=== PATIENT | male | born 1955 | race Caucasian/White ===

== ENCOUNTER 2017-11-02 00:32 | Inpatient (IN) | payer MEDICARE ==
[2017-11-02 01:15] LABS: #Basophils 0.1 thou/uL (0.0-0.2); #Lymphocytes 2.5 thou/uL (1.20-3.40); #Monocytes 1.6 thou/uL (0.11-0.59); #Neutrophils 10.1 thou/uL (1.40-6.50); %Basophils 0.5 % (0.0-1.0); %Eosinophils 0.3 % (0.0-10.0); %Lymphocytes 17.3 % (21.0-51.0); %Neutrophils 70.8 % (42.0-75.0); Hemoglobin 11.9 g/dL (14.0-18.0); Mean Corpuscular HGB CONC 29.5 g/dL (32.0-36.0); Mean Corpuscular Hemoglobin 33.2 pg (27.0-31.0); Mean Platelet Volume 9.2 fL (7.4-10.4); Platelet Count 166 thou/uL (130-400); RBC Distribution Width 15.9 % (11.5-14.5); Red Blood Cell (RBC) Count 3.57 mill/uL (4.70-6.10); White Blood Cell (WBC) Count 14.3 thou/uL (4.8-10.8)
[2017-11-02 01:26] LABS: Base Excess-Venous -18.2 mmol/L (0 (+/- 2.5)); Bicarbonate (HCO3v) 8.1 mmol/L (1.0-85.0); CO2 Tension (PvCO2) 21.2 mmHg (41.0-51.0); Calcium, Ionized 0.96 mmol/L (1.12-1.32); Hemoglobin - Calc 14.3 g/dL (12.0-18.0); O2 Tension (PvO2) 82.1 mmHg (35.0-45.0); T. Carbon Dioxide 8.7 mmol/L (1.0-85.0); pH (Venous) 7.188 (7.35-7.45); vO2 Saturation-calc 93.4 % (94-98)
[2017-11-02] MEDS ORDERED: Insulin Regular 100 units/100 ml in NS IVPB SCH (01:30)
[2017-11-02 01:45] LABS: BUN (Urea Nitrogen) 89 mg/dL (8.4-25.7); Calc. Creatinine Clearance 0 mL/min (70-130); Carbon Dioxide Less than 8 mmol/L (23-31); Chloride 87 mmol/L (98-107); Estimated GFR-MDRD 8; Potassium 5.4 mmol/L (3.5-5.1); Sodium 124 mmol/L (136-145)
[2017-11-02 01:46] LABS: ALT (SGPT) 33 U/L (8-55); AST (SGOT) 36 U/L (5-34); Albumin 2.9 g/dL (3.4-4.8); Alkaline Phosphatase 208 U/L (40-150); Bilirubin, Total 0.5 mg/dL (0.2-1.2); Calcium 8.5 mg/dL (7.8-10.44); Globulin 2.6 g/dL (2.4-3.5); Glucose 1321 mg/dL (80-115); Lipase 7 U/L (8-78); Magnesium 2.5 mg/dL (1.6-2.6); Phosphorus 9.4 mg/dL (2.3-4.7); Protein, Total 5.5 g/dL (5.8-8.1)
[2017-11-02] MEDS ORDERED: D5 1/2 NS w/20 mEq KCL 1,000 ML IV PRN (02:12)
[2017-11-02] MEDS ORDERED: CCU Electrolyte Replacement 1 EACH IVPB ONE (02:12)
[2017-11-02] MEDS ORDERED: Sodium Chloride 0.9% 1,000 ML IV PRN ×4 (02:12)
[2017-11-02] MEDS ORDERED: Dextrose 5 %-0.45 % NaCl 1,000 ML IV PRN (02:12)
[2017-11-02] MEDS ORDERED: NS 0.9% w/ 20 MEQ KCL 1,000 ML IV PRN ×2 (02:12)
[2017-11-02] MEDS ORDERED: Sodium Bicarb 50 MEQ/50 ML Abboject 8.4% SYRINGE IVP SCH (02:15)
[2017-11-02] MEDS ORDERED: Milk Of Magnesia 30 ML UDCUP PO PRN (02:16)
[2017-11-02] MEDS ORDERED: Ondansetron HCl/PF 4 MG/2 ML Vial IVP PRN (02:16)
[2017-11-02] MEDS ORDERED: Magnesium 2 GM/NS 0.9% 100 ML 2 GM in Premix Bag 1 BAG IVPB PRN (02:20)
[2017-11-02] MEDS ORDERED: Potassium Chloride 20 MEQ TAB PO PRN (02:20)
[2017-11-02] MEDS ORDERED: Potassium Phosphate 15 MMOL in Sodium Chloride 0.9% 250 ML 250 ML IV PRN (02:20)
[2017-11-02] MEDS ORDERED: Potassium Phosphate 9 MMOL in Sodium Chloride 0.9% 100 ML IVPB PRN (02:20)
[2017-11-02] MEDS ORDERED: Potassium Chloride 40 MEQ in Sodium Chloride 0.9% 250 ML 250 ML IVPB PRN (02:20)
[2017-11-02] MEDS ORDERED: Potassium Phosphate 12 MMOL in Sodium Chloride 0.9% 250 ML 250 ML IV PRN (02:20)
[2017-11-02] MEDS ORDERED: Potassium Chloride 40 MEQ in Premix Bag 1 BAG IVPB PRN (02:20)
[2017-11-02] MEDS ORDERED: CCU ELECTROLYTE REPLACEMENT PROTOCOL FS PRN (02:20)
[2017-11-02] MEDS ORDERED: Magnesium Oxide 400 MG TAB PO PRN ×2 (02:20)
[2017-11-02] MEDS ORDERED: CCU Electrolyte Replacement 1 EACH FS SCH (02:45)
[2017-11-02] MEDS ORDERED: Sodium Bicarbonate 150 MEQ in Sodium Chloride 0.45% 1,000 ML IV SCH (02:45)
[2017-11-02] MEDS: Sodium Chloride 0.9% 1,000 ML IV SCH ×2 (03:18→03:30)
--- NOTE | 2017-11-02 03:21 | HP ---
PRIMARY CARE PHYSICIAN: Unknown. PRESENTING COMPLAINT: Altered mentation. HISTORY OF PRESENT ILLNESS: Mr. Evin Hooks is a 62-year-old male with a history of type 1 diabetes who presented to the emergency room at [facility] with altered mental status and Kussmaul respiration. His labs reveal blood glucose of over 1700 with elevated beta hydroxybutyrate and anion gap, as well as markedly low serum bicarbonate. The diagnosis of DKA was made. He was given IV insulin and sent to [facility]. At [facility], he was lethargic, oriented x1 with dry mucous membranes and 1+ lower extremity edema bilaterally. It is unclear what dose of insulin he takes at home or when indeed was his last dose. There is no history of reported fevers, chills, chest pain, cough or sputum production. Unclear if he has any dysuria, urgency, frequency or hematuria. He had a blood gas which showed pH of 7.188, pCO2 of 21, and pO2 of 82. Hematology showed mild leukocytosis of 14.3 with hemoglobin of 11.9 and platelet count of 166. Serum chemistry showed sodium of 124, potassium of 5.0, chloride of 87, carbon dioxide less than 8, BUN/creatinine of 89/7.44. His glucose was 1321, phosphorus 9.4 and beta hydroxybutyrate was 8.57 and was immediately started on the DKA protocol and admitted to the Critical Care. History limited 2/2 patient's altered mental status. PAST MEDICAL HISTORY: Type 1 diabetes mellitus, end-stage renal disease, hypertension, and diabetic nephropathy. PAST SURGICAL HISTORY: Status post AV fistula placement and tonsillectomy. FAMILY HISTORY: Unknown. SOCIAL HISTORY: Unknown. ALLERGIES: None. REVIEW OF SYSTEMS: Unable to obtain as patient is with altered mentation. PHYSICAL EXAMINATION: VITAL SIGNS: Blood pressure 156/94, oxygen saturation 99% on room air, respiratory rate 18, and pulse rate 76. GENERAL: Not in acute distress, lying in bed and seems comfortable. HEENT: Normocephalic, atraumatic. Dry mucous membranes. PERRLA. Not pale, anicteric. NECK: Supple, no JVD. RESPIRATORY: Vesicular breath sounds bilaterally. No wheezes or rales or rhonchi. CARDIOVASCULAR: S1, S2 only, regular rate and rhythm, no murmurs, rubs or gallops. ABDOMEN: Soft, not tender, not distended. Bowel sounds normoactive. No hepatosplenomegaly. MUSCULOSKELETAL: A 1+ bilateral lower extremity edema. NEUROLOGIC: Lethargic, oriented to person only, unable to cooperate with exam. SKIN: Warm, dry, well perfused. No edema. PSYCHIATRIC: Unable to cooperate. LABORATORY DATA: As stated in the HPI. IMAGING: None. ASSESSMENT AND PLAN: 1. Diabetic ketoacidosis. The patient with a history of diabetes mellitus on insulin, who presents in florid diabetic ketoacidosis. He has been started on an insulin drip, we will activate the diabetic ketoacidosis protocol. Check labs every 4 hours, venous blood gas every 4 hours. We will also ensure proper hydration. We will monitor his potassium, anion gap, get blood cultures, urinalysis and consider starting on antibiotics. Although, it does not seem an infection as a trigger of this ketoacidosis. We will also place on the bicarbonate drip as pH is 7.1 and bicarbonate in his serum is less than 8. We will admit to the critical care unit. 2. Hypertension. Blood pressure is fairly well controlled. We will monitor blood pressure and resume home medications once confirmed. 3. End-stage renal disease: This is according to chart and note from 12/2016, which states he is on dialysis. We will consult Nephrology. Critical care time: 35 minutes. CODE STATUS: FULL CODE. MTDD
[2017-11-02 04:31] LABS: Anion Gap 35 mmol/L (10-20); BUN (Urea Nitrogen) 90 mg/dL (8.4-25.7); Calc. Creatinine Clearance 12 mL/min (70-130); Calcium 8.4 mg/dL (7.8-10.44); Carbon Dioxide 9 mmol/L (23-31); Chloride 88 mmol/L (98-107); Estimated GFR-MDRD 8; Glucose 1118 mg/dL (80-115); Potassium 5.4 mmol/L (3.5-5.1); Sodium 127 mmol/L (136-145)
[2017-11-02 04:36] LABS: Lymphocytes 19 % (21-51); MDiff Complete? YES; Mean Corpuscular HGB CONC 30.8 g/dL (32.0-36.0); Mean Platelet Volume 8.8 fL (7.4-10.4); Monocytes 15 % (0-10); Neutrophil 66 % (42-75); Nucleated RBC 1 % (0); PLT Morphology Comment Appears Adequate; Platelet Count 139 thou/uL (130-400); RBC Distribution Width 15.8 % (11.5-14.5); Red Blood Cell (RBC) Count 3.64 mill/uL (4.70-6.10); White Blood Cell (WBC) Count 12.9 thou/uL (4.8-10.8)
[2017-11-02] MEDS: Sodium Bicarbonate 150 MEQ in Sodium Chloride 0.45% 1,000 ML IV SCH ×2 (04:49→17:20)
[2017-11-02 06:23] LABS: Glucose 1035 mg/dL (80-115)
[2017-11-02] MEDS ORDERED: Labetalol HCl 100 MG/20 ML VIAL SLOW IVP PRN (06:25)
[2017-11-02 07:12] LABS: Glucose 959 mg/dL (80-115)
[2017-11-02 07:49] LABS: Anion Gap 31 mmol/L (10-20); BUN (Urea Nitrogen) 87 mg/dL (8.4-25.7); Calc. Creatinine Clearance 12 mL/min (70-130); Calcium 8.5 mg/dL (7.8-10.44); Carbon Dioxide 14 mmol/L (23-31); Chloride 91 mmol/L (98-107); Estimated GFR-MDRD 8; Potassium 4.8 mmol/L (3.5-5.1); Sodium 131 mmol/L (136-145)
[2017-11-02 08:24] LABS: Glucose 896 mg/dL (80-115)
[2017-11-02 08:56] LABS: Actual Bicarbonate (HCO3v) 17 mEq/L (22-26); Base Excess -6.3 mEq/L (0 (+/- 2.5)); Calcium, Ionized 0.97 mmol/L (1.16-1.32); Chloride (ABG LAB) 94 mmol/L (98-106); Hematocrit-VBG 39.5 % (39-50); Hemoglobin (Hb) 11.1 g/dL (13.1-17.2); Sodium 128.6 mmol/L (133-146); pH (venous) 7.42 (7.35-7.45)
[2017-11-02 08:58] LABS: Actual Bicarbonate (HCO3v) 15 mEq/L (22-26); Base Excess -9.8 mEq/L (0 (+/- 2.5)); Hematocrit-VBG 42.5 % (39-50); Hemoglobin (Hb) 11.4 g/dL (13.1-17.2); Potassium - ABG Lab 4.5 mmol/L (3.70-5.30); Sodium 129.5 mmol/L (133-146); pH (venous) 7.32 (7.35-7.45)
[2017-11-02 08:59] LABS: Calcium, Ionized 0.92 mmol/L (1.16-1.32); Chloride (ABG LAB) 93 mmol/L (98-106)
[2017-11-02] MEDS ORDERED: Prevnar 13-Val Conj/PF 0.5 ML SYRINGE IM ONE (09:00)
[2017-11-02 09:23] LABS: HBSAg Index 0.15 S/CO (0-0.99); Hep B Surf Ag Non-Reactive S/CO (NonReactive)
[2017-11-02 09:31] LABS: Glucose 736 mg/dL (80-115)
[2017-11-02 09:46] LABS: Glucose 655 mg/dL (80-115)
[2017-11-02 10:15] LABS: Glucose 516 mg/dL (80-115)
[2017-11-02 10:44] LABS: pH (venous) 7.38 (7.35-7.45)
[2017-11-02 10:45] LABS: Actual Bicarbonate (HCO3v) 23 mEq/L (22-26)
[2017-11-02 10:48] LABS: Hematocrit-VBG 39.8 % (39-50); Hemoglobin (Hb) 11.3 g/dL (13.1-17.2)
[2017-11-02 10:49] LABS: Calcium, Ionized 1.04 mmol/L (1.16-1.32); Chloride (ABG LAB) 95 mmol/L (98-106); Potassium - ABG Lab 3.7 mmol/L (3.70-5.30); Sodium 135.6 mmol/L (133-146)
[2017-11-02 11:14] LABS: Anion Gap 23 mmol/L (10-20); BUN (Urea Nitrogen) 66 mg/dL (8.4-25.7); Calc. Creatinine Clearance 16 mL/min (70-130); Calcium 8.4 mg/dL (7.8-10.44); Carbon Dioxide 22 mmol/L (23-31); Chloride 95 mmol/L (98-107); Estimated GFR-MDRD 10; Glucose 526 mg/dL (80-115); Potassium 3.9 mmol/L (3.5-5.1); Sodium 136 mmol/L (136-145)
[2017-11-02 11:22] LABS: Glucose 373 mg/dL (80-115)
--- NOTE | 2017-11-02 11:52 | PDOC.PN ---
- Subjective Encounter Start Date: 11/02/17 Encounter Start Time: 11:51 CC: Altered mental status Sub: pt is lethargic but more arousable - Objective Vital Signs & Weight: Vital Signs (12 hours) Temp 11/02/17 07:00 99.7 F H 11/02/17 05:00 97.7 F Weight Weight 182 lb 5.156 oz Most Recent Monitor Data Heart Rate from ECG 79 NIBP 143/68 NIBP BP-Mean 99 Respiration from ECG 0 SpO2 100 I&O: 11/01/17 11/02/17 11/03/17 06:59 06:59 06:59 Intake Total 170 Output Total 0 0 Balance 170 0 Result Diagrams: 11/02/17 03:43 11/02/17 11:14 Phys Exam - Physical Examination Constitutional: NAD lethargic HEENT: moist MMs Respiratory: no wheezing, no rales poor inspiratory effort, no accessory muscle usage seen s1 s2 present, mild tachy, no rubs, no gallop Gastrointestinal: soft, non-tender, positive bowel sounds Musculoskeletal: no edema Neurological: non-focal lethargic, but arousable, not following all commands Deviation from normal: mood lethargic Skin: no rash Dx/Plan - Plan Pt IS 62 YRS OLD MALE 1. DKA 2. DM Type 2 3. Anion gap metabolic acidosis 4. ESRD 5. Metabolic encephalopathy 6. HTN Plan: will check CT head with out contrast and ammonia levels now Critical care team on board. Continue insulin drip and will wean to subq insulin per protocol Monitor mental status closely Monitor bp closely Case d/w pt & RN Admitted early this morning.
[2017-11-02 12:55] LABS: Base Excess 2.1 mEq/L (0 (+/- 2.5)); pH (venous) 7.45 (7.35-7.45)
[2017-11-02 12:56] LABS: Calcium, Ionized 1.03 mmol/L (1.16-1.32); Hematocrit-VBG 39.4 % (39-50); Hemoglobin (Hb) 11.4 g/dL (13.1-17.2); Potassium - ABG Lab 3.1 mmol/L (3.70-5.30); Sodium 137.9 mmol/L (133-146)
[2017-11-02 13:05] LABS: Glucose 272 mg/dL (80-115)
[2017-11-02 13:23] LABS: Troponin I 0.637 ng/mL (< 0.028)
[2017-11-02 13:46] LABS: Glucose 211 mg/dL (80-115)
[2017-11-02 13:50] LABS: Potassium 3.3 mmol/L (3.5-5.1)
--- NOTE | 2017-11-02 13:50 | CON ---
DATE OF CONSULTATION: 11/02/2017 RENAL MEDICINE HISTORY OF PRESENT ILLNESS: Mr. Hooks is a 62-year-old white male with a history of ESRD from diabe tic nephropathy and admitted for mental status change. He was noted to be in DKA with carbon dioxide of less than 8. His glucose was more than 1000 mg percent. The patient is the ICU on insulin drip. We are being consulted for his maintenance hemodialysis. He is currently undergoing dialysis witho ut heparin. The filter clotted and we had to resume back/restart dialysis. I am at the bedside supe rvising his dialysis. REVIEW OF SYSTEMS: Positive for mental status change. No chest pain, no shortness of breath, no gregory sea, no vomiting, no diarrhea, no constipation, no syncopal episode, no productive cough, no fever or chills. Decreased appetite, occasional nausea, no gross hematuria, no diarrhea. MEDICATIONS: Currently on lactulose 20 grams every day p.r.n., magnesium sulfate 2 grams over 2 hour s, electrolyte protocol. Currently on bicarbonate drip. Patient also on an insulin drip 6 units per hour. PAST MEDICAL HISTORY: 1. ESRD from diabetic nephropathy. 2. Hypertension. 3. Type 2 diabetes mellitus. PAST SURGICAL HISTORY: 1. Status post AV fistula placement. 2. Status post cuffed dialysis catheter placement. 3. Status post tonsillectomy. SOCIAL HISTORY: Patient is single, . One child lives in [place]. Currently, no smoking, occa sional alcohol intake, no IV drug abuse, no blood transfusion. Retired [employer]. Education one yea r college. FAMILY HISTORY: No family history of ESRD. ALLERGIES: None. TRAUMA: None. IMMUNIZATIONS: Up to date. HOSPITALIZATIONS: Please see past medical history. PHYSICAL EXAMINATION: VITAL SIGNS: Blood pressure is 143/68, heart rate 79, respiratory rate 12, and pulse ox 99%. GENERAL: Patient is arousable, but confused, not in overt distress. SKIN: Adequate turgor. HEENT: He has pinkish conjunctivae, anicteric sclerae. NECK: No neck mass, no carotid bruits, no JVD. CHEST: No deformities. LUNGS: Clear breath sounds, no wheezing, no crackles. HEART: Normal sinus rhythm. No murmurs, no gallops, no rubs. ABDOMEN: Globular, soft, nontender, no masses. EXTREMITIES: No edema. NEUROLOGIC: Patient is confused, moving all extremities. No tremors, no asterixis. LABORATORY DATA: Laboratories of 11/02/2017, white count 12.9, hemoglobin 12, sodium 136, potassium 3.9, chloride 95, carbon dioxide 22, BUN 66, creatinine 5.57, glucose 596, calcium 8.4. ASSESSMENT AND PLAN: 1. Diabetic ketoacidosis - currently on insulin drip. Continue supportive care. The patient has so me compliance issues with his insulin regimen. 2. End-stage renal disease, stable. Tolerating current hemodialysis regimen. Fluid removal as tole rated by the patient. No changes to be made with the current dialysis regimen. My last review of e Kt/V suggests adequately dialyzed with the current dialysis regimen. Agree with current management.
--- NOTE | 2017-11-02 14:14 | CON ---
DATE OF CONSULTATION: 11/02/2017 Mr. Hooks is a 62-year-old male with diabetes. He is also a dialysis patient. He apparently presented with altered mental status and was referred here. He was found to be hyperos molar. PAST MEDICAL HISTORY: Remarkable for hypertension and diabetic nephropathy and vascular access proce dures. PAST SURGICAL HISTORY: Remarkable for a tonsillectomy. FAMILY HISTORY: Not reliably obtainable. SOCIAL HISTORY: It is unknown whether he smokes or drinks. ALLERGIES: There are no allergies recorded. REVIEW OF SYSTEMS: Not accurately obtainable. PHYSICAL EXAMINATION: GENERAL: He will awaken. He will nod. He is confused, answers questions in one word sentences. VITAL SIGNS: Heart rate 79, blood pressure 143/68, respiratory rates 18. He is in no distress. HEENT: Pupils react. Sclerae is anicteric. Extraocular movements appear to be full. He moves all of his extremities. NECK: Without lymphadenopathy. LUNGS: Clear anteriorly. HEART: Regular rhythm. S1 and S2 are normal. ABDOMEN: Soft and nontender. EXTREMITIES: Without clubbing, cyanosis, or edema. LABORATORY DATA: White count 12.9, hemoglobin 12.0, platelets 139. Sodium 137, potassium 3.1, chlor shalom 97. PH was 7.181, CO2 21, PO2 82. There are no cultures reported out. Glucose was 1321, it is down to 211. IMPRESSION: 1. Hyperosmolar coma. 2. Metabolic acidosis which could be a mixture of acidosis from end-stage renal disease and starvati on ketosis. At 62 years of age, it would seem that it would be unlikely that he is a type 1 diabetic (a true type 1). His insulin drip needs to be decreased. His hyperglycemia needs to be corrected slowly, although it has already been corrected down to the 200 range. Letting him drift back up would not be harmful. Hopefully, he will not develop cerebral edema with c orrection of his hyperosmolar state. He should remain in the Critical Care Unit. Critical care time was 30 minutes.
--- NOTE | 2017-11-02 16:25 | CT ---
CT BRAIN WITHOUT CONTRAST: INDICATIONS: Altered mental status. History of DKA. Concern for possible lung mass. FINDINGS: There are prominent calcifications involving the arteries of the scalp. No acute infarct, hemorrhage , or hydrocephalus present. The septum pellucidum and third ventricle are midline. The mastoid air cells are clear. The paranasal sinuses are clear. IMPRESSION: No acute intracranial abnormality. POS: RACHEL
[2017-11-02] MEDS: Pantoprazole 40 MG VIAL IVP SCH (17:16)
[2017-11-02 19:59] LABS: Anion Gap 15 mmol/L (10-20); BUN (Urea Nitrogen) 37 mg/dL (8.4-25.7); Calc. Creatinine Clearance 23 mL/min (70-130); Calcium 8.2 mg/dL (7.8-10.44); Carbon Dioxide 29 mmol/L (23-31); Chloride 99 mmol/L (98-107); Estimated GFR-MDRD 15; Glucose 123 mg/dL (80-115); Potassium 3.9 mmol/L (3.5-5.1); Sodium 139 mmol/L (136-145)
[2017-11-02 20:16] LABS: Critical Call Chem Troponin I RESULT DECREASING; Troponin I 0.581 ng/mL (< 0.028)
[2017-11-02] MEDS ORDERED: Dextrose 5% in Water 1,000 ML IV PRN (20:40)
[2017-11-02] MEDS ORDERED: Insulin Detemir 100 UNITS/ML 35 UNITS in Pre-Filled Syringe 1 EACH SC SCH (20:45)
[2017-11-03 00:17] LABS: Critical Call Chem Troponin I RESULT DECREASING; Troponin I 0.577 ng/mL (< 0.028)
[2017-11-03] MEDS: Dextrose 50% Abboject 50 ML SYRINGE IVP PRN ×2 (03:34→03:53)
[2017-11-03] MEDS: Sodium Bicarbonate 150 MEQ in Sodium Chloride 0.45% 1,000 ML IV SCH (03:37)
[2017-11-03] MEDS ORDERED: Dextrose 50% Abboject 50 ML SYRINGE SLOW IVP SCH (04:00)
[2017-11-03] MEDS: Dextrose 10% in Water 1,000 ML IV SCH ×2 (04:06→18:08)
[2017-11-03 04:30] LABS: #Lymphocytes 1.8 thou/uL (1.20-3.40); #Monocytes 0.8 thou/uL (0.11-0.59); #Neutrophils 8.3 thou/uL (1.40-6.50); %Basophils 0.2 % (0.0-1.0); %Eosinophils 0.4 % (0.0-10.0); %Lymphocytes 16.3 % (21.0-51.0); %Monocytes 7.4 % (0.0-10.0); %Neutrophils 75.7 % (42.0-75.0); Hemoglobin 12.4 g/dL (14.0-18.0); Mean Corpuscular HGB CONC 31.6 g/dL (32.0-36.0); Mean Corpuscular Hemoglobin 31.7 pg (27.0-31.0); Mean Platelet Volume 8.4 fL (7.4-10.4); Platelet Count 121 thou/uL (130-400); RBC Distribution Width 16.1 % (11.5-14.5); Red Blood Cell (RBC) Count 3.92 mill/uL (4.70-6.10); White Blood Cell (WBC) Count 10.9 thou/uL (4.8-10.8)
[2017-11-03 04:42] LABS: Anion Gap 12 mmol/L (10-20); BUN (Urea Nitrogen) 39 mg/dL (8.4-25.7); Calc. Creatinine Clearance 20 mL/min (70-130); Calcium 8.2 mg/dL (7.8-10.44); Carbon Dioxide 32 mmol/L (23-31); Chloride 101 mmol/L (98-107); Estimated GFR-MDRD 14; Glucose 29 mg/dL (80-115); Phosphorus 4.7 mg/dL (2.3-4.7); Potassium 3.3 mmol/L (3.5-5.1); Sodium 142 mmol/L (136-145)
[2017-11-03] MEDS: Pantoprazole 40 MG VIAL IVP SCH (08:29)
--- NOTE | 2017-11-03 09:12 | PRG ---
DATE OF SERVICE: 11/03/2017 RENAL MEDICINE SUBJECTIVE: Mr. Hooks is a 62-year-old white male with ESRD and was admitted for DKA. His blood woodward gars much improved. He is now mentating better. Yesterday, he was quite confused. He underwent hem odialysis yesterday. He voices no new complaints today. He denies any chest pain or shortness of br eath. PHYSICAL EXAMINATION: VITAL SIGNS: Blood pressure 156/54, heart rate 54, respiratory rate 12, pulse ox 100%. GENERAL: Awake, alert, comfortable, not in distress. SKIN: Adequate turgor. HEENT: He has pinkish conjunctivae, anicteric sclerae. NECK: No neck mass, no carotid bruits, no JVD. CHEST: No deformities. LUNGS: Clear breath sounds. HEART: Normal sinus rhythm. No murmurs, no gallops, no rubs. ABDOMEN: Globular, soft, nontender, no masses. EXTREMITIES: No edema, no deformities. MEDICATIONS: Medications of 11/03/2017 reviewed. LABORATORY DATA: Laboratories of 11/03/2017; white count 10, hemoglobin 12.4. Platelet count 121,000. Sodium 142, potassium 3.3, chloride 101, carbon dioxide 32, BUN 39, creatinine 4.45, glucose is now 1 26. ASSESSMENT AND PLAN: 1. Diabetic ketoacidosis - clinically, much improved. The patient was placed on an insulin drip. C urrently doing better. Sugar was a little low this morning and he was given D50. He is now tolerati ng p.o. 2. End-stage renal disease, stable. We will continue current Thursday, Thursday, Thursday dialysis. A gain, fluid removal only as tolerated by the patient. Adjust heparin dose. Adjust potassium in the dialysis bath. 3. Hyperphosphatemia - this is chronic in nature. Start Renvela 800 mg 1 tab t.i.d. with meals.
[2017-11-03] MEDS: Sevelamer Carbonate 800 MG TAB PO SCH ×2 (12:02→18:00)
[2017-11-03 12:32] LABS: Anion Gap 11 mmol/L (10-20); BUN (Urea Nitrogen) 40 mg/dL (8.4-25.7); Calc. Creatinine Clearance 19 mL/min (70-130); Calcium 7.9 mg/dL (7.8-10.44); Carbon Dioxide 33 mmol/L (23-31); Chloride 99 mmol/L (98-107); Estimated GFR-MDRD 13; Glucose 97 mg/dL (80-115); Potassium 3.9 mmol/L (3.5-5.1); Sodium 139 mmol/L (136-145)
--- NOTE | 2017-11-03 13:53 | PDOC.PN ---
- Subjective Encounter Start Date: 11/03/17 Encounter Start Time: 10:30 Subjective: pt up in bed sleeping, easily arousable. no complains - Objective Vital Signs & Weight: Vital Signs (12 hours) Temp Pulse Resp Pulse Ox 11/03/17 12:00 98.6 F 11/03/17 08:00 98.0 F 65 18 96 11/03/17 04:00 99.2 F Weight Admit Weight 182 lb Weight 173 lb 8.061 oz Most Recent Monitor Data Heart Rate from ECG 74 NIBP 164/98 NIBP BP-Mean 128 Respiration from ECG 0 SpO2 100 I&O: 11/02/17 11/03/17 11/04/17 06:59 06:59 06:59 Intake Total 170 2658.4 480 Output Total 0 0 0 Balance 170 2658.4 480 Result Diagrams: 11/03/17 04:20 11/03/17 12:03 Additional Labs: Accuchecks 11/03/17 11/03/17 11/03/17 11:27 09:15 06:34 POC Glucose 93 109 126 H 11/03/17 11/03/17 11/03/17 05:31 05:02 04:20 POC Glucose 92 53 L* Less than 35 L* 11/03/17 11/03/17 11/03/17 04:06 03:51 03:35 POC Glucose Less than 35 L* Less than 35 L* Less than 35 L* 11/02/17 11/02/17 11/02/17 23:46 20:30 19:40 POC Glucose 83 143 H 112 H 11/02/17 11/02/17 17:48 15:38 POC Glucose 208 H 350 H Phys Exam - Physical Examination HEENT: PERRLA Neck: no nodes Respiratory: no wheezing, no rales Cardiovascular: RRR, no significant murmur Gastrointestinal: soft, non-tender Musculoskeletal: no edema Neurological: non-focal Dx/Plan - Plan * . Pt IS 62 YRS OLD MALE 1. DKA 2. DM Type 2 3. Anion gap metabolic acidosis 4. ESRD 5. Metabolic encephalopathy 6. HTN Plan: pt off insulin drip, was given lantus last night and became hypoglycemic. will decrease his lantus dose to 10units for now in additional to his sliding scale. ct head is negative. dialysis per nephrology will start pt on his [facility] to verify his meds Review of Systems - Review of Systems Eyes: negative: Pain, Vision Change, Conjunctivae Inflammation, Eyelid Inflammation, Redness, Other Respiratory: negative: Cough, Dry, Shortness of Breath, Hemoptysis, SOB with Excertion, Pleuritic Pain, Sputum, Wheezing Cardiovascular: negative: chest pain, palpitations, orthopnea, paroxysmal nocturnal dyspnea, edema, light headedness, other Gastrointestinal: negative: Nausea, Vomiting, Abdominal Pain, Diarrhea, Constipation, Melena, Hematochezia, Other Genitourinary: negative: Dysuria, Frequency, Incontinence, Hematuria, Retention , Other Musculoskeletal: negative: Neck Pain, Shoulder Pain, Arm Pain, Back Pain, Hand Pain, Leg Pain, Foot Pain, Other - Medications/Allergies Allergies/Adverse Reactions: Allergies Allergy/AdvReac Type Severity Reaction Status Date / Time No Known Allergies Allergy Verified 11/02/17 03:41 Medications: Current Medications Dextrose/Water (Dextrose 50%) 25 gm IVP PRN PRN PRN Reason: HYPOGLYCEMIA PROTOCOL Last Admin: 11/03/17 03:53 Dose: 25 gm Glucagon (Glucagon) 1 mg IM PRN PRN PRN Reason: HYPOGLYCEMIA PROTOCOL Dextrose/Water (D5w) 1,000 mls @ 0 mls/hr IV INF PRN; As Directed PRN Reason: HYPOGLYCEMIA PROTOCOL Dextrose/Water (Dextrose 10% In Water) 1,000 mls @ 70 mls/hr IV .[id number] [facility] Last Admin: 11/03/17 04:06 Dose: 1,000 mls Insulin Detemir 10 units/ (Miscellaneous Medication) 0.1 mls @ 0 mls/hr SC [facility] Insulin Human Regular (Humulin R) 0 units SC .MODERATE SLIDING SC PRN; Protocol PRN Reason: MODERATE SLIDING SCALE Labetalol HCl (Normodyne) 10 mg SLOW IVP Q4H PRN PRN Reason: SBP Greater Than 180 Lactulose (Lactulose) 20 gm PO DAILYPRN PRN PRN Reason: Constipation Ondansetron HCl (Zofran) 4 mg IVP Q6H PRN PRN Reason: Nausea/Vomiting Pantoprazole Sodium (Protonix) 40 mg IVP DAILY [facility] Last Admin: 11/03/17 08:29 Dose: 40 mg Sevelamer Carbonate (Renvela) 800 mg PO TID-[facility] Last Admin: 11/03/17 12:02 Dose: 800 mg Sodium Chloride (Flush - Normal Saline) 10 ml IVF Q12HR [facility] Last Admin: 11/03/17 08:29 Dose: 10 ml Sodium Chloride (Flush - Normal Saline) 10 ml IVF PRN PRN PRN Reason: Saline Flush
[2017-11-03] MEDS: NIFEdipine 10 MG CAP PO SCH ×2 (15:54→21:07)
--- NOTE | 2017-11-03 16:15 | PRG ---
DATE OF SERVICE: 11/03/2017 SUBJECTIVE: Mr. Hooks says he is feeling better. He is little slow to respond to questions, but an swers appropriately. OBJECTIVE: VITAL SIGNS: His heart rate is in the 70s, blood pressure 164/98, respiratory rates in the teens. LUNGS: Clear. HEART: Regular rhythm. ABDOMEN: Soft. LABORATORY DATA: White count 10.9, hemoglobin 12.4, and platelets 121. Sodium 139, potassium 3.9, chloride 99, bicarbonate 32, BUN 40, and creatinine 4.6. Intake and output is positive 2658 IMPRESSION: 1. End-stage renal disease on dialysis. 2. Brittle diabetes, status post hyperosmolar coma, clinically stable. He denies headache. He is stable to move out of the Critical Care Unit in my opinion. Blood sugar will need to be watche d closely.
[2017-11-03] MEDS ORDERED: Insulin Detemir 100 UNITS/ML 35 UNITS in Pre-Filled Syringe 1 EACH SC SCH (21:00)
[2017-11-03] MEDS ORDERED: Insulin Detemir 100 UNITS/ML 10 UNITS in Pre-Filled Syringe 1 EACH SC SCH (21:00)
[2017-11-04] MEDS ORDERED: Lorazepam 0.5 MG TAB PO SCH (00:45)
[2017-11-04 05:12] LABS: #Lymphocytes 1.9 thou/uL (1.20-3.40); #Monocytes 0.4 thou/uL (0.11-0.59); #Neutrophils 2.9 thou/uL (1.40-6.50); %Basophils 0.9 % (0.0-1.0); %Eosinophils 0.5 % (0.0-10.0); %Lymphocytes 35.9 % (21.0-51.0); %Monocytes 7.7 % (0.0-10.0); %Neutrophils 55.1 % (42.0-75.0); Hemoglobin 11.1 g/dL (14.0-18.0); Mean Corpuscular Hemoglobin 32.2 pg (27.0-31.0); Mean Platelet Volume 9.1 fL (7.4-10.4); Platelet Count 69 thou/uL (130-400); RBC Distribution Width 16.2 % (11.5-14.5); Red Blood Cell (RBC) Count 3.44 mill/uL (4.70-6.10); White Blood Cell (WBC) Count 5.3 thou/uL (4.8-10.8)
[2017-11-04 05:37] LABS: Anion Gap 14 mmol/L (10-20); BUN (Urea Nitrogen) 47 mg/dL (8.4-25.7); Calc. Creatinine Clearance 16 mL/min (70-130); Calcium 7.3 mg/dL (7.8-10.44); Carbon Dioxide 28 mmol/L (23-31); Chloride 96 mmol/L (98-107); Estimated GFR-MDRD 11; Glucose 101 mg/dL (80-115); Phosphorus 5.1 mg/dL (2.3-4.7); Sodium 134 mmol/L (136-145)
[2017-11-04] MEDS: Sevelamer Carbonate 800 MG TAB PO SCH ×3 (07:46→18:13)
[2017-11-04] MEDS: NIFEdipine 10 MG CAP PO SCH ×2 (09:00→14:28)
[2017-11-04] MEDS: Pantoprazole 40 MG VIAL IVP SCH (09:00)
--- NOTE | 2017-11-04 10:26 | PRG ---
DATE OF SERVICE: 11/04/2017 Mr. Hooks is a 62-year-old white male with ESRD on maintenance hemodialysis and admitted for DKA. S talia the initial episode of DKA he is much improved, blood sugars improved. He is now currently unde rgoing hemodialysis. I am at the bedside supervising his dialysis. He voices no new complaints. He denies any chest pain, shortness of breath. PHYSICAL EXAMINATION: VITAL SIGNS: Blood pressure 156/84, heart rate 78, respiratory rate 16, temperature 98.4, pulse ox 9 6%. GENERAL: Noted to be awake, alert, comfortable, not in distress. SKIN: Adequate turgor. HEENT: He has pinkish conjunctivae, anicteric sclerae. NECK: No neck mass, no carotid bruits, no JVD. CHEST: No deformities. LUNGS: Clear breath sounds. HEART: Normal sinus rhythm. No murmur, no gallops, no rubs. ABDOMEN: Globular, soft, nontender. No masses. EXTREMITIES: No edema. MEDICATIONS: 11/04/2017 - Reviewed. LABORATORIES 11/04/2017 - White count 5.3, hemoglobin 11.1. Sodium 134, potassium 4, chloride 96, ca rbon dioxide 28, BUN 57, creatinine 5.38, calcium 7.3, phosphorus 5.1. ASSESSMENT AND PLAN: 1. Hyperphosphatemia. The patient started on Renvela 800 mg 1 tab t.i.d. with meals. 2. End-stage renal disease, stable. We will continue current maintenance hemodialysis on Thursday, , and Thursday. Again, fluid removal as tolerated. 3. Diabetic ketoacidosis, resolved. Continue current insulin regimen. Overall I agree with current management. Recheck base met and CBC in a.m.
[2017-11-04] MEDS: Dextrose 10% in Water 1,000 ML IV SCH (14:28)
[2017-11-04] MEDS ORDERED: Acetaminophen 325 MG TAB PO PRN (14:34)
--- NOTE | 2017-11-04 14:38 | PDOC.PN ---
- Subjective Encounter Start Date: 11/04/17 Encounter Start Time: 11:00 Subjective: pt up in dialysis no compalins - Objective Vital Signs & Weight: Vital Signs (12 hours) Temp Pulse Resp BP BP BP Pulse Ox 11/04/17 14:24 180/109 H 11/04/17 08:00 98.4 F 78 16 96 11/04/17 07:34 98.4 F 78 16 156/84 H 96 11/04/17 04:00 98.2 F 73 18 146/75 H 97 Weight Admit Weight 182 lb Weight 173 lb 8.061 oz Most Recent Monitor Data Heart Rate from ECG 74 NIBP 138/71 NIBP BP-Mean 103 Respiration from ECG 15 SpO2 99 I&O: 11/03/17 11/04/17 11/05/17 06:59 06:59 06:59 Intake Total 2658.4 2510 Output Total 0 0 Balance 2658.4 2510 Result Diagrams: 11/04/17 04:23 11/04/17 04:23 Additional Labs: Accuchecks 11/04/17 11/04/17 11/04/17 07:35 04:42 00:19 POC Glucose 82 100 129 H 11/03/17 11/03/17 19:59 17:11 POC Glucose 108 78 Phys Exam - Physical Examination HEENT: PERRLA Neck: no nodes Respiratory: no wheezing, no rales Cardiovascular: RRR, no significant murmur Gastrointestinal: soft, non-tender Musculoskeletal: no edema Dx/Plan - Plan * . Pt IS 62 YRS OLD MALE 1. DKA 2. DM Type 1? 3. Anion gap metabolic acidosis 4. ESRD 5. Metabolic encephalopathy 6. HTN Plan: pt off insulin drip, was given lantus last night and became hypoglycemic. will decrease his lantus dose to 10units for now in additional to his sliding scale. 11/04 will decrease levemir to 5units and lower d10 at 50cc/hr ct head is negative. dialysis per nephrology will start pt on his procardia/lisinopril and hydralizine Review of Systems - Review of Systems Eyes: negative: Pain, Vision Change, Conjunctivae Inflammation, Eyelid Inflammation, Redness, Other ENT: negative: Ear Pain, Ear Discharge, Nose Pain, Nose Discharge, Nose Congestion, Mouth Pain, Mouth Swelling, Throat Pain, Throat Swelling, Other Respiratory: negative: Cough, Dry, Shortness of Breath, Hemoptysis, SOB with Excertion, Pleuritic Pain, Sputum, Wheezing Cardiovascular: negative: chest pain, palpitations, orthopnea, paroxysmal nocturnal dyspnea, edema, light headedness, other Gastrointestinal: negative: Nausea, Vomiting, Abdominal Pain, Diarrhea, Constipation, Melena, Hematochezia, Other Genitourinary: negative: Dysuria, Frequency, Incontinence, Hematuria, Retention , Other Musculoskeletal: negative: Neck Pain, Shoulder Pain, Arm Pain, Back Pain, Hand Pain, Leg Pain, Foot Pain, Other - Medications/Allergies Allergies/Adverse Reactions: Allergies Allergy/AdvReac Type Severity Reaction Status Date / Time No Known Allergies Allergy Verified 11/02/17 03:41 Medications: Current Medications Acetaminophen (Tylenol) 650 mg PO Q6H PRN PRN Reason: Pain Dextrose/Water (Dextrose 50%) 25 gm IVP PRN PRN PRN Reason: HYPOGLYCEMIA PROTOCOL Last Admin: 11/03/17 03:53 Dose: 25 gm Glucagon (Glucagon) 1 mg IM PRN PRN PRN Reason: HYPOGLYCEMIA PROTOCOL Hydralazine HCl (Apresoline) 25 mg PO TID [facility] Dextrose/Water (D5w) 1,000 mls @ 0 mls/hr IV INF PRN; As Directed PRN Reason: HYPOGLYCEMIA PROTOCOL Insulin Detemir 5 units/ (Miscellaneous Medication) 0.05 mls @ 0 mls/hr SC HS [facility] Dextrose/Water (Dextrose 10% In Water) 1,000 mls @ 50 mls/hr IV .Q20H [facility] Insulin Human Regular (Humulin R) 0 units SC .MODERATE SLIDING SC PRN; Protocol PRN Reason: MODERATE SLIDING SCALE Lactulose (Lactulose) 20 gm PO DAILYPRN PRN PRN Reason: Constipation Lisinopril (Zestril) 20 mg PO DAILY [facility] Nifedipine (Procardia Xl) 60 mg PO BID [facility] Ondansetron HCl (Zofran) 4 mg IVP Q6H PRN PRN Reason: Nausea/Vomiting Pantoprazole Sodium (Protonix) 40 mg PO DAILY [facility] Sevelamer Carbonate (Renvela) 800 mg PO TID-[facility] Last Admin: 11/04/17 14:28 Dose: 800 mg Sodium Chloride (Flush - Normal Saline) 10 ml IVF Q12HR [facility] Last Admin: 11/04/17 07:47 Dose: 10 ml Sodium Chloride (Flush - Normal Saline) 10 ml IVF PRN PRN PRN Reason: Saline Flush
[2017-11-04] MEDS ORDERED: Dextrose 10% in Water 1,000 ML IV SCH (14:45)
[2017-11-04] MEDS ORDERED: Lisinopril 20 MG TAB PO SCH (15:00)
[2017-11-04 15:07] VITALS: BMI 25.6
[2017-11-04] MEDS: hydrALAZINE 25 MG TAB PO SCH ×2 (15:32→21:14)
[2017-11-04] MEDS ORDERED: Insulin Detemir 100 UNITS/ML 5 UNITS in Pre-Filled Syringe 1 EACH SC SCH (21:00)
[2017-11-04] MEDS: NIFEdipine XL 60 MG TAB PO SCH (21:14)
[2017-11-04] MEDS: Lorazepam 0.5 MG TAB PO PRN (21:16)
[2017-11-04] MEDS: Insulin Regular 300 UNITS/3 ML VIAL SC PRN (21:29)
[2017-11-05 08:14] LABS: #Lymphocytes 1.8 thou/uL (1.20-3.40); #Monocytes 0.5 thou/uL (0.11-0.59); #Neutrophils 3.2 thou/uL (1.40-6.50); %Basophils 0.8 % (0.0-1.0); %Eosinophils 0.7 % (0.0-10.0); %Lymphocytes 32.8 % (21.0-51.0); %Monocytes 8.5 % (0.0-10.0); %Neutrophils 57.2 % (42.0-75.0); Hemoglobin 11.6 g/dL (14.0-18.0); Mean Corpuscular HGB CONC 31.6 g/dL (32.0-36.0); Mean Corpuscular Hemoglobin 32.1 pg (27.0-31.0); Mean Platelet Volume 10.8 fL (7.4-10.4); Platelet Count 47 thou/uL (130-400); RBC Distribution Width 15.9 % (11.5-14.5); White Blood Cell (WBC) Count 5.6 thou/uL (4.8-10.8)
[2017-11-05 08:42] LABS: Anion Gap 17 mmol/L (10-20); BUN (Urea Nitrogen) 37 mg/dL (8.4-25.7); Calc. Creatinine Clearance 19 mL/min (70-130); Calcium 7.7 mg/dL (7.8-10.44); Carbon Dioxide 25 mmol/L (23-31); Chloride 96 mmol/L (98-107); Estimated GFR-MDRD 13; Glucose 165 mg/dL (80-115); Phosphorus 4.7 mg/dL (2.3-4.7); Potassium 4.3 mmol/L (3.5-5.1); Sodium 134 mmol/L (136-145)
[2017-11-05] MEDS: Sevelamer Carbonate 800 MG TAB PO SCH ×3 (09:20→17:14)
[2017-11-05] MEDS: hydrALAZINE 25 MG TAB PO SCH ×2 (09:20→14:02)
[2017-11-05] MEDS: NIFEdipine XL 60 MG TAB PO SCH (09:21)
[2017-11-05] MEDS: Insulin Detemir 100 UNITS/ML 10 UNITS in Pre-Filled Syringe 1 EACH SC SCH (09:27)
--- NOTE | 2017-11-05 10:32 | PRG ---
DATE OF SERVICE: 11/05/2017 SERVICE: Renal Medicine. SUBJECTIVE: Mr. Hooks is a 62-year-old white male with ESRD - on maintenance hemodialysis and admit [place]ingo for DKA. He has been improving over the last few days. He is tolerating his hemodialysis. Toda y, he has no new complaints. He denies any chest pain or shortness of breath. His p.o. intake is mu ch improved. PHYSICAL EXAMINATION: VITAL SIGNS: Blood pressure is 136/82, heart rate 76, respiratory rate 16, temperature 98, pulse ox is 96%. GENERAL: Awake, alert, supine, comfortable, not in distress. SKIN: Adequate turgor. HEENT: Pinkish conjunctivae, anicteric sclerae. NECK: No neck mass, no carotid bruits, no JVD. CHEST: No deformities. LUNGS: Clear breath sounds, no wheezing, no crackles. HEART: Normal sinus rhythm. No murmur, no gallops, no rubs. ABDOMEN: Globular, soft, nontender, no masses. EXTREMITIES: No edema, no deformities. MEDICATIONS: Of 11/05/2017 was reviewed. LABORATORY DATA: Of 11/05/2017, white count 5.6, hemoglobin 11.6. Sodium 134, potassium 4.3, chlori de 96, carbon dioxide 25, BUN 37, creatinine 4.57, glucose 165, calcium 7.7, phosphorus 4.7. ASSESSMENT AND PLAN: 1. Hyperphosphatemia, improving. Continue current phosphate binders. 2. End-stage renal disease, stable. Continuing Thursday, Thursday, Thursday hemodialysis. Fluid remov al only as tolerated with this patient. 3. Diabetic ketoacidosis, resolved. Agree with current management. Recheck base met and CBC in a.m. if the patient is still here tomorro w.
[2017-11-05] MEDS: Lisinopril 20 MG TAB PO SCH (12:28)
[2017-11-05] MEDS ORDERED: Lisinopril 20 MG TAB PO SCH (14:50)
--- NOTE | 2017-11-05 18:07 | PDOC.PN ---
- Subjective Encounter Start Date: 11/05/17 Encounter Start Time: 11:00 Subjective: pt up in bed feels better today - Objective Vital Signs & Weight: Vital Signs (12 hours) Temp Pulse Resp BP BP BP Pulse Ox 11/05/17 14:05 144/81 H 11/05/17 14:02 144/81 H 11/05/17 12:28 119/67 11/05/17 11:43 97.6 F 75 18 119/67 96 11/05/17 09:21 76 136/82 11/05/17 09:20 76 136/82 11/05/17 07:46 98.0 F 76 16 11/05/17 07:26 98.2 F 75 16 136/82 96 Weight Admit Weight 182 lb Weight 173 lb 8.061 oz Most Recent Monitor Data Heart Rate from ECG 74 NIBP 138/71 NIBP BP-Mean 103 Respiration from ECG 15 SpO2 99 I&O: 11/04/17 11/05/17 11/06/17 06:59 06:59 06:59 Intake Total 2510 500 360 Output Total 0 Balance 2510 500 360 Result Diagrams: 11/05/17 03:30 11/05/17 06:30 Additional Labs: Accuchecks 11/05/17 11/05/17 11/05/17 17:34 15:38 11:27 POC Glucose 85 132 H 149 H 11/05/17 11/05/17 11/05/17 08:24 04:54 00:10 POC Glucose 112 H 144 H 297 H 11/04/17 11/04/17 21:22 20:23 POC Glucose 401 H 387 H Phys Exam - Physical Examination HEENT: PERRLA Neck: no nodes Respiratory: no wheezing, no rales Cardiovascular: RRR, no significant murmur Gastrointestinal: soft, non-tender Musculoskeletal: no edema Neurological: non-focal Dx/Plan - Plan Pt IS 62 YRS OLD MALE 1. DKA 2. DM Type 1? 3. Anion gap metabolic acidosis 4. ESRD 5. Metabolic encephalopathy 6. HTN 7) generalized weakness Plan: pt off insulin drip, was given lantus last night and became hypoglycemic. will decrease his lantus dose to 10units for now in additional to his sliding scale. 11/04 will decrease levemir to 5units and add 10units in am. D10 discontinued. ct head is negative. dialysis per nephrology will start pt on his procardia/lisinopril and labetalol will order echo since pt is complaining of weakness PT consulted * . Review of Systems - Review of Systems Eyes: negative: Pain, Vision Change, Conjunctivae Inflammation, Eyelid Inflammation, Redness, Other ENT: negative: Ear Pain, Ear Discharge, Nose Pain, Nose Discharge, Nose Congestion, Mouth Pain, Mouth Swelling, Throat Pain, Throat Swelling, Other Musculoskeletal: negative: Neck Pain, Shoulder Pain, Arm Pain, Back Pain, Hand Pain, Leg Pain, Foot Pain, Other Skin: negative: Rash, Lesions, Thony, Bruising, Other Neurological: Weakness - Medications/Allergies Allergies/Adverse Reactions: Allergies Allergy/AdvReac Type Severity Reaction Status Date / Time No Known Allergies Allergy Verified 11/02/17 03:41 Medications: Current Medications Acetaminophen (Tylenol) 650 mg PO Q6H PRN PRN Reason: Pain Last Admin: 11/04/17 21:15 Dose: 650 mg Carvedilol (Coreg) 12.5 mg PO BID [facility] Dextrose/Water (Dextrose 50%) 25 gm IVP PRN PRN PRN Reason: HYPOGLYCEMIA PROTOCOL Last Admin: 11/03/17 03:53 Dose: 25 gm Glucagon (Glucagon) 1 mg IM PRN PRN PRN Reason: HYPOGLYCEMIA PROTOCOL Dextrose/Water (D5w) 1,000 mls @ 0 mls/hr IV INF PRN; As Directed PRN Reason: HYPOGLYCEMIA PROTOCOL Insulin Detemir 10 units/ (Miscellaneous Medication) 0.1 mls @ 0 mls/hr [place] [facility] [place] Admin: 11/05/17 09:27 Dose: 0.1 mls Insulin Detemir 5 units/ (Miscellaneous Medication) 0.05 mls @ 0 mls/hr SC HS [facility] Insulin Human Regular (Humulin R) 0 units SC .MODERATE SLIDING SC PRN; Protocol PRN Reason: MODERATE SLIDING SCALE Last Admin: 11/04/17 21:29 Dose: 10 unit Labetalol HCl (Normodyne) 100 mg PO BID [facility] Lactulose (Lactulose) 20 gm PO DAILYPRN PRN PRN Reason: Constipation Lisinopril (Zestril) 20 mg PO DAILY [facility] Last Admin: 11/05/17 12:28 Dose: Not Given Lorazepam (Ativan) 0.5 mg PO HSPRN PRN PRN Reason: Insomnia Last Admin: 11/04/17 21:16 Dose: 0.5 mg Nifedipine (Procardia Xl) 60 mg PO DAILY [facility] Ondansetron HCl (Zofran) 4 mg IVP Q6H PRN PRN Reason: Nausea/Vomiting Pantoprazole Sodium (Protonix) 40 mg PO DAILY [facility] Last Admin: 11/05/17 09:22 Dose: 40 mg Sevelamer Carbonate (Renvela) 800 mg PO TID-WM [facility] Last Admin: 11/05/17 17:14 Dose: 800 mg Sodium Chloride (Flush - Normal Saline) 10 ml IVF Q12HR [facility] Last Admin: 11/05/17 09:22 Dose: 10 ml Sodium Chloride (Flush - Normal Saline) 10 ml IVF PRN PRN PRN Reason: Saline Flush
[2017-11-05] MEDS ORDERED: Insulin Detemir 100 UNITS/ML 10 UNITS in Pre-Filled Syringe 1 EACH SC SCH (21:00)
[2017-11-05] MEDS ORDERED: Labetalol 100 MG TAB PO SCH (21:00)
[2017-11-05] MEDS: Carvedilol 6.25 MG TAB PO SCH (21:13)
[2017-11-05] MEDS: Lorazepam 0.5 MG TAB PO PRN (21:14)
[2017-11-05] MEDS: Insulin Detemir 100 UNITS/ML 5 UNITS in Pre-Filled Syringe SC SCH (21:15)
[2017-11-05] MEDS: Labetalol 100 MG TAB PO SCH (21:16)
[2017-11-06 05:14] LABS: #Eosinphils 0.1 thou/uL (0.0-0.7); #Lymphocytes 1.7 thou/uL (1.20-3.40); #Monocytes 0.5 thou/uL (0.11-0.59); #Neutrophils 4.7 thou/uL (1.40-6.50); %Basophils 0.5 % (0.0-1.0); %Eosinophils 1.5 % (0.0-10.0); %Lymphocytes 23.7 % (21.0-51.0); %Monocytes 7.1 % (0.0-10.0); %Neutrophils 67.2 % (42.0-75.0); Hemoglobin 10.6 g/dL (14.0-18.0); Mean Corpuscular HGB CONC 31.6 g/dL (32.0-36.0); Mean Corpuscular Hemoglobin 32.3 pg (27.0-31.0); Mean Platelet Volume 9.5 fL (7.4-10.4); Platelet Count 75 thou/uL (130-400); RBC Distribution Width 15.8 % (11.5-14.5); Red Blood Cell (RBC) Count 3.28 mill/uL (4.70-6.10)
[2017-11-06 05:39] LABS: Anion Gap 12 mmol/L (10-20); BUN (Urea Nitrogen) 54 mg/dL (8.4-25.7); Calc. Creatinine Clearance 16 mL/min (70-130); Calcium 7.5 mg/dL (7.8-10.44); Carbon Dioxide 28 mmol/L (23-31); Chloride 97 mmol/L (98-107); Estimated GFR-MDRD 11; Phosphorus 4.9 mg/dL (2.3-4.7); Potassium 4.2 mmol/L (3.5-5.1); Sodium 133 mmol/L (136-145)
[2017-11-06 05:44] LABS: Glucose 37 mg/dL (80-115)
[2017-11-06] MEDS ORDERED: Lisinopril 10 MG TAB PO SCH (09:00)
[2017-11-06] MEDS: Sevelamer Carbonate 800 MG TAB PO SCH ×3 (11:42→16:47)
[2017-11-06] MEDS: Insulin Detemir 100 UNITS/ML 10 UNITS in Pre-Filled Syringe 1 EACH SC SCH (11:43)
[2017-11-06] MEDS: Labetalol 100 MG TAB PO SCH ×2 (13:44→22:20)
[2017-11-06] MEDS: Lisinopril 20 MG TAB PO SCH (13:45)
[2017-11-06] MEDS: Carvedilol 6.25 MG TAB PO SCH ×2 (13:45→22:20)
[2017-11-06] MEDS: NIFEdipine XL 60 MG TAB PO SCH (13:45)
[2017-11-06] MEDS: Insulin Regular 300 UNITS/3 ML VIAL SC PRN (16:48)
[2017-11-06] MEDS ORDERED: Zolpidem Tartrate 5 MG TAB PO PRN (18:18)
[2017-11-06] MEDS: Insulin Detemir 100 UNITS/ML 5 UNITS in Pre-Filled Syringe SC SCH (22:21)
[2017-11-07 05:16] LABS: Anion Gap 10 mmol/L (10-20); BUN (Urea Nitrogen) 34 mg/dL (8.4-25.7); Calc. Creatinine Clearance 19 mL/min (70-130); Calcium 7.6 mg/dL (7.8-10.44); Carbon Dioxide 31 mmol/L (23-31); Chloride 98 mmol/L (98-107); Estimated GFR-MDRD 14; Glucose 86 mg/dL (80-115); Phosphorus 4.4 mg/dL (2.3-4.7); Potassium 4.3 mmol/L (3.5-5.1); Sodium 135 mmol/L (136-145)
[2017-11-07 05:22] LABS: #Basophils 0.1 thou/uL (0.0-0.2); #Eosinphils 0.1 thou/uL (0.0-0.7); #Lymphocytes 1.9 thou/uL (1.20-3.40); #Monocytes 0.5 thou/uL (0.11-0.59); %Eosinophils 1.9 % (0.0-10.0); %Lymphocytes 29.5 % (21.0-51.0); %Monocytes 6.8 % (0.0-10.0); %Neutrophils 60.9 % (42.0-75.0); Hemoglobin 10.3 g/dL (14.0-18.0); Mean Corpuscular Hemoglobin 32.1 pg (27.0-31.0); Mean Platelet Volume 9.8 fL (7.4-10.4); Platelet Count 74 thou/uL (130-400); RBC Distribution Width 15.5 % (11.5-14.5); White Blood Cell (WBC) Count 6.6 thou/uL (4.8-10.8)
[2017-11-07] MEDS: Labetalol 100 MG TAB PO SCH (07:47)
[2017-11-07] MEDS: Sevelamer Carbonate 800 MG TAB PO SCH ×2 (07:48→11:36)
[2017-11-07] MEDS: Lisinopril 20 MG TAB PO SCH (07:48)
[2017-11-07] MEDS: Carvedilol 6.25 MG TAB PO SCH (07:48)
[2017-11-07] MEDS: NIFEdipine XL 60 MG TAB PO SCH (07:48)
[2017-11-07 08:56] VITALS: TEMP 97.6
[2017-11-07] MEDS ORDERED: Insulin Detemir 100 UNITS/ML 5 UNITS in Pre-Filled Syringe 1 EACH SC SCH (09:00)
[2017-11-07 14:37] VITALS: BP 157/78
== END 2017-11-07 15:30 | disposition home or self-care (01) | DRG 637 ==
LOC: ERS 00:32 → CCU 02:58 → T4-A 11-03 19:56
PROVIDERS: ADMIT Internal Medicine; ATTEND Internal Medicine
PROC: 5A1D70Z Performance of Urinary Filtration, Intermittent, Less than 6 Hours Per Day (ICD-10-PCS; principal; 2017-11-02)
PROC: 5A1D70Z Performance of Urinary Filtration, Intermittent, Less than 6 Hours Per Day (ICD-10-PCS; 2017-11-04)
PROC: 5A1D70Z Performance of Urinary Filtration, Intermittent, Less than 6 Hours Per Day (ICD-10-PCS; 2017-11-06)
DX: E10.10 Type 1 diabetes mellitus with ketoacidosis without coma (principal); N18.6 End stage renal disease; G93.41 Metabolic encephalopathy; I12.0 Hypertensive chronic kidney disease with stage 5 chronic kidney disease or end stage renal disease; E10.21 Type 1 diabetes mellitus with diabetic nephropathy; E83.39 Other disorders of phosphorus metabolism; E10.22 Type 1 diabetes mellitus with diabetic chronic kidney disease; Z99.2 Dependence on renal dialysis; Z79.4 Long term (current) use of insulin; Z79.899 Other long term (current) drug therapy
CPT/HCPCS: 36415; 36416; 70450; 80048; 80053; 82010; 82140; 82330; 82803; 82805; 83690; 83735; 84100; 84484; 85025; 87040; 87340; 90935; 93005; 93306; 96360; 96365; A4216; C9113; G0257; G8978-GP-CJ; G8979-GP-CJ; G8980-GP-CJ; J1815; J7050

== ENCOUNTER 2017-11-09 21:51 | Inpatient (IN) | payer MEDICARE ==
[~2017-11-09 21:51] MED LIST: Calcium Chloride 1 GM/10 ML Abboject SYRINGE ONE; EPINEPHrine 1 MG/10 ML Abboject SYRINGE ONE; Sodium Bicarb 50 MEQ/50 ML Abboject 8.4% SYRINGE ONE
[2017-11-09] MEDS ORDERED: Atropine Sulfate 1 mg/10 ml Syringe ONE (22:33)
[2017-11-09] MEDS ORDERED: Rocuronium Bromide 50 MG/5 ML VIAL ONE (22:36)
[2017-11-09] MEDS ORDERED: Insulin Regular 300 UNITS/3 ML VIAL ONE (22:47)
[2017-11-09] MEDS ORDERED: Norepinephrine 8 MG/0.9% NS 250 ML ONE (22:48)
[2017-11-09 22:56] LABS: INR-International Normal Ratio 1.3; PTT 27.8 SEC (22.9-36.1)
[2017-11-09 22:59] LABS: Hemoglobin 10.2 g/dL (14.0-18.0); Mean Corpuscular HGB CONC 29.1 g/dL (32.0-36.0); Mean Platelet Volume 8.6 fL (7.4-10.4); Platelet Count 232 thou/uL (130-400); RBC Distribution Width 15.2 % (11.5-14.5); White Blood Cell (WBC) Count 10.1 thou/uL (4.8-10.8)
[2017-11-09 23:08] LABS: Band 5 % (5-11); Lymphocytes 9 % (21-51); MDiff Complete? YES; Macrocytosis SLIGHT = 6-15 cells (100X) (0-5/hpf); Metamyelocyte 1 % (0-0); Monocytes 3 % (0-10); Myelocyte 2 % (0-0); Neutrophil 80 % (42-75); PLT Morphology Comment Appears Adequate
--- NOTE | 2017-11-09 23:13 | RAD ---
AP VIEW CHEST: INDICATIONS: Hyperglycemic and hypotensive. FINDINGS: Pacer pads overlie the left chest wall. There is a gastric catheter projecting beyond the left hemid iaphragm, in the region of the gastric cardia. Linear opacity is seen within the left lower lobe and right mid lung. No confluent air space opacities, pleural effusion, or pneumothorax is evident. IMPRESSION: 1. Linear opacities involving the right mid lung and left lower lobe, stable from 1999, likely refle cting scarring. 2. No acute cardiopulmonary abnormality demonstrated. POS: MELO
[2017-11-09 23:14] LABS: Troponin I 0.048 ng/mL (< 0.028)
[2017-11-09 23:20] LABS: CKMB 6.7 ng/mL (0-6.6)
[2017-11-09 23:34] LABS: Albumin 2.7 g/dL (3.4-4.8)
[2017-11-09 23:35] LABS: Calcium 7.8 mg/dL (7.8-10.44); Chloride 85 mmol/L (98-107); Sodium 122 mmol/L (136-145)
[2017-11-09 23:36] LABS: Globulin 2.3 g/dL (2.4-3.5)
[2017-11-09 23:38] LABS: Bilirubin, Total 0.4 mg/dL (0.2-1.2)
[2017-11-09 23:39] LABS: Alkaline Phosphatase 405 U/L (40-150); Calc. Creatinine Clearance 0 mL/min (70-130); Estimated GFR-MDRD 7
[2017-11-09 23:40] LABS: BUN (Urea Nitrogen) 102 mg/dL (8.4-25.7)
[2017-11-09] MEDS ORDERED: Fentanyl 100 MCG/2 ML VIAL ONE (23:40)
[2017-11-09 23:41] LABS: AST (SGOT) 61 U/L (5-34)
[2017-11-09 23:42] LABS: ALT (SGPT) 74 U/L (8-55); CK (CPK) 102 U/L (30-200)
[2017-11-09] MEDS ORDERED: fentaNYL Citrate/PF 2,000 MCG in Sodium Chloride 0.9% 60 ML IV SCH (23:42)
--- NOTE | 2017-11-09 23:48 | RAD ---
AP VIEW CHEST: INDICATIONS: Emergency exam. COMPARISON: Prior exam performed earlier, at 10:43 p.m. FINDINGS: The patient has been intervally intubated. The tip of the ET tube is seen at the level of the thorac ic inlet. The gastric catheter has been withdrawn and now projects in the region of the left lower l obe of the lung. Pacer pads overly the left chest wall. Mild cardiomegaly is stable. No confluent air space opacity or pleural effusion is evident. There is stable scarring within both lung bases. No acute osseous abnormality is evident. IMPRESSION: 1. Interval intubation. 2. Gastric catheter has been repositioned and now projects in the region of the left lower lobe. Re commend retraction and replacement. Findings were called to Dr. Duong at 11:36 p.m. on 11/09/2017. CODE CR POS: SJ
[2017-11-09 23:55] LABS: Carbon Dioxide Less than 8 mmol/L (23-31); Potassium 9.1 mmol/L (3.5-5.1)
[2017-11-10] MEDS ORDERED: Fentanyl 100 MCG/2 ML VIAL ONE (00:10)
[2017-11-10 00:24] LABS: Glucose 1280 mg/dL (80-115)
[2017-11-10] MEDS ORDERED: Insulin Regular 100 units/100 ml in NS IVPB SCH (00:30)
[2017-11-10] MEDS ORDERED: Dextrose 5 %-0.45 % NaCl 1,000 ML IV PRN ×2 (01:22→09:00)
[2017-11-10] MEDS ORDERED: Sodium Chloride 0.9% 1,000 ML IV PRN ×4 (01:22)
[2017-11-10] MEDS ORDERED: NS 0.9% w/ 20 MEQ KCL 1,000 ML IV PRN (01:22)
[2017-11-10] MEDS ORDERED: Ondansetron HCl/PF 4 MG/2 ML Vial IVP PRN (01:22)
[2017-11-10] MEDS ORDERED: D5 1/2 NS w/20 mEq KCL 1,000 ML IV PRN (01:22)
[2017-11-10] MEDS ORDERED: Ventilator Sedation Protocol 1 EACH FS ONE (01:22)
[2017-11-10] MEDS ORDERED: CCU Electrolyte Replacement 1 EACH IVPB ONE (01:22)
[2017-11-10] MEDS ORDERED: Ventilator Sedation Protocol 1 EACH FS SCH (01:22)
[2017-11-10] MEDS ORDERED: Morphine 4 MG/ML VIAL SLOW IVP PRN (01:29)
[2017-11-10] MEDS ORDERED: Propofol 1,000 MG/100 ML VIAL IV PRN (01:29)
[2017-11-10] MEDS ORDERED: Potassium Chloride 40 MEQ in Sodium Chloride 0.9% 250 ML 250 ML IVPB PRN (01:29)
[2017-11-10] MEDS ORDERED: DISCONTINUE PREVIOUS NARCOTIC PAIN MEDICATIONS AND BENZODIAZEPINES FS SCH ×2 (01:29)
[2017-11-10] MEDS ORDERED: Potassium Chloride 40 MEQ in Premix Bag 1 BAG IVPB PRN (01:29)
[2017-11-10] MEDS ORDERED: Magnesium 2 GM/NS 0.9% 100 ML 2 GM in Premix Bag 1 BAG IVPB PRN (01:29)
[2017-11-10] MEDS ORDERED: fentaNYL Citrate/PF 2,000 MCG in Sodium Chloride 0.9% 60 ML IV SCH (01:29)
[2017-11-10] MEDS ORDERED: Magnesium Oxide 400 MG TAB PO PRN ×2 (01:29)
[2017-11-10] MEDS ORDERED: Potassium Chloride 20 MEQ TAB PO PRN ×2 (01:29)
[2017-11-10] MEDS ORDERED: CCU ELECTROLYTE REPLACEMENT PROTOCOL FS PRN (01:29)
[2017-11-10] MEDS ORDERED: Fentanyl BOLUS 250 ML IVPB PRN ×2 (01:29)
[2017-11-10] MEDS ORDERED: Propofol BOLUS 1,000 MG/100 ML VIAL IV PRN ×2 (01:29)
[2017-11-10] MEDS ORDERED: Lorazepam 2 MG/ML VIAL SLOW IVP PRN (01:29)
[2017-11-10] MEDS ORDERED: Potassium Phosphate 9 MMOL in Sodium Chloride 0.9% 100 ML IVPB PRN (01:29)
[2017-11-10] MEDS ORDERED: Potassium Phosphate 15 MMOL in Sodium Chloride 0.9% 250 ML 250 ML IV PRN (01:29)
[2017-11-10] MEDS ORDERED: Potassium Phosphate 12 MMOL in Sodium Chloride 0.9% 250 ML 250 ML IV PRN (01:29)
[2017-11-10 01:37] LABS: pH, Arterial 7.15 (7.35-7.45)
[2017-11-10 01:38] LABS: Base Excess (BEa) 16.5 mEq/L (0 (+/-) 2.5); CO2 Tension 31.8 mmHg (35.0-45.0); Hematocrit-ABG 39.1 % (42.0-52.0); Hemoglobin (Hb) 9.7 g/dL (14.0-18.0); O2 Tension (PaO2) 173.2 mmHg (80.0-100.0)
[2017-11-10 01:39] LABS: Analyzer IN Cardio ER; Calcium, Ionized 1.1 mmol/L (1.12-1.30); Puncture Site LRA
[2017-11-10 02:59] LABS: Anion Gap 31 mmol/L (10-20); BUN (Urea Nitrogen) 93 mg/dL (8.4-25.7); Calc. Creatinine Clearance 0 mL/min (70-130); Calcium 7.7 mg/dL (7.8-10.44); Carbon Dioxide 9 mmol/L (23-31); Chloride 91 mmol/L (98-107); Estimated GFR-MDRD 8; Glucose 1047 mg/dL (80-115); Potassium 6.7 mmol/L (3.5-5.1); Sodium 124 mmol/L (136-145)
[2017-11-10 04:45] LABS: Glucose 738 mg/dL (80-115)
[2017-11-10 06:10] LABS: Anion Gap 21 mmol/L (10-20); BUN (Urea Nitrogen) 48 mg/dL (8.4-25.7); Calc. Creatinine Clearance 19 mL/min (70-130); Calcium 7.6 mg/dL (7.8-10.44); Carbon Dioxide 21 mmol/L (23-31); Chloride 96 mmol/L (98-107); Estimated GFR-MDRD 15; Glucose 527 mg/dL (80-115); Potassium 4.4 mmol/L (3.5-5.1); Sodium 134 mmol/L (136-145)
--- NOTE | 2017-11-10 06:35 | HP ---
PRIMARY CARE PHYSICIAN: Unknown. PRIMARY DIE BAKER: Dr. Juarez DATE OF ADMISSION: 11/09/2017 TIME OF SERVICE 2340. CHIEF COMPLAINT: Altered mental status. HISTORY OF PRESENT ILLNESS: Mr. Hooks is a 62-year-old gentleman admitted here recently from 2017 to 11/07/2017 for what sounds like DKA, possible doo-DH-kcnkerq elevation myocardial infarction. He was discharged on 11/07/2017. The patient was found today at home not acting like himself and having some breathing issues so EMS w as activated and he was brought to the emergency department for evaluation. Here he was initially awake, but quickly became obtunded and developed an agonal breathing type situa tion and was subsequently intubated. Blood sugar on lab draw was found to be 1200. He started IV fl uids and insulin drip and we were subsequently called for admission. Labs showed a troponin I of 0.0 48, which is improved from his recent stay. The patient was transferred to the ICU on the second time. He is still sedated on the ventilator. PAST MEDICAL HISTORY: 1. Diabetes mellitus type 1. 2. End-stage renal disease on hemodialysis, unknown schedule. 3. Hypertension. PAST SURGICAL HISTORY: 1. AV fistula creation to the arm. 2. Tonsillectomy. HOME MEDICATIONS: 1. Tarceva 10 units subcutaneously q.a.m. 2. Regular sliding scale insulin. 3. Melatonin 3 mg p.o. at bedtime. 4. Renvela 800 mg p.o. t.i.d. a.c. 5. Coreg 12.5 mg p.o. b.i.d. 6. Labetalol 200 mg p.o. b.i.d. 7. Lisinopril 40 mg p.o. daily. 8. Nifedipine 60 mg p.o. b.i.d. ALLERGIES: NKDA. FAMILY HISTORY: Not obtainable. SOCIAL HISTORY: Not obtainable. REVIEW OF SYSTEMS: Not obtainable due to intubated status. PHYSICAL EXAMINATION: VITAL SIGNS: Upon arrival to the floor, temperature was initially 94.1. The patient was placed in a Fernando Hugger, it is up to 97.6. Current pulse 71, blood pressure is in the 108/55, respiratory rate 14, satting 100% on ventilator. GENERAL: He is sedated and orally intubated, does not appear to be in acute distress. HEENT: Normocephalic, atraumatic. Pupils are 2-3 mm and somewhat reactive bilaterally, mucous membr anes are moist. No visible lesion or thrush. NECK: Supple. There is no lymphadenopathy, JVD or thyromegaly. He had normal carotid upstrokes. I did not appreciate a bruit. LUNGS: Clear. The patient has good air movement bilaterally, no wheezes, no rales or rhonchi. CARDIOVASCULAR: Slight tachycardic, irregular. Normal S1, S2. No S3, S4. No audible murmurs. ABDOMEN: Soft, nontender, nondistended with good bowel sounds. EXTREMITIES: Show no cyanosis or clubbing. He had 1+ edema of the bilateral lower extremities. Per ipheral pulses are 1+ in all 4 extremities. SKIN: Otherwise warm, moist and well perfused. He has no rash or lesions. MUSCULOSKELETAL: The patient has a normal inspection. Large joints appear normal, without any infla mmation or palpable effusions. NEUROLOGIC: Not testable. He does withdraw from pain appropriately. He has gag reflex and pupillar y reflex intact. LABORATORY DATA: Sodium 122, potassium initially 9.1, chloride 85, bicarbonate less than 8, anion ga p was unable to be calculated. BUN 102, creatinine 7.73, glucose 1280, calcium 7.8. Liver functions ; AST elevated at 61, ALT 74, alkaline phosphatase of 405 and CK of 102. CK-MB of 6.0 with no prior, troponin I of 0.048, which improved and ammonia was 33 without a prior Albumin is 2.7. TSH 7.0047. Beta hydroxybutyrate 6.93. ABG showed a pH of 7.15, pCO2 of 31.8, pO2 of 173.2, oxygen saturation of 99%. Coags show an INR of 1.3. His CBC showed a white count 10.1, hemoglobin 10.2, hematocrit 35.1 , platelet count is 232,000, 80% granulocytes, 5% bands, 9% lymphocytes. RADIOGRAPHIC STUDIES: He had a brain CT that showed no acute intracranial abnormalities, and a chest x-ray pre-intubation showed chronic changes consistent with scarring and post-intubation showed left lower lobe NG tube placement and recommended removing. ASSESSMENT AND PLAN: 1. Diabetic ketoacidosis. Unable to get a history. He presented with this last time. We will put him on DKA protocol. He is on hemodialysis. Potassium is 9.1. He needs dialysis now. Dr. Juarez was contacted by the emergency room team and dialysis nurse is already got the machine in his room in the ICU. 2. Acute hypoxic respiratory failure: The patient required intubation. Doing well on the ventilato r. 3. Diabetes mellitus type 1, as above. 4. Hypertension, essential. Blood pressure stable, slightly low on propofol. May need to switch to Precedex. 5. Elevated BNP: The patient is a volume overload, has not had dialysis likely since discharge. We will recheck at a later date. Greater than 45 minutes critical care were spent.
[2017-11-10] MEDS: NS 0.9% w/ 20 MEQ KCL 1,000 ML IV PRN ×2 (06:43→06:50)
[2017-11-10 07:25] LABS: Actual Bicarbonate (HCO3a) 27.4 mEq/L (22-26); Base Excess (BEa) 2.9 mEq/L (0 (+/-) 2.5); CO2 Tension 41.7 mmHg (35.0-45.0); Hematocrit-ABG 33.4 % (42.0-52.0); Hemoglobin (Hb) 9.4 g/dL (14.0-18.0); O2 Tension (PaO2) 72.8 mmHg (80.0-100.0); pH, Arterial 7.44 (7.35-7.45)
[2017-11-10 07:26] LABS: ALV-art Gradient 160.275 (0-20); Puncture Site LBA
--- NOTE | 2017-11-10 08:46 | CT ---
PRELIMINARY REPORT/[facility]/EMERGENTY AFTER-HOURS PROCEDURE CT Head Without Intravenous Contrast CLINICAL HISTORY: 62 years old, male; Signs and symptoms; Altered mental status/memory loss; Confusion or disorientatio n; Patient HX: AMS TECHNIQUE: Axial computed tomography images of the head/brain without intravenous contrast. COMPARISON: No relevant prior studies available. FINDINGS: The study is limited due to head angulation within the CT gantry and streak artifact. Brain: Mild volume loss No hemorrhage. No significant white matter disease. No edema. Ventricles: Unremarkable. No ventriculomegaly. Bones/joints: Unremarkable. No acute fracture. Soft tissues: Unremarkable. Sinuses: Unremarkable as visualized. No acute sinusitis. Mastoid air cells: Unremarkable as visualized. No mastoid effusion. IMPRESSION: No definite acute intracranial hemorrhage noted Thank you for allowing us to participate in the care of your patient. Dictated and Authenticated by: Daljit Green MD 11/10/2017 12:38 AM Central Time ([place] & [place]) FINAL REPORT CT HEAD NONCONTRAST PERFORMED ON AN EMERGENCY BASIS: Date: 11/10/17 Time: 0023 hours HISTORY: Altered mental status. COMPARISON: 11/02/17. FINDINGS: Findings agree with the preliminary report by Mary. No acute intracranial abnormalities are demonstra domingo on noncontrast CT head. POS: OFF
[2017-11-10] MEDS ORDERED: Famotidine/PF 20 mg/2ml Vial SLOW IVP SCH (09:00)
--- NOTE | 2017-11-10 10:06 | CON ---
DATE OF CONSULTATION: 11/10/2017 SERVICE: Pulmonary Medicine. REASON FOR CONSULTATION: Respiratory failure. HISTORY OF PRESENT ILLNESS: The patient is a 62-year-old white male with past medical history signif icant for type 1 diabetes mellitus and end-stage renal disease. He was recently in the hospital for DKA exacerbation. He is discharged on . It is not clear whether or not he took his medications, but apparently he may have missed dialysis. Either way, he was found down in his house. He was bro ught to the Emergency Department and rapidly developed increasing respiratory failure. He became ago nal. As such, he was intubated. Laboratories looked fairly terrible. The patient cannot provide me any additional elements of the history. PAST MEDICAL HISTORY: 1. Type 1 diabetes mellitus. 2. End-stage renal disease. 3. Hypertension. PAST SURGICAL HISTORY: 1. Right arm AV fistula. 2. Tonsillectomy. MEDICATIONS: List of his inpatient medications was reviewed. A couple of small updates were made. ALLERGIES: No known drug allergies. FAMILY HISTORY: Cannot obtain. SOCIAL HISTORY: Cannot obtain. REVIEW OF SYSTEMS: Cannot obtain secondary to metabolic encephalopathy. PHYSICAL EXAMINATION: VITAL SIGNS: Afebrile, pulse 63, blood pressure 111/58, respirations 14, saturation 100% on 21% FiO2 and a PEEP of 5. GENERAL: The patient is intubated. He is currently sedated, but was previously encephalopathic. HEENT: Normocephalic, atraumatic. Sclerae are white, conjunctivae pink. Oral and nasal mucosa is m oist and without lesions. Pupils are equal, round, and reactive, although sluggish. HEART: Normal rate and regular. LUNGS: Decent air entry. I do not appreciate wheezing, rhonchi or crackles. HEART: Normal rate, regular. ABDOMEN: Soft to touch and firm. Bowel sounds are hypoactive. I wonder if there is possibly some s hifting dullness. GENITOURINARY: Sepulveda catheter in place. NEUROLOGIC: Grossly nonfocal. His pupils are equal, round, and reactive. He is starting to over br eathe the ventilator a touch. I saw him spontaneously moving his upper extremities. He does not mov e his lower extremities at this time to noxious stimuli. LABORATORY DATA: WBC 10.1, hemoglobin 10.2, platelets 232,000. Neutrophils are 80% with 5% bands. INR 1.3. PH 7.44, pCO2 41, pO2 72 on FiO2 of 40%. Creatinine has improved to 4.15, BUN 48 (from 93) , bicarbonate 21, chloride 96, sodium 134. All of these things are moving to the normal range. Pota ssium has drastically improved to 4.4. TSH 7.0047. Ammonia 33. AST and ALT are minimally elevated. BNP 2573. Glucose was originally 1280, it is down trending to 500. Beta hydroxybutyric acid is 2. 18 and was previously elevated. ASSESSMENT: 1. Acute hypoxic respiratory failure. 2. Metabolic encephalopathy. 3. Type 1 diabetes mellitus. 4. Elevated transaminases. 5. End-stage renal disease. 6. Medical noncompliance. PLAN: I will continue the insulin drip. IV fluids will be interrupted as the patient has excessive swelling in the bilateral upper and lower extremities and is currently anuric. We will discontinue a ll sedation. We wake him up and if he meets criteria, extubation will be considered now that his aci dosis has resolved. Pulmonary or Critical Care will continue to follow and he will certainly need to remain in the ICU until we have better control of his volume. CRITICAL CARE TIME: 45 minutes.
[2017-11-10] MEDS: Ampicillin/Sulbactam 3 GM in Sodium Chloride 0.9% 100 ML IVPB SCH (10:28)
[2017-11-10] MEDS: Famotidine 40 MG/4 ML VIAL SLOW IVP SCH (10:44)
--- NOTE | 2017-11-10 11:50 | PRG ---
DATE OF SERVICE: 11/10/2017 RENAL MEDICINE SUBJECTIVE: Mr. Hooks is a 62-year-old white male who was readmitted due to mental status change. He was also noted to have severely elevated blood sugar as well as severe hyperkalemia. Due to potas sium between 8 and 9, he underwent emergent hemodialysis. He was also started on an IV insulin drip. The patient was also noted to be hypotensive and for that reason received several liters of fluid. In addition, he is currently on pressor support. We are s eeing this patient for his maintenance hemodialysis. This morning, I evaluated the patient. There i s no indication for any emergent hemodialysis. I will resume back his Thursday, Thursday, Thursday dial ysis regimen. PHYSICAL EXAMINATION: VITAL SIGNS: Blood pressure 127/63, heart rate 82, respiratory rate 13, pulse ox 100%. GENERAL: Sedated and intubated on ventilator support. SKIN: Adequate turgor. HEENT: Pinkish conjunctivae, anicteric sclerae. NECK: No neck mass, no carotid bruits, no JVD. CHEST: No deformities. LUNGS: Clear breath sounds, no wheezing, no crackles. HEART: Normal sinus rhythm. No murmurs, no gallops, no rubs. ABDOMEN: Globular, soft, nontender. No masses. EXTREMITIES: No edema, no deformities. MEDICATIONS: Medications of 11/10/2017 reviewed. LABORATORY DATA: Laboratories of 11/09/2017; white count 10.1, hemoglobin 10.2. On 11/10/2017, sodi um 134, potassium 4.4, chloride 96, carbon dioxide 21, BUN 21, creatinine 4.15, glucose 527, calcium is 7.6. On 11/09/2017, potassium was 9.1. IMAGING DATA: 1. Chest x-ray of 11/11/2017, no CHF. 2. CT scan of the brain, no acute intracranial abnormality. ASSESSMENT AND PLAN: 1. Mental status change - most likely secondary to metabolic encephalopathy. 2. Third AV block - as per discussion with the ER physician, the third AV block may be related to se lyudmila hyperkalemia. He did receive calcium gluconate at that time. 3. Hyperkalemia, resolved with dialysis. 4. End-stage renal disease, stable. We will continue current Thursday, Thursday, Thursday hemodialysis regimen. Fluid removal only as tolerated. 5. Hypotension, status post volume repletion. Currently on IV pressors. Overall, prognosis remains guarded.
[2017-11-10 14:01] LABS: Anion Gap 19 mmol/L (10-20); BUN (Urea Nitrogen) 41 mg/dL (8.4-25.7); Calc. Creatinine Clearance 20 mL/min (70-130); Calcium 7.5 mg/dL (7.8-10.44); Carbon Dioxide 26 mmol/L (23-31); Chloride 97 mmol/L (98-107); Estimated GFR-MDRD 16; Glucose 246 mg/dL (80-115); Magnesium 2.2 mg/dL (1.6-2.6); Phosphorus 5.2 mg/dL (2.3-4.7); Potassium 4.9 mmol/L (3.5-5.1); Sodium 137 mmol/L (136-145)
[2017-11-10] MEDS ORDERED: Dextrose 50% Abboject 50 ML SYRINGE SLOW IVP PRN (17:05)
[2017-11-10] MEDS ORDERED: Dextrose 5% in Water 1,000 ML IV PRN (17:05)
[2017-11-10] MEDS ORDERED: HumaLOG 300 UNITS/3 ML VIAL SC PRN (17:05)
--- NOTE | 2017-11-10 17:11 | PDOC.PN ---
- Subjective Encounter Start Date: 11/10/17 Encounter Start Time: 16:15 Subjective: f/u for severe DKA, resp failure [facility] and hypotensive -: requiring Levophed. Sedation turned off and pt awake briefly per nursing. - Objective Resuscitation Status: Resuscitation Status FULL:Full Resuscitation MAR Reviewed: Yes Vital Signs & Weight: Vital Signs (12 hours) Temp Pulse Resp BP Pulse Ox 11/10/17 14:50 64 129/64 11/10/17 12:14 65 127/61 11/10/17 12:00 98.3 F 11 L 11/10/17 10:00 12 11/10/17 07:33 98.2 F 63 16 100 11/10/17 07:00 98.2 F 11/10/17 06:55 63 128/63 Weight Admit Weight 159 lb Weight 159 lb 2.78 oz Most Recent Monitor Data Heart Rate from ECG 62 NIBP 115/59 NIBP BP-Mean 65 Respiration from ECG 14 SpO2 100 I&O: 11/09/17 11/10/17 11/11/17 06:59 06:59 06:59 Intake Total 2217.3 850.3 Output Total 0 0 Balance 2217.3 850.3 Result Diagrams: 11/09/17 22:32 11/10/17 13:31 Additional Labs: Accuchecks 11/10/17 11/10/17 11/10/17 16:22 15:00 13:25 POC Glucose 144 H 204 H 227 H 11/10/17 11/10/17 11/10/17 11:53 10:52 09:55 POC Glucose 251 H 272 H 303 H 11/10/17 11/10/17 08:51 07:57 POC Glucose 318 H 341 H Laboratory Tests 11/07/17 11/09/17 11/10/17 03:50 22:32 02:33 Hgb 10.3 L Carbon Dioxide Less than 8 L* 9 L* Creatinine 7.73 H 7.29 H Phosphorus Magnesium B-Hydroxybutyrate 11/10/17 11/10/17 11/10/17 02:33 05:13 05:13 Hgb Carbon Dioxide 21 L Creatinine 4.15 H Phosphorus Magnesium B-Hydroxybutyrate 6.93 H 2.18 H 11/10/17 13:31 Hgb Carbon Dioxide Creatinine Phosphorus 5.2 H Magnesium 2.2 B-Hydroxybutyrate Radiology Reviewed by me: Yes (CT brain - no acute process) EKG Reviewed by me: Yes (Tele - SR in 80's) Phys Exam - Physical Examination sedate on mech ventilation, ETT in place HEENT: moist MMs, sclera anicteric, oral pharynx no lesions Neck: no nodes, no JVD, supple Respiratory: no wheezing, no rales, no rhonchi, clear to auscultation bilateral Cardiovascular: RRR, no significant murmur, no rub, gallop Gastrointestinal: soft, non-tender, no distention, positive bowel sounds UE/LE edema noted Musculoskeletal: pulses present, edema present lethargic off sedation, opens eyes briefly to name Skin: no rash, normal turgor, cap refill <2 seconds Dx/Plan (1) Acute respiratory failure with hypoxia Code(s): J96.01 - ACUTE RESPIRATORY FAILURE WITH HYPOXIA Status: Acute Comment: Continue SIMV mech ventilation, wean as clinically tolerated and meeting criteria (2) DKA (diabetic ketoacidosis) Code(s): E13.10 - OTH DIABETES MELLITUS WITH KETOACIDOSIS WITHOUT COMA Status : Acute Qualifiers: Diabetes mellitus type: type 1 Comment: Continue current insulin gtt and wean as clinically tolerated, ISS to initiate when off insulin gtt, accucheck q2h (3) Toxic metabolic encephalopathy Code(s): G92 - TOXIC ENCEPHALOPATHY Status: Acute Comment: Multifactorial given profound acidosis, DKA and multiple metabolic abnormalities, CT brain showed no acute process, monitor mental status (4) ESRD (end stage renal disease) on dialysis Code(s): N18.6 - END STAGE RENAL DISEASE; Z99.2 - DEPENDENCE ON RENAL DIALYSIS Status: Chronic Comment: HD per Renal service, completed session today with net 1.4L removed - Plan continue antibiotics, PT/OT, manager social work, respiratory therapy, DVT proph w/ SCDs Continue aggressive pulmonary support -: Wean SIMV as clinically indicated -: D/C sedation -: Continue Insulin gtt and transition to ISS -: Continue Unasyn prophylactically * Wean Levophed gtt as BP tolerates * AM lab: CMP, CBC * PCXR in am
[2017-11-11] MEDS: HumaLOG 300 UNITS/3 ML VIAL SC PRN ×3 (01:30→16:16)
[2017-11-11 04:56] LABS: Magnesium 1.7 mg/dL (1.6-2.6); Phosphorus 5.3 mg/dL (2.3-4.7)
[2017-11-11 04:58] LABS: Anion Gap 16 mmol/L (10-20); BUN (Urea Nitrogen) 42 mg/dL (8.4-25.7); Calc. Creatinine Clearance 17 mL/min (70-130); Calcium 7.4 mg/dL (7.8-10.44); Carbon Dioxide 25 mmol/L (23-31); Chloride 99 mmol/L (98-107); Estimated GFR-MDRD 13; Glucose 154 mg/dL (80-115); Potassium 4.8 mmol/L (3.5-5.1); Sodium 135 mmol/L (136-145)
[2017-11-11 05:18] LABS: Band 2 % (5-11); Eosinophils 1 % (0-10); Hemoglobin 10.5 g/dL (14.0-18.0); Lymphocytes 20 % (21-51); MDiff Complete? YES; Mean Corpuscular HGB CONC 31.7 g/dL (32.0-36.0); Mean Platelet Volume 7.8 fL (7.4-10.4); Monocytes 17 % (0-10); Neutrophil 60 % (42-75); Platelet Count 188 thou/uL (130-400); RBC Distribution Width 15.7 % (11.5-14.5); Red Blood Cell (RBC) Count 3.28 mill/uL (4.70-6.10); White Blood Cell (WBC) Count 9.6 thou/uL (4.8-10.8)
--- NOTE | 2017-11-11 08:49 | PRG ---
DATE OF SERVICE: 11/10/2017 SUBJECTIVE: Mr. Hooks is a 62-year-old white male who was admitted for an acute respiratory failure , severe hyperkalemia, and hyperglycemia. He was started on an insulin drip. He has undergone emerg ent hemodialysis. He is still intubated today. I am currently dialyzing the patient and I am at the bedside supervising his dialysis. The plan is to extubate him and trying to max out fluid removal, so he could be extubated appropriately. PHYSICAL EXAMINATION: VITAL SIGNS: Blood pressure is 118/66, heart rate 68, respiratory rate 14, temperature 98.9, pulse o x 100%. GENERAL: He is awake, intubated on ventilator support. SKIN: Adequate turgor. HEENT: Pinkish conjunctivae. Anicteric sclerae. NECK: No neck mass, no carotid bruits, no JVD. CHEST: No deformities. LUNGS: Decreased breath sounds, no wheezing, no crackles. HEART: Normal sinus rhythm. No murmurs, no gallops, no rubs. ABDOMEN: Globular, soft, nontender, no masses. EXTREMITIES: No edema, no deformities. MEDICATIONS: Medications of 11/11/2017 reviewed. LABORATORY DATA: Laboratories of 11/11/2017; white count 9.6, hemoglobin 10.5. Sodium 135, potassiu m 4.8, chloride 99, carbon dioxide 25, BUN 42, creatinine 4.66, glucose 154, calcium 7.4, phosphorus is 5.3. ASSESSMENT AND PLAN: 1. Severe hyperkalemia, resolved. Continuing dialytic intervention. 2. End-stage renal disease. We will continue current maintenance hemodialysis of Thursday, Thursday, and Thursday. Fluid removal as tolerated. We are challenging this patient. No heparin use for the m oment. 3. Acute respiratory failure - patient intubated. Plan is for extubation. Pulmonary is following. 4. Diabetic ketoacidosis - much improved sugar. 5. Borderline anemia. Start Epogen 7500 units subcu every week. 6. Recheck basic metabolic panel and CBC in a.m.
[2017-11-11] MEDS ORDERED: Epoetin (ESRD) 20,000 UNITS/ML SC SCH (09:00)
[2017-11-11] MEDS ORDERED: Dextrose 5 %-0.45 % NaCl 1,000 ML IV PRN (09:03)
--- NOTE | 2017-11-11 09:13 | PRG ---
DATE OF SERVICE: 11/11/2017 SERVICE: Pulmonary Medicine. INTERVAL HISTORY: The patient is doing great from a respiratory standpoint. He denies any chest pain, nausea, vomiting, shortness of breath, fevers or chills. He is awake on mechanical ventilation. He is on dialysis currently. They are pulling off 5 liters as a goal. He is actually tolerating this fairly well for the time being. PHYSICAL EXAMINATION: VITAL SIGNS: Afebrile, pulse 68, blood pressure 115/66, respirations 10, saturation 100% on 21% FiO2. GENERAL APPEARANCE: The patient is awake, alert, no apparent distress. He is on mechanical ventilation and can speak. HEENT: Normocephalic, atraumatic. Sclerae are white, conjunctivae pink. Oral and nasal mucosa is moist without lesions. LUNGS: Decent air entry bilaterally. There is no prolonged expiratory phase. The crackles are gone. HEART: Normal rate, regular. ABDOMEN: Soft, nontender, nondistended. Bowel sounds are positive. MUSCULOSKELETAL: No cyanosis or clubbing. There 1-2+ pitting throughout. GENITOURINARY: No Sepulveda. NEUROLOGIC: Grossly nonfocal. LABORATORY DATA: WBC 9.6, hemoglobin 10.5, and platelets 188,000. Band count is 2%. The neutrophil count is improving dramatically. Creatinine 4.66 and down trending. BUN 42 and roughly stable. Basic metabolic profile is unremarkable with an anion gap thatis now down to 16. Bicarbonate falls within the normal limits. Magnesium is a touch low, but phosphorus is little elevated. ASSESSMENT: 1. Acute hypoxic respiratory failure. 2. Metabolic encephalopathy. 3. Type 1 diabetes mellitus. 4. Elevated transaminases. 5. End-stage renal disease. 6. Medical noncompliance. PLAN: I will make certain the patient has long acting subcu insulin ordered as he is a type 1 diabetic. I will give him a spontaneous breathing trial. If he meets criteria, extubation will be performed. I will likely wait for dialysis to be completed before we make this attempt. Pulmonary or Critical Care will continue to follow for the time being, but by this afternoon, if he is stable off mechanical ventilation, he can be considered for transition to the floor. Critical care time: 30 minutes. [facility]
[2017-11-11] MEDS ORDERED: Insulin Detemir 100 UNITS/ML 5 UNITS in Pre-Filled Syringe 1 EACH SC SCH (09:15)
[2017-11-11] MEDS: Ampicillin/Sulbactam 3 GM in Sodium Chloride 0.9% 100 ML IVPB SCH (11:19)
[2017-11-11 11:54] LABS: Base Excess-Venous -22.7 mmol/L (0 (+/- 2.5)); Bicarbonate (HCO3v) 7.5 mmol/L (1.0-85.0); CO2 Tension (PvCO2) 30.8 mmHg (41.0-51.0); Calcium, Ionized 0.92 mmol/L (1.12-1.32); Hemoglobin - Calc 11.7 g/dL (12.0-18.0); Potassium 8.3 mmol/L (3.4-4.7); T. Carbon Dioxide 8.5 mmol/L (1.0-85.0); pH (Venous) 6.996 (7.35-7.45); vO2 Saturation-calc 91.1 % (94-98)
[2017-11-11] MEDS: Famotidine 40 MG/4 ML VIAL SLOW IVP SCH (11:55)
[2017-11-11 12:00] LABS: Glucose Greater than 700.0 mg/dL (70-105)
--- NOTE | 2017-11-11 14:48 | RAD ---
FRONTAL RADIOGRAPH CHEST: 11/11/2017 HISTORY: Re-evaluate chest following intubation. COMPARISON: 11/09/2017 FINDINGS: There is a nonspecific, somewhat linear/oval density within the mid right lung zone, similar when com pared to studies dating back to 08/05/2010. Endotracheal tube and nasogastric tube in proper position. There are linear densities overlying the lateral aspect of the mid left lung zone, extending into the inferolateral aspect of the left base. This is felt to most likely represent artifact on the basis of skin folds. Pneumothorax is a much less likely possibility. If clinically warranted, repeat imag ing is suggested. IMPRESSION: 1. Stable lines and tubes. 2. Linear densities overly the lateral aspect of the mid left lung zone, extending into the left alexander g base/costophrenic angle, as described above. Artifact is favored. In order to exclude pneumothora x, however, repeat imaging will be performed and an addendum will be placed on this report. CODE T POS: [facility]
--- NOTE | 2017-11-11 16:59 | PDOC.PN ---
- Subjective Encounter Start Date: 11/11/17 Encounter Start Time: 14:35 Subjective: f/u for resp failure, DKA extubated today. Off insulin gtt on ISS. Received -: HD today without difficulty. - Objective Resuscitation Status: Resuscitation Status FULL:Full Resuscitation MAR Reviewed: Yes Vital Signs & Weight: Vital Signs (12 hours) Temp Pulse Resp BP Pulse Ox 11/11/17 16:00 97.7 F 100 11/11/17 14:39 75 17 99 11/11/17 14:00 16 11/11/17 12:00 16 11/11/17 10:20 72 102/57 L 11/11/17 10:00 15 11/11/17 08:00 13 11/11/17 07:50 70 118/66 11/11/17 07:35 98.9 F 68 14 100 11/11/17 07:00 98.9 F 11/11/17 06:00 11 L Weight Admit Weight 159 lb Weight 159 lb 2.78 oz Most Recent Monitor Data Heart Rate from ECG 76 NIBP 88/43 NIBP BP-Mean 53 Respiration from ECG 8 SpO2 100 I&O: 11/10/17 11/11/17 11/12/17 06:59 06:59 06:59 Intake Total 2217.3 2114.3 240 Output Total 0 0 0 Balance 2217.3 2114.3 240 Result Diagrams: 11/11/17 04:24 11/11/17 04:24 Additional Labs: Accuchecks 11/11/17 11/11/17 11/11/17 16:15 14:11 10:43 POC Glucose 245 H 213 H 120 H 11/11/17 11/11/17 11/11/17 09:00 06:26 04:15 POC Glucose 113 H 148 H 141 H 11/11/17 11/11/17 11/10/17 01:19 00:09 23:23 POC Glucose 221 H 286 H 281 H 11/10/17 11/10/17 11/10/17 22:15 20:03 18:09 POC Glucose 254 H 177 H 157 H 11/10/17 11/10/17 11/10/17 17:10 03:44 02:14 POC Glucose 155 H Greater than 550 H* Greater than 550 H* Laboratory Tests 11/07/17 11/09/17 11/10/17 03:50 22:32 02:33 Hgb 10.3 L Carbon Dioxide Less than 8 L* 9 L* Creatinine 7.73 H 7.29 H Calcium Phosphorus Magnesium B-Hydroxybutyrate 11/10/17 11/10/17 11/10/17 02:33 05:13 05:13 Hgb Carbon Dioxide 21 L Creatinine 4.15 H Calcium Phosphorus Magnesium B-Hydroxybutyrate 6.93 H 2.18 H 11/10/17 11/11/17 11/11/17 13:31 04:24 04:24 Hgb Carbon Dioxide Creatinine Calcium 7.4 L Phosphorus 5.2 H 5.3 H Magnesium 2.2 1.7 B-Hydroxybutyrate Radiology Reviewed by me: Yes (PCXR - left mid lung zone atelectasis) EKG Reviewed by me: Yes (Tele - SR in 's) Phys Exam - Physical Examination sleepy but opens eyes to stimulus and name HEENT: PERRLA, moist MMs, sclera anicteric, oral pharynx no lesions Neck: no nodes, no JVD, supple Respiratory: no wheezing, no rales, no rhonchi, clear to auscultation bilateral Cardiovascular: RRR, no significant murmur, no rub, gallop Gastrointestinal: soft, non-tender, no distention, positive bowel sounds mild peripheral edema Musculoskeletal: pulses present Neurological: normal sensation, moves all 4 limbs Psychiatric: normal affect Skin: no rash, normal turgor, cap refill <2 seconds Dx/Plan (1) Acute respiratory failure with hypoxia Code(s): J96.01 - ACUTE RESPIRATORY FAILURE WITH HYPOXIA Status: Acute Comment: s/p SIMV mech ventilation extubated 11/11/17, O2 via NC (2) DKA (diabetic ketoacidosis) Code(s): E13.10 - OTH DIABETES MELLITUS WITH KETOACIDOSIS WITHOUT COMA Status : Acute Qualifiers: Diabetes mellitus type: type 1 Comment: Detemir 5u SC BID, ISS, ADA (3) Toxic metabolic encephalopathy Code(s): G92 - TOXIC ENCEPHALOPATHY Status: Acute Comment: Multifactorial given profound acidosis, DKA and multiple metabolic abnormalities, CT brain showed no acute process, improved off mech ventilation and correction of metabolic processes (4) ESRD (end stage renal disease) on dialysis Code(s): N18.6 - END STAGE RENAL DISEASE; Z99.2 - DEPENDENCE ON RENAL DIALYSIS Status: Chronic Comment: HD per Renal service, completed 2nd session today - Plan continue antibiotics, PT/OT, social media executive, respiratory therapy, DVT proph w/ SCDs Stable overall -: Continue supportive mgmt -: Continue Unasyn -: HD per Renal service -: AM lab: CMP, CBC * Transition to medical in next 24h
[2017-11-11 17:42] LABS: Lactic Acid 4.3 mmol/L (0.5-2.2)
[2017-11-11] MEDS: Insulin Detemir 100 UNITS/ML 5 UNITS in Pre-Filled Syringe 1 EACH SC SCH (21:27)
[2017-11-12 06:02] LABS: Anisocytosis SLIGHT = 6-15 cells (100X) (0-5/hpf); Band 8 % (5-11); Hemoglobin 10.7 g/dL (14.0-18.0); Hypochromia SLIGHT = 6-15 cells (100X) (0-5/hpf); Lymphocytes 17 % (21-51); MDiff Complete? YES; Mean Corpuscular HGB CONC 31.1 g/dL (32.0-36.0); Mean Corpuscular Hemoglobin 31.6 pg (27.0-31.0); Mean Platelet Volume 8.2 fL (7.4-10.4); Monocytes 5 % (0-10); Neutrophil 70 % (42-75); PLT Morphology Comment Appears Decreased; Platelet Count 125 thou/uL (130-400); Polychromasia SLIGHT = 2-3 cells (100X) (0-2/hpf); RBC Distribution Width 15.6 % (11.5-14.5); Red Blood Cell (RBC) Count 3.39 mill/uL (4.70-6.10); White Blood Cell (WBC) Count 8.2 thou/uL (4.8-10.8)
[2017-11-12] MEDS: HumaLOG 300 UNITS/3 ML VIAL SC PRN ×2 (06:30→07:29)
[2017-11-12] MEDS: Insulin Detemir 100 UNITS/ML 5 UNITS in Pre-Filled Syringe 1 EACH SC SCH ×2 (07:29→20:17)
--- NOTE | 2017-11-12 09:29 | PRG ---
DATE OF SERVICE: 11/12/2017 SUBJECTIVE: Mr. Hooks is a 62-year-old white male with ESRD and was admitted for DKA and severe hyp erkalemia. He was managed conservatively. He was also intubated. He also underwent emergent dialys is for the severe hyperkalemia. He has received several sessions of dialysis. He is now extubated. This morning, he is feeling better, but still a little tired. No complaints of chest pain or shortn ess of breath. PHYSICAL EXAMINATION: VITAL SIGNS: Blood pressure is 103/44, heart rate 76, respiratory rate 17, pulse ox 94%. GENERAL: Noted to be awake, supine, comfortable, not in distress. SKIN: Adequate turgor. HEENT: Pinkish conjunctivae. Anicteric sclerae. NECK: No neck mass, no carotid bruits, no JVD. CHEST: No deformities. LUNGS: Clear breath sounds. No wheezing, no crackles. HEART: Normal sinus rhythm. No murmur, no gallops or rubs. ABDOMEN: Globular, soft, nontender, no masses. EXTREMITIES: No edema. MEDICATIONS: Of 11/12/2017 was reviewed. LABORATORY DATA: Of 11/12/2017, white count 8.2, hemoglobin 10.7. Glucose 214. ASSESSMENT AND PLAN: 1. End-stage renal disease, stable. We will continue current Thursday, Thursday, Thursday hemodialysis . Fluid removal only as tolerated. 2. Hyperkalemia, resolved with dialysis. 3. Diabetic ketoacidosis, much improved with insulin drip. The patient is currently on his Humalog sliding scale and has been restarted on the insulin detemir. 4. Borderline anemia, continuing weekly Epogen. We will recheck base met and CBC in a.m. Agree with current management.
[2017-11-12 09:46] LABS: ALT (SGPT) 45 U/L (8-55); AST (SGOT) 34 U/L (5-34); Albumin 2.4 g/dL (3.4-4.8); Alkaline Phosphatase 256 U/L (40-150); Anion Gap 18 mmol/L (10-20); BUN (Urea Nitrogen) 32 mg/dL (8.4-25.7); Bilirubin, Total 0.5 mg/dL (0.2-1.2); Calc. Creatinine Clearance 18 mL/min (70-130); Calcium 7.7 mg/dL (7.8-10.44); Carbon Dioxide 25 mmol/L (23-31); Chloride 99 mmol/L (98-107); Estimated GFR-MDRD 14; Globulin 2.5 g/dL (2.4-3.5); Glucose 151 mg/dL (80-115); Potassium 4.5 mmol/L (3.5-5.1); Protein, Total 4.9 g/dL (5.8-8.1); Sodium 137 mmol/L (136-145)
--- NOTE | 2017-11-12 10:34 | PRG ---
DATE OF SERVICE: 11/12/2017 SERVICE: Pulmonary Medicine. INTERVAL HISTORY: The patient is doing great from a respiratory standpoint. He was extubated comfor tably yesterday to room air. He denies any chest pain, nausea, or vomiting. There were no overnight events. He tolerated dialysis quite well yesterday and had a total of 5 liters of fluid pulled. PHYSICAL EXAMINATION: VITAL SIGNS: Afebrile currently with T-max of 99.0, pulse 73, blood pressure 105/60, respirations 13 , saturation 99% on room air. GENERAL: The patient is awake, alert, in no apparent distress. LUNGS: Decent air entry. There is no prolonged expiratory phase. No wheezing, rhonchi, or crackles are appreciated. HEART: Normal rate and regular. ABDOMEN: Soft, nontender, nondistended. Bowel sounds are positive. MUSCULOSKELETAL: No cyanosis or clubbing. There is 2+ pitting in the bilateral lower extremities. NEUROLOGIC: Grossly nonfocal. LABORATORY DATA: WBC 8.2, hemoglobin 10.7, platelets 125,000. Band count 8% and slightly increasing . Lactate 4.3 and blood sugar is ranging from 119-240. IMAGING: Chest x-ray demonstrates there is an artifact present, likely giving this thing an appearan ce of a possible pneumothorax which is unlikely. I clearly see some lung markings extend beyond this . ASSESSMENT: 1. Acute hypoxic respiratory failure, resolved. 2. Metabolic encephalopathy, resolved. 3. Type 1 diabetes mellitus. 4. Elevated transaminases. 5. End-stage renal disease. 6. Medical noncompliance. PLAN: We will continue our subcu insulin and increase a little bit. From my perspective, he is stab le for transition out of the IM. The lactate was elevated, but my suspicion is that this is not as sociated with acidosis. We will repeat the lactate tomorrow morning in addition to some chemistries. Pulmonary or Critical Care will continue to follow along. A 2-view chest x-ray will be performed.
[2017-11-12] MEDS: Sevelamer Carbonate 800 MG TAB PO SCH ×2 (13:17→17:23)
[2017-11-12] MEDS: HumaLOG 300 UNITS/3 ML VIAL SC SCH ×2 (13:17→17:24)
--- NOTE | 2017-11-12 13:42 | RAD ---
2 VIEWS CHEST: Date: 11/12/17 HISTORY: Evaluate artifact. COMPARISON: 11/11/17, 11/09/17. FINDINGS: Interval removal of endotracheal and nasogastric tubes. Stable configuration of cardiac silhouette. C ostophrenic angles are clear. Persistent elevation right hemidiaphragm. Hyperinflation with what are presumed to be chronic changes are noted. There are interstitial opacities in the left lower lobe. Th ere is an oval density in the right upper lobe, incompletely evaluated. No osseous abnormalities or p neumothorax. IMPRESSION: 1. Lung parenchymal opacities as above. Better interrogation with CT is recommended, nonemergently. 2. No evidence of a left-sided pneumothorax. POS: [facility]
[2017-11-12] MEDS: Carvedilol 6.25 MG TAB PO SCH (17:23)
--- NOTE | 2017-11-12 18:18 | PDOC.PN ---
- Subjective Encounter Start Date: 11/12/17 Encounter Start Time: 18:10 Subjective: f/u for DKA and resp failure with mech vent extubated 11/11/17. Overall -: feels good and transitioned to medical floor. Tolerating po intake. - Objective Resuscitation Status: Resuscitation Status FULL:Full Resuscitation MAR Reviewed: Yes Vital Signs & Weight: Vital Signs (12 hours) Temp Pulse Resp BP BP Pulse Ox 11/12/17 17:23 102/57 L 11/12/17 15:47 98.1 F 79 16 94 L 11/12/17 10:18 98.1 F 79 16 134/76 94 L 11/12/17 08:00 99.0 F 75 10 L 93 L Weight Admit Weight 159 lb Weight 159 lb 2.78 oz Most Recent Monitor Data Heart Rate from ECG 73 NIBP 105/60 NIBP BP-Mean 71 Respiration from ECG 13 SpO2 99 I&O: 11/11/17 11/12/17 11/13/17 06:59 06:59 06:59 Intake Total 2114.3 1238 120 Output Total 0 0 Balance 2114.3 1238 120 Result Diagrams: 11/12/17 04:55 11/12/17 04:55 Additional Labs: Accuchecks 11/12/17 11/12/17 11/12/17 16:58 10:48 07:27 POC Glucose 59 L* 119 H 240 H 11/12/17 11/11/17 05:23 21:29 POC Glucose 178 H 119 H Radiology Reviewed by me: Yes (PCXR - no acute infiltrates, no pneumothorax) Phys Exam - Physical Examination Constitutional: NAD alert, responsive HEENT: PERRLA, moist MMs, sclera anicteric, oral pharynx no lesions Neck: no nodes, no JVD, supple Respiratory: no wheezing, no rales, no rhonchi, clear to auscultation bilateral Cardiovascular: RRR, no significant murmur, no rub, gallop Gastrointestinal: soft, non-tender, no distention, positive bowel sounds Musculoskeletal: no edema, pulses present Neurological: non-focal, normal sensation, moves all 4 limbs Psychiatric: normal affect, A&O x 3 Skin: no rash, normal turgor, cap refill <2 seconds Dx/Plan (1) Acute respiratory failure with hypoxia Code(s): J96.01 - ACUTE RESPIRATORY FAILURE WITH HYPOXIA Status: Acute Comment: s/p SIMV mech ventilation extubated 11/11/17, O2 via NC, stable (2) DKA (diabetic ketoacidosis) Code(s): E13.10 - OTH DIABETES MELLITUS WITH KETOACIDOSIS WITHOUT COMA Status : Acute Qualifiers: Diabetes mellitus type: type 1 Comment: Detemir 5u SC BID, ISS, ADA (3) Toxic metabolic encephalopathy Code(s): G92 - TOXIC ENCEPHALOPATHY Status: Acute Comment: Multifactorial given profound acidosis, DKA and multiple metabolic abnormalities, CT brain showed no acute process, improved off mech ventilation and correction of metabolic processes (4) ESRD (end stage renal disease) on dialysis Code(s): N18.6 - END STAGE RENAL DISEASE; Z99.2 - DEPENDENCE ON RENAL DIALYSIS Status: Chronic Comment: HD per Renal service, completed 2 sessions without complication - Plan continue antibiotics, PT/OT, licensed master social worker, out of bed/ambulate Stable overall -: Continue Unasyn another 24h then d/c -: Watch BP on Coreg -: OOB/ambulate -: AM lab: BMP, CBC, Lactate * HD per Renal service * Likely home in 24h
[2017-11-12] MEDS: Famotidine 40 MG/4 ML VIAL SLOW IVP SCH (19:44)
[2017-11-12] MEDS: Amoxicillin/Potassium Clav 500 MG TAB PO SCH (21:09)
[2017-11-13] MEDS: HumaLOG 300 UNITS/3 ML VIAL SC PRN (05:19)
[2017-11-13 05:20] LABS: #Basophils 0.1 thou/uL (0.0-0.2); #Eosinphils 0.1 thou/uL (0.0-0.7); #Lymphocytes 1.6 thou/uL (1.20-3.40); #Monocytes 0.6 thou/uL (0.11-0.59); #Neutrophils 6.3 thou/uL (1.40-6.50); %Basophils 0.7 % (0.0-1.0); %Eosinophils 0.9 % (0.0-10.0); %Lymphocytes 18.5 % (21.0-51.0); %Monocytes 7.4 % (0.0-10.0); %Neutrophils 72.5 % (42.0-75.0); Hemoglobin 9.6 g/dL (14.0-18.0); Mean Corpuscular HGB CONC 31.8 g/dL (32.0-36.0); Mean Corpuscular Hemoglobin 32.1 pg (27.0-31.0); Mean Platelet Volume 8.1 fL (7.4-10.4); Platelet Count 120 thou/uL (130-400); RBC Distribution Width 15.2 % (11.5-14.5); White Blood Cell (WBC) Count 8.6 thou/uL (4.8-10.8)
[2017-11-13 05:33] LABS: Lactic Acid 0.7 mmol/L (0.5-2.2)
[2017-11-13 05:39] LABS: Anion Gap 15 mmol/L (10-20); BUN (Urea Nitrogen) 44 mg/dL (8.4-25.7); Calc. Creatinine Clearance 14 mL/min (70-130); Calcium 7.9 mg/dL (7.8-10.44); Carbon Dioxide 25 mmol/L (23-31); Chloride 99 mmol/L (98-107); Estimated GFR-MDRD 10; Glucose 325 mg/dL (80-115); Sodium 134 mmol/L (136-145)
--- NOTE | 2017-11-13 07:26 | PRG ---
DATE OF SERVICE: 11/13/2017 SUBJECTIVE: Mr. Hooks is a 62-year-old white male with ESRD and was admitted for severe hypoglycemi a with hyperkalemia. He was intubated at that time and underwent emergent hemodialysis. During the last few days he is much improved with dialysis and he was also treated with an IV insulin drip. His hyperglycemia and hyperkalemia is now resolved. He has no new complaints today. His appetite is mu ch improved. He denies any chest pain or shortness of breath. PHYSICAL EXAMINATION: VITAL SIGNS: Blood pressure 145/82, heart rate 75, respiratory rate 18, temperature 98.2, pulse ox 9 2%. GENERAL: Awake, alert, comfortable, not in distress. SKIN: Adequate turgor. HEENT: He has pinkish conjunctivae, anicteric sclerae. NECK: No neck mass, no carotid bruits, no JVD. CHEST: No deformities. LUNGS: Clear breath sounds. HEART: Normal sinus rhythm. No murmur, no gallops, no rubs. ABDOMEN: Globular, soft, nontender, no masses. EXTREMITIES: No edema, no deformities. MEDICATIONS: 11/13/2017 - Reviewed. LABORATORY: 11/13/2017 - White count 8.6, hemoglobin 9.6. Sodium 134, potassium 5, chloride 99, car bon dioxide 25, BUN 44, creatinine 5.58, glucose 325, calcium 7.9. ASSESSMENT AND PLAN: 1. End-stage renal disease, stable. We will continue current Thursday, Thursday, Thursday hemodialysis regimen. Again, fluid removal only as tolerated by the patient. 2. Hyperglycemia, resolved with insulin drip, currently on his regular insulin regimen. 3. Hyperkalemia, resolved. Continue current hemodialysis regimen. I agree with current management.
[2017-11-13] MEDS: Sevelamer Carbonate 800 MG TAB PO SCH ×3 (08:06→17:44)
[2017-11-13] MEDS: HumaLOG 300 UNITS/3 ML VIAL SC SCH ×3 (08:07→17:44)
[2017-11-13] MEDS: Carvedilol 6.25 MG TAB PO SCH ×2 (08:07→17:44)
[2017-11-13] MEDS: Insulin Detemir 100 UNITS/ML 5 UNITS in Pre-Filled Syringe 1 EACH SC SCH (09:02)
[2017-11-13] MEDS: Amoxicillin/Potassium Clav 500 MG TAB PO SCH (09:15)
--- NOTE | 2017-11-13 10:03 | PRG ---
DATE OF SERVICE: 11/13/2017 SERVICE: Pulmonary Medicine INTERVAL HISTORY: The patient had an uneventful night. There were no reported events. He denies an y current chest pain, fevers, chills, nausea, vomiting or shortness of breath. He is down in dialysi s right now and tolerating this just fine. PHYSICAL EXAMINATION: VITAL SIGNS: Afebrile, pulse 69, blood pressure 133/77, respirations 16, saturation 94% on room air. GENERAL: The patient is awake, alert, in no apparent distress. LUNGS: Decent air entry. There is no prolonged expiratory phase. There is no wheezing, rhonchi, or crackles present. HEART: Normal rate, regular. ABDOMEN: Soft, nontender, nondistended. Bowel sounds are positive. MUSCULOSKELETAL: No cyanosis or clubbing. There is no pitting in the bilateral lower extremities. NEUROLOGIC: Grossly nonfocal. LABORATORY DATA: Hemoglobin 9.6, WBC 8.6, platelets 120,000. Basic metabolic profile is essentially unremarkable except for a BUN of 44 and creatinine of 5.58. Blood sugar 306. ASSESSMENT: 1. Acute hypoxic respiratory failure, resolved. 2. Metabolic encephalopathy, resolved. 3. Type 1 diabetes mellitus. 4. Elevated transaminases. 5. End-stage renal disease. 6. Medical noncompliance. DISCUSSION AND PLAN: I will back off on the sliding scale to a mild one. We will continue doing the premeal insulin as well as his long-acting insulin twice daily. At this point, he has no further re quirements for inpatient Pulmonary Critical Care opinion and I will sign off. Please call with addit ional questions or concerns moving forward.
[2017-11-13] MEDS ORDERED: HumaLOG 300 UNITS/3 ML VIAL SC PRN (10:08)
[2017-11-13 13:33] VITALS: BMI 23.5
[2017-11-13 17:42] VITALS: BP 155/78; TEMP 98.5
--- NOTE | 2017-11-13 21:23 | DIS ---
DATE OF ADMISSION: 11/10/2017 DATE OF DISCHARGE: 11/13/2017 DISCHARGE DIAGNOSES: 1. Acute hypoxic respiratory failure with mechanical ventilation, resolved. 2. Diabetic ketoacidosis, resolved. 3. Toxic metabolic encephalopathy secondarily to #2, resolved. 4. End-stage renal disease with hemodialysis. CONSULTATION: Dr. West with Pulmonology Service. PERTINENT LABORATORY AND X-RAY FINDINGS: Creatinine ranged between 3.93-7.73, estimated GFR ranging between 7-16, sodium level ranged between 122-137, potassium ranged between 4.4-9.1. Lactic acid lev el ranged between 0.7-4.3. BNP 2574. TSH 7.0. CBC showed a white blood cell count ranging between 8.2-10.1, hemoglobin ranged between 9.6-10.7, beta hydroxybutyrate level ranged between 2.18-6.93. C T of the brain without contrast dated 11/09/2017 showed no acute intracranial process. Portable ches t x-ray dated 11/09/2017 showed atelectasis of the right mid lung zone and left lower lobe. HOSPITAL COURSE: The patient was initially admitted after presenting with altered mentation with matt betic ketoacidosis. The patient was initially noted with glucose values of approximately 1200, initi ated on aggressive IV fluid hydration as well as insulin infusion. The patient was also noted with s evere hyperkalemia with potassium level 9.1, undergoing emergent hemodialysis. The patient required mechanical ventilation due to respiratory failure and was managed by the critical care stay. The pat ient remained on DKA protocol, transitioning to long-acting subcutaneous insulin and IV fluid hydrati on. The patient continued to receive maintenance hemodialysis during the hospital course, tolerating without difficulty. The patient was able to extubate on 11/11/2017, transitioning to oxygen by nasa l cannula. The patient was advanced to regular oral intake and overall mental status improved with r esolution of encephalopathy with supportive measures. No specific evidence of infectious process was identified. The patient transitioned to the medical floor and remained clinically stable with vital signs for remainder the hospital course. At the time of discharge exam, the patient discussed labor atory findings, radiographic studies and discharge planning with the patient and family who verbalize d understanding and agreement with the plan. The patient is ready for discharge on 11/13/2017. DISCHARGE MEDICATIONS: 1. Coreg 12.5 mg p.o. b.i.d. 2. NovoLog 10 units subcutaneously daily. 3. Tresiba FlexTouch 10 units subcutaneously q.a.m. 4. Humulin sliding scale. 5. Melatonin 3 mg p.o. at bedtime. 6. Renvela 800 mg p.o. t.i.d. FOLLOWUP: The patient will follow up with his primary care provider, Dr. Ahmet Mayen at the [facility] within 7 days of discharge. The patient will follow up with Dr. Juarez with Nephrology Service w [facility] hemodialysis Thursday, Thursday, Thursday in [place], [place]. CONDITION ON DISCHARGE: Stable. ACTIVITY: ad abraham. DIET: ADA. CODE STATUS: DO NOT RESUSCITATE. DISPOSITION: Home. DISPOSITION: Home on 11/13/2017. Total time preparing and coordinating discharge was 34 minutes.
== END 2017-11-13 17:50 | disposition home or self-care (01) | DRG 208 ==
LOC: ERS 21:51 → CCU 11-10 00:08 → T4-B 11-12 10:53
PROVIDERS: ADMIT Internal Medicine Infectious Disease; ATTEND Internal Medicine Infectious Disease
PROC: 5A1D70Z Performance of Urinary Filtration, Intermittent, Less than 6 Hours Per Day (ICD-10-PCS; principal; 2017-11-10)
PROC: 5A1935Z Respiratory Ventilation, Less than 24 Consecutive Hours (ICD-10-PCS; 2017-11-10)
PROC: 0BH17EZ Insertion of Endotracheal Airway into Trachea, Via Natural or Artificial Opening (ICD-10-PCS; 2017-11-10)
PROC: 5A1D70Z Performance of Urinary Filtration, Intermittent, Less than 6 Hours Per Day (ICD-10-PCS; 2017-11-13)
DX: J96.01 Acute respiratory failure with hypoxia (principal); G93.41 Metabolic encephalopathy; E10.10 Type 1 diabetes mellitus with ketoacidosis without coma; I44.2 Atrioventricular block, complete; N18.6 End stage renal disease; I12.0 Hypertensive chronic kidney disease with stage 5 chronic kidney disease or end stage renal disease; E10.22 Type 1 diabetes mellitus with diabetic chronic kidney disease; Z99.2 Dependence on renal dialysis; Z91.19 Patient's noncompliance with other medical treatment and regimen; E87.5 Hyperkalemia; D63.1 Anemia in chronic kidney disease; R74.0 Nonspecific elevation of levels of transaminase and lactic acid dehydrogenase [LDH]; Z79.4 Long term (current) use of insulin
CPT/HCPCS: 31500; 36415; 36416; 36556; 51702; 70450; 71045; 71046; 80048; 80053; 82010; 82140; 82330; 82550; 82553; 82803; 82805; 83605; 83735; 83880; 84100; 84443; 84484; 85007; 85025; 85027; 85610; 85730; 90935; 93005; 94003; 96365; 96366; 96367; 96374; 96375; 96376; 99292; G0257; G8978-GP-CN; G8979-GP-CK; J0171; J0295; J0461; J1815; J2704; J3010; J7050; J7070; Q4081

== ENCOUNTER 2017-11-14 18:40 | Inpatient (IN) | payer MEDICARE ==
[2017-11-14 19:06] LABS: #Basophils 0.1 thou/uL (0.0-0.2); #Lymphocytes 1.5 thou/uL (1.20-3.40); #Monocytes 0.5 thou/uL (0.11-0.59); #Neutrophils 5.8 thou/uL (1.40-6.50); %Eosinophils 0.4 % (0.0-10.0); %Lymphocytes 18.5 % (21.0-51.0); %Monocytes 6.3 % (0.0-10.0); %Neutrophils 73.9 % (42.0-75.0); Hemoglobin 10.4 g/dL (14.0-18.0); Mean Corpuscular HGB CONC 32.5 g/dL (32.0-36.0); Mean Corpuscular Hemoglobin 33.2 pg (27.0-31.0); Mean Platelet Volume 8.1 fL (7.4-10.4); Platelet Count 145 thou/uL (130-400); Red Blood Cell (RBC) Count 3.13 mill/uL (4.70-6.10); White Blood Cell (WBC) Count 7.9 thou/uL (4.8-10.8)
[2017-11-14 19:20] LABS: ALT (SGPT) 34 U/L (8-55); AST (SGOT) 26 U/L (5-34); Albumin 2.7 g/dL (3.4-4.8); Alkaline Phosphatase 264 U/L (40-150); Anion Gap 20 mmol/L (10-20); BUN (Urea Nitrogen) 36 mg/dL (8.4-25.7); Bilirubin, Total 0.5 mg/dL (0.2-1.2); Calc. Creatinine Clearance 0 mL/min (70-130); Calcium 7.9 mg/dL (7.8-10.44); Carbon Dioxide 21 mmol/L (23-31); Chloride 94 mmol/L (98-107); Estimated GFR-MDRD 12; Globulin 2.8 g/dL (2.4-3.5); Glucose 530 mg/dL (80-115); Potassium 4.7 mmol/L (3.5-5.1); Protein, Total 5.5 g/dL (5.8-8.1); Sodium 130 mmol/L (136-145)
[2017-11-14 19:25] LABS: CKMB 2.5 ng/mL (0-6.6); Troponin I 0.114 ng/mL (< 0.028)
[2017-11-14] MEDS ORDERED: Insulin Regular 300 UNITS/3 ML VIAL ONE (19:37)
--- NOTE | 2017-11-14 20:14 | RAD ---
PORTABLE AP CHEST X-RAY: 11/14/17 HISTORY: Hyperglycemia and weakness COMPARISON: 11/11/17. FINDINGS: The cardiac silhouette is magnified by projection. Again noted is lucency overlying the right lateral chest with similar appearance on the study of 11/11/17. The findings have the appearance most suggest luis of skin folds, although pneumothorax could not be excluded given this appearance. However, a PA a nd lateral chest x-ray was obtained on 11/12/17 which did demonstrate resolution of the findings on th e study of 11/11/17 and this again is likely related to skin fold as opposed to pneumothorax. If there is concern for pneumothorax, a PA and lateral chest x-ray is recommended. Nodular parenchyma l densities are again seen within the right mid lung zone in the region of the lingula which are stab le from prior studies. The findings may be related to areas of scarring. There is mild elevation of t he right hemidiaphragm. Lungs are otherwise clear. No other interval change. IMPRESSION: 1. Linear lucency overlying the left lateral chest. While this likely represents a skin fold, gi delilah the appearance, a pneumothorax cannot be entirely excluded. However, a similar finding was noted on the study of 11/11/17, and repeat PA and lateral chest x-ray demonstrated no pneumothorax. However, if there is concern for pneumothorax a PA and lateral chest x-ray or CT is recommended. 2. Nodular parenchymal changes in the right mid lung zone and in the region of the lingula stabl e from prior studies which may be related to areas of scarring. 3. Above findings were discussed with Dr. Yuan in the Emergency Department on 11/14/17 at 1952 hours. POS: [facility]
[2017-11-14] MEDS ORDERED: Ondansetron ODT 4 MG TAB SL PRN (20:57)
[2017-11-14] MEDS ORDERED: Acetaminophen 325 MG TAB PO PRN (20:57)
[2017-11-14] MEDS ORDERED: Ondansetron HCl/PF 4 MG/2 ML Vial IVP PRN (20:57)
[2017-11-14 22:38] LABS: Troponin I 0.125 ng/mL (< 0.028)
--- NOTE | 2017-11-14 22:38 | CT ---
CT THORAX WITHOUT IV CONTRAST 11/14/17 HISTORY: Abnormal chest x-ray. COMPARISON: None available. FINDINGS: There is a lucency along the left lateral chest noted on recent chest x-ray on 11/14/17, but there is no evidence of a pneumothorax on this exam. The findings are most likely attributable to overlying sk in fold. There are tubular areas of decreased attenuation seen within the right upper lobe which could be rela domingo to areas of mucus plugging. Coarse calcification is also present in this region within the right upper lobe. This finding is present on multiple prior exams. There is a 1 cm nodular density seen within the right lower lobe with larger nodular density in the l eft lower lobe measuring 2.2 cm. A parenchymal opacity adjacent to the lower aspect of the major fis sure is seen with lucencies identified which may be related to subtle areas of cavitation. There are additional smaller nodular densities also present in the left lower lobe. There are scattered reticu lonodular densities seen in both the left upper and left lower lobes and to a lesser extent in the ri ght upper lobe. The above findings may be related to infectious process and an atypical infectious pr ocess is a possibility. There are very small bilateral pleural effusions. Vascular calcifications are seen in the coronary arteries. Dense mitral valve calcifications are pres ent. There is prominent increased density of the liver which is a nonspecific finding. Subcentimeter low d ensity area seen at the posterior aspect right hepatic lobe which may represent focal area of scarri ng as there is irregularity in the liver margin in this region. An additional subcentimeter lesion is also seen. Left kidney is incompletely imaged but is atrophic. Vascular calcifications are seen in the upper abd omen. There is mild diffuse subcutaneous edema. IMPRESSION: 1. No evidence of a pneumothorax. 2. Nodular densities within the lungs bilaterally as well as scattered reticulonodular densities bilaterally with a large branching tubular structure in the right upper lobe which could be related to mucus plugging. The multiple nodular densities including reticulonodular densities may be related to atypical infectious process. While neoplastic process cannot be entirely excluded, findings are th ought to more likely favor an infectious process. 3. Small bilateral pleural effusions. 4. Subcutaneous edema. 5. Vascular calcifications. 6. Increased density of the liver which is nonspecific but can be seen in patient's with prior A miodarone therapy, glycogen storage diseases, hemochromatosis versus other etiologies. 7. Subcentimeter too small to characterize hypodense lesion in the posterior segment right hepat ic lobe with additional area also seen within the more peripheral and posterior aspect right hepatic lobe. 8. Very small pericardial effusion. POS: [facility]
[2017-11-14 23:58] LABS: Lactic Acid 5.9 mmol/L (0.5-2.2)
[2017-11-15 01:53] LABS: Troponin I 0.107 ng/mL (< 0.028)
[2017-11-15 02:45] LABS: Lactic Acid 4.1 mmol/L (0.5-2.2)
[2017-11-15] MEDS ORDERED: Dextrose 50% Abboject 50 ML SYRINGE SLOW IVP PRN (11:02)
[2017-11-15] MEDS ORDERED: HYDROcodone/Acetaminophen 5/325 mg Tablet PO PRN (11:02)
[2017-11-15] MEDS ORDERED: Dextrose 5% in Water 1,000 ML IV PRN (11:02)
[2017-11-15] MEDS: Sevelamer Carbonate 800 MG TAB PO SCH ×2 (11:42→17:46)
[2017-11-15] MEDS: HumaLOG 300 UNITS/3 ML VIAL SC PRN ×2 (11:42→17:47)
[2017-11-15 11:43] LABS: #Lymphocytes 0.8 thou/uL (1.20-3.40); #Monocytes 0.4 thou/uL (0.11-0.59); #Neutrophils 7.2 thou/uL (1.40-6.50); %Basophils 0.4 % (0.0-1.0); %Eosinophils 0.4 % (0.0-10.0); %Lymphocytes 9.7 % (21.0-51.0); %Monocytes 4.4 % (0.0-10.0); Hemoglobin 10.4 g/dL (14.0-18.0); Mean Corpuscular HGB CONC 31.9 g/dL (32.0-36.0); Mean Corpuscular Hemoglobin 32.4 pg (27.0-31.0); Mean Platelet Volume 7.7 fL (7.4-10.4); Platelet Count 177 thou/uL (130-400); RBC Distribution Width 14.9 % (11.5-14.5); Red Blood Cell (RBC) Count 3.22 mill/uL (4.70-6.10); White Blood Cell (WBC) Count 8.5 thou/uL (4.8-10.8)
--- NOTE | 2017-11-15 11:47 | HP ---
DATE OF ADMISSION: 11/15/2017 CHIEF COMPLAINT: Hyperglycemia, high sugars. HISTORY OF PRESENT ILLNESS: This is a 62-year-old white male with known history of type 2 diabetes m kourtney, poorly controlled since he was changed from Humulin to NovoLog. He has not been able to con trol his blood sugars. He was recently admitted with diabetic ketoacidosis and was discharged 2 days ago with same dose NovoLog, which he was getting previously as Humulin. He has sliding scale. The patient was feeling very tired and fatigued and they checked his blood sugars, it was in 500s and he decided to come to the ER for further evaluation. He lives in [place], but he came to the [facility] ER directly as he had a recent care over here. He denies having any chest pain, nausea, vomiting or diarrhea, but he had a chest x-ray in the ER which was suspicious for some nodular infiltrates an d CT of the chest was done which did show evidence of nodules in the lung which is suspicious for aty pical infections or possible neoplastic diseases. The patient is otherwise in good health. He is al ert and oriented. PAST MEDICAL HISTORY: 1. Type 2 diabetes mellitus. 2. End-stage renal disease on hemodialysis. 3. Hypertension. PAST SURGICAL HISTORY: AV fistula creation to the left arm, tonsillectomy. HOME MEDICATIONS: Tresiba 10 units subcu in the morning, regular sliding scale insulin, melatonin 3 mg at bedtime, Renvela 800 mg p.o. t.i.d., Coreg 12.5 mg p.o. b.i.d., labetalol 200 mg p.o. b.i.d., l isinopril 40 mg p.o. daily, nifedipine 60 mg p.o. b.i.d. ALLERGIES: No known drug allergies. FAMILY HISTORY: No significant family history of coronary artery disease, but diabetes runs in the f amily. SOCIAL HISTORY: No history of smoking. No history of alcohol, no history of illicit drug use. REVIEW OF SYSTEMS: All 12 systems reviewed with the patient thoroughly and found to be negative at t his time. Systems reviewed are HEENT, CVS, LIVESTOCK BUYER, respiratory, GI, , musculoskeletal, skin, and psyc hiatric. The following complete review of systems was negative, unless otherwise mentioned in the HPI or below : Constitutional: Weight loss or gain, sense of well-being, ability to conduct usual activities, exerc ise tolerance. Skin/Breast: Rash, itching, changes in hair growth or loss, nail changes, breast lumps, tenderness, swelling, nipple discharge. Eyes: Vision, double vision, tearing, blind spots, pain. ENT/Mouth: Headaches (location, time of onset, duration, precipitating factors), vertigo, lightheade dness, injury. Vision, double vision, tearing, blind spots, pain, nose bleeding, colds, obstruction, discharge, dental difficulties, gingival bleeding, dentures, neck stiffness, pain, tenderness, masses in thyroid or other areas Cardiovascular: Precordial pain, substernal distress, palpitations, syncope, dyspnea on exertion, or thopnea, nocturnal paroxysmal dyspnea, edema, cyanosis, hypertension, heart murmurs, varicosities, ph lebitis, claudication. Respiratory: Pain, shortness of breath, wheezing, stridor, cough, hemoptysis, fever or night sweats Gastrointestinal: Poor appetite, dysphagia, indigestion, abdominal pain, heartburn, eructation, naus ea, vomiting, hematemesis, jaundice, constipation, or diarrhea, abnormal stools (marion-colored, tarry, bloody, greasy, foul smelling), flatulence, hemorrhoids, recent changes in bowel habits. Genitourinary: Urgency, frequency, dysuria, nocturia, hematuria, polyuria, oliguria, unusual (or rené nge in) color of urine, stones, hesitancy, change in size of stream, dribbling, acute retention or in continence, libido, potency. Musculoskeletal: Pain, swelling, redness or heat of muscles or joints, limitation, of motion, muscul ar weakness, atrophy, cramps. Neurologic/Psychiatric: Convulsions, paralyses, tremor, incoordination, paraesthesias, difficulties with memory of speech, sensory or motor disturbances, or muscular coordination (ataxia, tremor), emot ional problems, anxiety, depression, previous psychiatric care, unusual perceptions, hallucinations. Allergy/Immunologic: Skin rash, anemia, bleeding tendency, polydipsia, polyuria, intolerance to heat or cold. PHYSICAL EXAMINATION: VITAL SIGNS: Blood pressure 141/67, heart rate of 70, respiratory 18, saturating 95% on room air. GENERAL: The patient is moderately built and moderately nourished, does not appear to be in acute di stress at this time. Alert and oriented x3. HEENT: Atraumatic, normocephalic, PERRLA. Extraocular muscles were intact. Oral mucosa is pink and moist. CARDIOVASCULAR: S1, S2 normal. No murmurs, rubs or gallops. LUNGS: Bilateral air entry was equal. No wheezing, no crackles. ABDOMEN: Soft, nontender, no guarding, no rebound tenderness. Bowel sounds normal. MUSCULOSKELETAL: No calf tenderness. No pedal edema, no joint tenderness, no joint swelling. SKIN: No cyanosis, erythema. Some rash was noted in the upper extremities. He says that they are s ome bug bites. PSYCHIATRIC: No signs of suicidal ideation. No signs of hemal. NECK: No thyromegaly, no JVD was noted. LABORATORY DATA: 1. Sodium is 130, potassium 4.7, bicarbonate 21, anion gap of 20, blood sugar 328. 2. Elevated troponin, trending down. 3. Lactic acid 4.1, trending down. 4. WBC 9.8, hemoglobin 10.5, hematocrit 31.9, and platelets 145. ASSESSMENT: 1. Acute hyperglycemia, poorly controlled. 2. Non-ST elevation myocardial infarction. 3. End-stage renal disease on hemodialysis. 4. Metabolic acidosis with elevated lactic acid, likely from end-stage renal disease. 5. Mild bilateral pleural effusions. PLAN: 1. The plan is to closely monitor this patient. We will start the patient on 30 units of Levemir at this time and put him on high intensity sliding scale. We will closely monitor the patient to see i f he would go into DKA. The patient's anion gap was done yesterday which was 20. We will repeat lab s today. 2. The patient has elevated anion gap and we will transfer the patient to ICU for DKA protocol and i nsulin drip. 3. Patient has hypertension, well controlled. We will continue the patient's home medications. 4. Patient has elevated troponin, most likely this could be renal retention of the troponins. No ev idence of any chest pain was noted. We will continue the patient on the aspirin and beta monica. 5. The patient has elevated lactic acid, most likely from end-stage renal disease. His creatinine w as 5.11 and BUN was 36 and the patient is on end-stage renal disease on hemodialysis. We will consul t his Nephrology for continuing on his dialysis. 6. DVT prophylaxis, Lovenox. I spent 75 minutes on this patient.
[2017-11-15 11:57] LABS: Actual Bicarbonate (HCO3a) 19.8 mEq/L (22-26); Base Excess (BEa) -5.2 mEq/L (0 (+/-) 2.5); CO2 Tension 36.4 mmHg (35.0-45.0); O2 Tension (PaO2) 79.4 mmHg (80.0-100.0); pH, Arterial 7.35 (7.35-7.45)
[2017-11-15 11:58] LABS: Hemoglobin (Hb) 9.5 g/dL (14.0-18.0)
[2017-11-15 11:59] LABS: Calcium, Ionized 1.1 mmol/L (1.12-1.30)
[2017-11-15 12:00] LABS: Puncture Site LBA
[2017-11-15 12:02] LABS: Anion Gap 22 mmol/L (10-20); BUN (Urea Nitrogen) 42 mg/dL (8.4-25.7); Calc. Creatinine Clearance 15 mL/min (70-130); Calcium 7.9 mg/dL (7.8-10.44); Carbon Dioxide 19 mmol/L (23-31); Chloride 94 mmol/L (98-107); Estimated GFR-MDRD 10; Potassium 5.4 mmol/L (3.5-5.1); Sodium 130 mmol/L (136-145)
[2017-11-15 12:07] LABS: Glucose 634 mg/dL (80-115)
[2017-11-15] MEDS: Carvedilol 6.25 MG TAB PO SCH (21:04)
[2017-11-15] MEDS: Melatonin 3 MG TAB PO SCH (21:04)
[2017-11-16 05:21] LABS: #Basophils 0.2 thou/uL (0.0-0.2); #Eosinphils 0.2 thou/uL (0.0-0.7); #Lymphocytes 3.5 thou/uL (1.20-3.40); #Monocytes 0.8 thou/uL (0.11-0.59); %Basophils 1.7 % (0.0-1.0); %Eosinophils 1.8 % (0.0-10.0); %Neutrophils 59.6 % (42.0-75.0); Hemoglobin 10.4 g/dL (14.0-18.0); Mean Corpuscular HGB CONC 33.1 g/dL (32.0-36.0); Mean Corpuscular Hemoglobin 32.5 pg (27.0-31.0); Mean Corpuscular Volume 98.2 fl (80.0-94.0); Mean Platelet Volume 8.1 fL (7.4-10.4); Platelet Count 225 thou/uL (130-400); RBC Distribution Width 14.8 % (11.5-14.5); Red Blood Cell (RBC) Count 3.19 mill/uL (4.70-6.10); White Blood Cell (WBC) Count 11.8 thou/uL (4.8-10.8)
[2017-11-16 05:26] LABS: Anion Gap 15 mmol/L (10-20); BUN (Urea Nitrogen) 49 mg/dL (8.4-25.7); Calc. Creatinine Clearance 14 mL/min (70-130); Calcium 7.9 mg/dL (7.8-10.44); Carbon Dioxide 25 mmol/L (23-31); Chloride 97 mmol/L (98-107); Estimated GFR-MDRD 10; Potassium 4.2 mmol/L (3.5-5.1); Sodium 133 mmol/L (136-145)
[2017-11-16 05:32] LABS: Glucose 23 mg/dL (80-115)
[2017-11-16] MEDS ORDERED: Dextrose 50% Abboject 50 ML SYRINGE ONE (05:40)
[2017-11-16] MEDS ORDERED: Insulin Detemir 100 UNITS/ML 35 UNITS in Admixture Fee 1 EACH SC SCH (08:00)
[2017-11-16] MEDS ORDERED: Epoetin (ESRD) 20,000 UNITS/ML SC SCH (09:00)
--- NOTE | 2017-11-16 09:15 | PRG ---
DATE OF SERVICE: 11/16/2017 SERVICE: Renal Medicine. SUBJECTIVE: Mr. Hooks is a 62-year-old white male with ESRD - on maintenance hemodialysis and readm itted for brittle diabetes. His initial blood sugar was noted to be 550. Insulin was given to the p atient, this morning it has dropped down to less than 35. He has been started on p.o. He is a littl e better after giving him his food. No chest pain or shortness of breath. OBJECTIVE: VITAL SIGNS: Blood pressure is noted to be 162/77, heart rate 59, respiratory rate 18, temperature 9 7.7, pulse ox 96%. GENERAL: Awake, lethargic, not in overt distress. SKIN: Adequate turgor. HEENT: He has pinkish conjunctivae, anicteric sclerae. NECK: No neck mass, no carotid bruits, no JVD. CHEST: No deformities. LUNGS: Clear breath sounds. No wheezing, no crackles. HEART: Normal sinus rhythm. No murmur, no gallops, no rubs. ABDOMEN: Globular, soft, nontender. No masses. EXTREMITIES: No edema, no deformities. MEDICATIONS: Medications of 11/16/2017 was reviewed. LABORATORY DATA: Laboratories of 11/16/2017, white count 11.8, hemoglobin 10.4, hematocrit 31.4. So dium 133, potassium 4.2, chloride 97, carbon dioxide 25, BUN 49, creatinine 6.05, glucose 23, calcium is 7.9. ASSESSMENT AND PLAN: 1. Brittle diabetes - the patient's sugar has been fluctuating as highest 550 to most recent value o f 24 mg percent. Adjust insulin regimen as needed. 2. End-stage renal disease, stable. We will continue current Thursday, Thursday, and Thursday dialysis . I have scheduled him for his dialysis this afternoon. We will continue the current 4-hour hemodia lysis regimen with this patient. 3. Anemia. I will be restarting back Epogen at 7500 units subcutaneously every week. The concern with this patient with multiple admissions, he may need to be placed in a fdc facility for the moment. We will discuss this with the patient. Recheck base met and CBC in a.m.
[2017-11-16] MEDS: Sevelamer Carbonate 800 MG TAB PO SCH ×3 (09:48→21:41)
[2017-11-16] MEDS: Carvedilol 6.25 MG TAB PO SCH ×2 (09:48→21:36)
[2017-11-16] MEDS: Enoxaparin Sodium 30 MG/0.3 ML SYRINGE SC SCH (09:49)
[2017-11-16] MEDS ORDERED: Heparin 10,000 UNITS/ 10 ML VIAL ONE (11:00)
[2017-11-16] MEDS: Dextrose 10% in Water 1,000 ML IV SCH (12:45)
--- NOTE | 2017-11-16 14:46 | PDOC.PN ---
- Subjective Encounter Start Date: 11/16/17 Encounter Start Time: 11:00 Patient is seen today, alert and oriented, He is For Dialysis, he had episode of hypoglycemia last night with Levemir of 35 units. - Objective Resuscitation Status: Resuscitation Status FULL:Full Resuscitation MAR Reviewed: Yes Vital Signs & Weight: Vital Signs (12 hours) Temp Pulse Pulse Pulse Resp BP BP 11/16/17 10:26 51 L 54 L 132/76 11/16/17 09:48 184/81 H 11/16/17 08:35 97.5 F L 51 L 16 11/16/17 08:00 97.5 F L 51 L 16 11/16/17 04:00 97.7 F 59 L 18 BP BP Pulse Ox 11/16/17 10:26 127/77 11/16/17 09:48 11/16/17 08:35 184/81 H 100 11/16/17 08:00 100 11/16/17 04:00 162/77 H 96 Weight Admit Weight 166 lb 9 oz Weight 167 lb 12.8 oz I&O: 11/15/17 11/16/17 11/17/17 06:59 06:59 06:59 Intake Total 480 Output Total 325 200 Balance -325 280 Result Diagrams: 11/16/17 04:15 11/16/17 04:15 Additional Labs: Accuchecks 11/16/17 11/16/17 11/16/17 10:50 06:18 05:43 POC Glucose 59 L* 127 H 120 H 11/16/17 11/15/17 11/15/17 05:35 20:39 16:47 POC Glucose Less than 35 L* 141 H 422 H Radiology Reviewed by me: Yes Phys Exam - Physical Examination HEENT: PERRLA, moist MMs Neck: no nodes, no JVD Respiratory: no wheezing, no rales Cardiovascular: RRR, no significant murmur Gastrointestinal: soft, non-tender Musculoskeletal: no edema, pulses present Neurological: non-focal, normal sensation Psychiatric: normal affect, A&O x 3 Dx/Plan (1) Hypoglycemia associated with type 2 diabetes mellitus Code(s): E11.649 - TYPE 2 DIABETES MELLITUS WITH HYPOGLYCEMIA WITHOUT COMA Status: Acute Comment: Will reduce levemir to 5 untis, will continue with D10 at 50ml/hr till his HD today. (2) ESRD (end stage renal disease) on dialysis Code(s): N18.6 - END STAGE RENAL DISEASE; Z99.2 - DEPENDENCE ON RENAL DIALYSIS Status: Chronic Comment: HD per Renal service, completed 2 sessions without complication (3) NSTEMI (non-ST elevated myocardial infarction) Code(s): I21.4 - NON-ST ELEVATION (NSTEMI) MYOCARDIAL INFARCTION Status: Resolved Comment: Aspirin/ BB, will closley monitor,no chest pain. - Plan cont current plan of care, PT/OT, respiratory therapy, incentive spirometry, out of bed/ambulate, DVT proph w/lovenox * . - Discharge Day Encounter end time: 11:35 Review of Systems - Review of Systems Eyes: negative: Pain, Vision Change, Conjunctivae Inflammation, Eyelid Inflammation, Redness, Other ENT: negative: Ear Pain, Ear Discharge, Nose Pain, Nose Discharge, Nose Congestion, Mouth Pain, Mouth Swelling, Throat Pain, Throat Swelling, Other Respiratory: negative: Cough, Dry, Shortness of Breath, Hemoptysis, SOB with Excertion, Pleuritic Pain, Sputum, Wheezing Cardiovascular: negative: chest pain, palpitations, orthopnea, paroxysmal nocturnal dyspnea, edema, light headedness, other Gastrointestinal: negative: Nausea, Vomiting, Abdominal Pain, Diarrhea, Constipation, Melena, Hematochezia, Other Musculoskeletal: negative: Neck Pain, Shoulder Pain, Arm Pain, Back Pain, Hand Pain, Leg Pain, Foot Pain, Other Skin: negative: Rash, Lesions, Thony, Bruising, Other - Medications/Allergies Allergies/Adverse Reactions: Allergies Allergy/AdvReac Type Severity Reaction Status Date / Time No Known Allergies Allergy Verified 11/02/17 03:41 Medications: Current Medications Hydrocodone Bitart/Acetaminophen ([place] 5/325) 1 tab PO Q4H PRN PRN Reason: Moderate Pain (4-6) Aspirin (Aspirin Chewable) 81 mg PO DAILY [facility] Last Admin: 11/16/17 09:48 Dose: 81 mg Carvedilol (Coreg) 12.5 mg PO BID [facility] Last Admin: 11/16/17 09:48 Dose: 12.5 mg Dextrose/Water (Dextrose 50%) 25 gm SLOW IVP PRN PRN PRN Reason: Hypoglycemia Last Admin: 11/16/17 05:45 Dose: 25 gm Enoxaparin Sodium (Lovenox) 30 mg SC 0900 [facility] Last Admin: 11/16/17 09:49 Dose: 30 mg Epoetin Isaiah (Procrit) 7,500 units SC Q7D [facility] Last Admin: 11/16/17 10:27 Dose: 7,500 units Glucagon (Glucagon) 1 mg IM PRN PRN PRN Reason: Hypoglycemia Dextrose/Water (D5w) 1,000 mls @ 0 mls/hr IV .Q0M PRN; As Directed PRN Reason: Hypoglycemia Dextrose/Water (Dextrose 10% In Water) 1,000 mls @ 50 mls/hr IV .Q20H [facility] Last Admin: 11/16/17 12:45 Dose: 1,000 mls Insulin Human Lispro (Humalog) 0 units SC .AGGRESSIVE SLIDING PRN PRN Reason: Aggressive Correctional Scale Last Admin: 11/15/17 17:47 Dose: 13 unit Insulin Human Lispro (Humalog) 0 units SC .BEDTIME SLIDING SC PRN PRN Reason: Bedtime Correctional Scale Melatonin (Melatonin) 3 mg PO [facility] Last Admin: 11/15/17 21:04 Dose: 3 mg Sevelamer Carbonate (Renvela) 800 mg PO TID-[facility] Last Admin: 11/16/17 13:28 Dose: 800 mg
[2017-11-16] MEDS: Melatonin 3 MG TAB PO SCH (21:21)
[2017-11-16] MEDS: HumaLOG 300 UNITS/3 ML VIAL SC PRN (21:31)
[2017-11-17] MEDS: HumaLOG 300 UNITS/3 ML VIAL SC PRN ×2 (04:13→13:52)
[2017-11-17 05:11] LABS: #Basophils 0.1 thou/uL (0.0-0.2); #Eosinphils 0.1 thou/uL (0.0-0.7); #Lymphocytes 1.7 thou/uL (1.20-3.40); #Monocytes 0.3 thou/uL (0.11-0.59); %Basophils 1.4 % (0.0-1.0); %Eosinophils 0.8 % (0.0-10.0); %Lymphocytes 23.9 % (21.0-51.0); %Monocytes 4.5 % (0.0-10.0); %Neutrophils 69.4 % (42.0-75.0); Hemoglobin 9.8 g/dL (14.0-18.0); Mean Corpuscular HGB CONC 32.7 g/dL (32.0-36.0); Mean Corpuscular Hemoglobin 32.3 pg (27.0-31.0); Mean Corpuscular Volume 98.7 fl (80.0-94.0); Mean Platelet Volume 7.4 fL (7.4-10.4); Platelet Count 215 thou/uL (130-400); Red Blood Cell (RBC) Count 3.04 mill/uL (4.70-6.10); White Blood Cell (WBC) Count 7.2 thou/uL (4.8-10.8)
[2017-11-17 05:27] LABS: Anion Gap 12 mmol/L (10-20); BUN (Urea Nitrogen) 32 mg/dL (8.4-25.7); Calc. Creatinine Clearance 20 mL/min (70-130); Calcium 7.6 mg/dL (7.8-10.44); Carbon Dioxide 27 mmol/L (23-31); Chloride 97 mmol/L (98-107); Estimated GFR-MDRD 15; Glucose 423 mg/dL (80-115); Sodium 132 mmol/L (136-145)
[2017-11-17] MEDS: Dextrose 10% in Water 1,000 ML IV SCH (07:50)
[2017-11-17] MEDS: Enoxaparin Sodium 30 MG/0.3 ML SYRINGE SC SCH (07:55)
[2017-11-17] MEDS: Carvedilol 6.25 MG TAB PO SCH ×2 (07:56→20:40)
[2017-11-17] MEDS: Sevelamer Carbonate 800 MG TAB PO SCH ×3 (07:56→16:35)
--- NOTE | 2017-11-17 11:42 | PDOC.PN ---
- Subjective Encounter Start Date: 11/17/17 Encounter Start Time: 11:30 Subjective: f/u for hyperglycemia, gen weakness and DM. Overall feeling better -: but glucose labile. Tx with D10 IVF until 24h prior now off. HD completed -: 11/16/17 without complication. Feels weak. - Objective Resuscitation Status: Resuscitation Status FULL:Full Resuscitation MAR Reviewed: Yes Vital Signs & Weight: Vital Signs (12 hours) Temp Pulse Resp BP BP Pulse Ox 11/17/17 10:53 97.7 F 70 20 110/64 95 11/17/17 08:00 98.0 F 73 20 96/56 L 97 11/17/17 07:56 100/59 L 11/17/17 04:00 98.5 F 73 18 127/66 93 L 11/16/17 23:49 98.8 F 76 18 96/62 96 Weight Admit Weight 166 lb 9 oz Weight 166 lb 0.129 oz I&O: 11/16/17 11/17/17 11/18/17 06:59 06:59 06:59 Intake Total 480 800 240 Output Total 200 Balance 280 800 240 Result Diagrams: 11/17/17 04:46 11/17/17 04:46 Additional Labs: Accuchecks 11/17/17 11/17/17 11/17/17 10:09 07:56 06:22 POC Glucose 129 H 183 H 279 H 11/17/17 11/17/17 11/16/17 04:10 01:58 23:10 POC Glucose 411 H 314 H 345 H 11/16/17 11/16/17 20:52 16:27 POC Glucose 335 H 202 H Phys Exam - Physical Examination Constitutional: NAD alert, talkative HEENT: PERRLA, moist MMs, sclera anicteric, oral pharynx no lesions Neck: no nodes, no JVD, supple Respiratory: no wheezing, no rales, no rhonchi, clear to auscultation bilateral Cardiovascular: RRR, no significant murmur, no rub, gallop Gastrointestinal: soft, non-tender, no distention, positive bowel sounds RUE with AV fistula Musculoskeletal: no edema, pulses present Neurological: non-focal, normal sensation, moves all 4 limbs Psychiatric: normal affect, A&O x 3 Skin: no rash, normal turgor, cap refill <2 seconds Dx/Plan (1) Hypoglycemia associated with type 2 diabetes mellitus Code(s): E11.649 - TYPE 2 DIABETES MELLITUS WITH HYPOGLYCEMIA WITHOUT COMA Status: Acute Comment: Detemir 5u sc daily, ISS, d/c D10 IVF (2) Generalized weakness Code(s): R53.1 - WEAKNESS Status: Chronic Comment: Walking program, PT, fall risk precautions (3) Physical deconditioning Code(s): R53.81 - OTHER MALAISE Status: Acute Comment: See above, may benefit from home PT program (4) Toxic metabolic encephalopathy Code(s): G92 - TOXIC ENCEPHALOPATHY Status: Acute Comment: Multifactorial, improved with correction of metabolic process (5) ESRD (end stage renal disease) on dialysis Code(s): N18.6 - END STAGE RENAL DISEASE; Z99.2 - DEPENDENCE ON RENAL DIALYSIS Status: Chronic Comment: HD per Renal service, plan for HD in am 11/18/17 - Plan PT/OT, social science analyst, out of bed/ambulate, DVT proph w/SCDs Stable overall -: Detemir 5u sc daily -: D/C D10 IVF -: PT and Walking Program for mobilization -: HD in am 11/18/17 * Likely home in 24h
--- NOTE | 2017-11-17 15:13 | PQF ---
MONIQUE UREÑA GERBER ESCAMILLA DO [id number] CLINICAL DOCUMENTATION IMPROVEMENT CLARIFICATION FORM: ICD-10 Updated PLEASE DO AN ADDENDUM TO THE PROGRESS NOTE WITH ANY DOCUMENTATION UPDATES OR ADDITIONS AND CARRY THROUGH TO DC SUMMARY. THANK YOU. DATE: 11-17-17 ATTN: DR. ESCAMILLA Please exercise your independent, professional judgment in responding to the clarification form. Clinical indicators are provided on the bottom of this form for your review Please check appropriate box(s) to clarify if the following diagnosis has been ruled in or ruled out: NSTEMI [ ] Ruled in diagnosis [ ] Continue to treat [ ] Resolved [ x ] Ruled out diagnosis [ ] Cannot rule out diagnosis [ ] Other diagnosis [ ] Unable to determine For continuity of documentation, please document condition throughout progress notes and discharge summary. Thank You. CLINICAL INDICATORS - SIGNS / SYMPTOMS / LABS H&P: NSTEMI ELEVATED TROPONIN, MOST LIKELY THIS COULD BE RENAL RETENTION OF THE TROPONINS. NO EVIDENCE OF ANY CP WAS NOTED. LABS: TROP I - @ 1902 0.114 - @ 2206 0.125 - @ 0056 0.107 RISK FACTORS H&P: IDDM TYPE 2 W/ HYPERGLYCEMIA; ESRD; HTN TREATMENTS H&P: CONTINUE ASPIRIN AND BETA ALICJA THANK YOU, SHANNON (This form is maintained as a part of the permanent medical record) 2014 [employer]. All Rights Reserved Shannon Montemayor RN, BS [email or web address] [facility]
[2017-11-17] MEDS: Melatonin 3 MG TAB PO SCH (20:40)
[2017-11-18] MEDS: HumaLOG 300 UNITS/3 ML VIAL SC PRN ×3 (01:05→14:36)
[2017-11-18] MEDS: Sevelamer Carbonate 800 MG TAB PO SCH ×3 (07:57→18:16)
[2017-11-18] MEDS: Carvedilol 6.25 MG TAB PO SCH ×3 (08:32→20:15)
[2017-11-18 09:18] LABS: Anion Gap 18 mmol/L (10-20); BUN (Urea Nitrogen) 41 mg/dL (8.4-25.7); Calc. Creatinine Clearance 16 mL/min (70-130); Calcium 7.9 mg/dL (7.8-10.44); Carbon Dioxide 21 mmol/L (23-31); Chloride 96 mmol/L (98-107); Estimated GFR-MDRD 11; Glucose 268 mg/dL (80-115); Potassium 4.1 mmol/L (3.5-5.1); Sodium 131 mmol/L (136-145)
[2017-11-18] MEDS: Insulin Detemir 100 UNITS/ML 5 UNITS in Pre-Filled Syringe 1 EACH SC SCH ×2 (09:39→14:32)
[2017-11-18] MEDS: Enoxaparin Sodium 30 MG/0.3 ML SYRINGE SC SCH (09:39)
--- NOTE | 2017-11-18 10:00 | PRG ---
DATE OF SERVICE: 11/18/2017 RENAL MEDICINE SUBJECTIVE: Mr. Hooks is a 62-year-old white male with ESRD and was admitted for hyperglycemia. Hi s sugar is doing better. He is currently undergoing dialysis. I am at the bedside supervising his d ialysis. He is tolerating the said treatment. PHYSICAL EXAMINATION: VITAL SIGNS: Blood pressure is 151/81, heart rate 66, respiratory rate 16, temperature 98.4, pulse o x 97%. GENERAL: Awake, alert, comfortable, not in distress. SKIN: Adequate turgor. HEENT: He has slightly pale conjunctivae, anicteric sclerae. NECK: No neck mass, no carotid bruits, no JVD. CHEST: No deformities. LUNGS: Clear breath sounds, no wheezing, no crackles. HEART: Normal sinus rhythm. No murmurs, no gallops, no rubs. ABDOMEN: Globular, soft, nontender. No masses. EXTREMITIES: No edema, no deformities. MEDICATIONS: Medications of 11/18/2017 reviewed. LABORATORY DATA: Laboratories of 11/17/2017, hemoglobin 9.8. On 11/18/2017, glucose is 228. On , BUN 32, creatinine 4.08, potassium 4. ASSESSMENT AND PLAN: 1. End-stage renal disease, stable. Tolerating current hemodialysis regimen. Fluid removal only as tolerated. Continue current Thursday, Thursday, and Thursday dialysis. 2. Anemia, continuing weekly Epogen. 3. Hyperglycemia/diabetes mellitus - much improved. Continue current insulin regimen. I had a long discussion with this patient and he is quite concerned that he could not go home and nessa l be taking care of himself. Social work consult/case management consult for usp facilit y placement will be done. Agree with current management.
[2017-11-18 13:05] VITALS: BMI 24.3
--- NOTE | 2017-11-18 14:22 | PDOC.PN ---
- Subjective Encounter Start Date: 11/18/17 Encounter Start Time: 08:20 Pt seen for followup re: physical deconditioning. Reports generalized weakness. No chest pain, shortness of breath, fevers or chills. - Objective Resuscitation Status: Resuscitation Status FULL:Full Resuscitation MAR Reviewed: Yes Vital Signs & Weight: Vital Signs (12 hours) Temp Pulse Resp BP BP Pulse Ox 11/18/17 08:32 140/86 11/18/17 08:00 98.4 F 66 16 11/18/17 07:50 98.4 F 66 16 151/81 H 97 Weight Admit Weight 166 lb 9 oz Weight 169 lb 5.04 oz I&O: 11/17/17 11/18/17 11/19/17 06:59 06:59 06:59 Intake Total 800 890 240 Balance 800 890 240 Result Diagrams: 11/17/17 04:46 11/18/17 08:40 Additional Labs: Accuchecks 11/18/17 11/18/17 11/18/17 07:58 02:16 00:23 POC Glucose 228 H 291 H 294 H 11/17/17 11/17/17 11/17/17 19:57 17:50 16:07 POC Glucose 100 82 191 H Phys Exam - Physical Examination Constitutional: NAD HEENT: moist MMs, sclera anicteric, oral pharynx no lesions, 2+ tonsils Neck: no nodes, no JVD, supple, full ROM Respiratory: no wheezing, no rales, no rhonchi, clear to auscultation bilateral Cardiovascular: RRR, no rub Gastrointestinal: soft, non-tender, no distention, positive bowel sounds Neurological: moves all 4 limbs Psychiatric: normal affect Dx/Plan (1) Physical deconditioning Code(s): R53.81 - OTHER MALAISE Status: Acute Comment: Nephrology requested Case management to look into SNU (2) Generalized weakness Code(s): R53.1 - WEAKNESS Status: Chronic Comment: Walking program, PT (3) ESRD (end stage renal disease) on dialysis Code(s): N18.6 - END STAGE RENAL DISEASE; Z99.2 - DEPENDENCE ON RENAL DIALYSIS Status: Chronic Comment: Dialysis per nephrology service (4) Hypoglycemia associated with type 2 diabetes mellitus Code(s): E11.649 - TYPE 2 DIABETES MELLITUS WITH HYPOGLYCEMIA WITHOUT COMA Status: Resolved Comment: levemir dose decreased to 5 units daily - Plan * . Review of Systems - Review of Systems Constitutional: weakness. negative: fever, chills, sweats, malaise Respiratory: negative: Cough, Shortness of Breath, SOB with Excertion, Pleuritic Pain, Wheezing Cardiovascular: negative: chest pain, palpitations, orthopnea, paroxysmal nocturnal dyspnea, edema, light headedness Gastrointestinal: negative: Nausea, Vomiting, Abdominal Pain, Diarrhea, Constipation, Melena, Hematochezia Genitourinary: negative: Dysuria, Frequency, Incontinence, Hematuria, Retention - Medications/Allergies Allergies/Adverse Reactions: Allergies Allergy/AdvReac Type Severity Reaction Status Date / Time No Known Allergies Allergy Verified 11/02/17 03:41 Medications: Current Medications Hydrocodone Bitart/Acetaminophen ([place] 5/325) 1 tab PO Q4H PRN PRN Reason: Moderate Pain (4-6) Aspirin (Aspirin Chewable) 81 mg PO DAILY [facility] Last Admin: 11/18/17 08:00 Dose: 81 mg Carvedilol (Coreg) 12.5 mg PO BID [facility] Last Admin: 11/18/17 08:32 Dose: Not Given Dextrose/Water (Dextrose 50%) 25 gm SLOW IVP PRN PRN PRN Reason: Hypoglycemia Last Admin: 11/16/17 05:45 Dose: 25 gm Epoetin Isaiah (Procrit) 7,500 units SC Q7D [facility] Last Admin: 11/16/17 10:27 Dose: 7,500 units Glucagon (Glucagon) 1 mg IM PRN PRN PRN Reason: Hypoglycemia Heparin Sodium (Porcine) (Heparin) 5,000 units SC TID [facility] Dextrose/Water (D5w) 1,000 mls @ 0 mls/hr IV .Q0M PRN; As Directed PRN Reason: Hypoglycemia Insulin Detemir 5 units/ (Miscellaneous Medication) 0.05 mls @ 0 mls/hr SC QAM [facility] Last Admin: 11/18/17 09:39 Dose: Not Given Insulin Human Lispro (Humalog) 0 units SC .AGGRESSIVE SLIDING PRN PRN Reason: Aggressive Correctional Scale Last Admin: 11/18/17 08:02 Dose: 6 unit Insulin Human Lispro (Humalog) 0 units SC .BEDTIME SLIDING SC PRN PRN Reason: Bedtime Correctional Scale Last Admin: 11/18/17 01:05 Dose: 3 unit Melatonin (Melatonin) 3 mg PO HS ZAC Last Admin: 11/17/17 20:40 Dose: 3 mg Sevelamer Carbonate (Renvela) 800 mg PO TID- ZAC Last Admin: 11/18/17 07:57 Dose: 800 mg
[2017-11-18] MEDS: Heparin 5,000 UNITS/ML VIAL SC SCH ×3 (14:30→20:16)
[2017-11-18] MEDS: Melatonin 3 MG TAB PO SCH (20:16)
[2017-11-19] MEDS: HumaLOG 300 UNITS/3 ML VIAL SC PRN (06:02)
[2017-11-19] MEDS: Carvedilol 6.25 MG TAB PO SCH (08:15)
[2017-11-19] MEDS: Sevelamer Carbonate 800 MG TAB PO SCH ×2 (08:15→11:42)
[2017-11-19] MEDS: Heparin 5,000 UNITS/ML VIAL SC SCH ×2 (08:16→14:57)
[2017-11-19] MEDS: Insulin Detemir 100 UNITS/ML 5 UNITS in Pre-Filled Syringe 1 EACH SC SCH (09:33)
--- NOTE | 2017-11-19 10:08 | PRG ---
DATE OF SERVICE: 11/19/2017 Mr. Hooks is a 62-year-old white male with ESRD and admitted for hyperglycemia. He has received regular hemodialysis. He is tolerating said treatment. The issue with this patient is that he may not be able to take care of himself at home. For that reason, community case manager was [place] for a care home facility placement. We are awaiting placement at the present time. He tel ls me he is a little better, but he is still weak. PHYSICAL EXAMINATION: VITAL SIGNS: Blood pressure 157/82, heart rate 66, respiratory rate 16, temperature 98.2, pulse ox 9 9%. GENERAL: Noted to be awake, supine, comfortable, not in overt distress. SKIN: Adequate turgor. HEENT: Slightly pale conjunctivae, anicteric sclerae. NECK: No neck mass, no carotid bruits, no JVD. CHEST: No deformities. LUNGS: Clear breath sounds. No wheezing, no crackles. HEART: Normal sinus rhythm. No murmur, no gallops, no rubs. ABDOMEN: Globular, soft, nontender, no masses. EXTREMITIES: No edema, no deformities. MEDICATIONS: 11/19/2017 - Reviewed. LABORATORY: 11/17/2017 - White count 7.2, hemoglobin 9.8. 11/19/2017 - Glucose 220. ASSESSMENT AND PLAN: 1. End-stage renal disease, stable. Continue current hemodialysis regimen. Again, fluid removal on ly as tolerated. 2. Anemia, continuing weekly Epogen. 3. Hyperglycemia/diabetes mellitus, much improved. Continue current insulin regimen. Awaiting care home facility placement.
[2017-11-19] MEDS ORDERED: Acetaminophen/Codeine 30-300mg Tablet PO PRN (11:57)
[2017-11-19] MEDS ORDERED: Loperamide HCl 2 MG CAP PO PRN (14:27)
[2017-11-19] MEDS ORDERED: Loperamide HCl 2 MG CAP PO SCH (14:30)
[2017-11-19 15:02] VITALS: BP 150/75; TEMP 97.4
--- NOTE | 2017-11-19 15:11 | DIS ---
DATE OF ADMISSION: 11/15/2017 DATE OF DISCHARGE: 11/19/2017 PRIMARY CARE PROVIDER: None. DISCHARGE DIAGNOSES: 1. Hypoglycemia. 2. Physical deconditioning. 3. End-stage renal disease, on maintenance hemodialysis. CONDITION OF PATIENT ON THE DAY OF DISCHARGE: Stable. I assessed Mr. Hooks on the day of discharge . He denies any chest pain or shortness of breath. Vital signs are stable. S1 and S2 are heard, re gular. Lungs are clear to auscultation bilaterally. DISCHARGE MEDICATIONS: Coreg 12.5 mg 2 times a day, epoetin 7000 units every week, to be given with dialysis, Levemir insulin 5 units daily, melatonin 3 mg at bedtime, Renvela 800 mg 3 times a day, Tyl enol #3 one tablet every 6 hours as needed, and Humulin R by sliding scale. HOSPITAL COURSE: Mr. Hooks is a pleasant 62-year-old gentleman who was admitted to [facility] on 11/15/2017 following a recent discharge. He was admitted for poor glycemic cont rol. He was initially treated with fluids and insulin. He had hypoglycemic episodes. Subsequently, his insulin dose was decreased. He was also seen by Nephrology Service for maintenance hemodialysis . During this hospitalization, he was deconditioned and he was approved for placement at a skilled nurs ing facility. DISCHARGE DESTINATION: [facility] in [place]. TOTAL AMOUNT OF TIME SPENT COORDINATING THIS DISCHARGE: 33 minutes. Please note that patient had loose stools on the day of discharge. His stool samples were negative f or Escherichia coli, Shiga toxins 1 and 2 as well as for Clostridium difficile toxin and antigen. He did not have elevated fecal lactoferrin. Stool samples were also negative for Giardia antigen and c ryptosporidium antigen.
== END 2017-11-19 16:14 | disposition home or self-care (01) | DRG 637 ==
LOC: ERS 18:40 → 2NO 19:45 → T4-A 11-16 19:10
PROVIDERS: ADMIT Family Medicine; ATTEND Family Medicine
PROC: 5A1D70Z Performance of Urinary Filtration, Intermittent, Less than 6 Hours Per Day (ICD-10-PCS; principal; 2017-11-14)
PROC: 5A1D70Z Performance of Urinary Filtration, Intermittent, Less than 6 Hours Per Day (ICD-10-PCS; 2017-11-14)
DX: E11.65 Type 2 diabetes mellitus with hyperglycemia (principal); N18.6 End stage renal disease; G92 Toxic encephalopathy; J90 Pleural effusion, not elsewhere classified; E11.22 Type 2 diabetes mellitus with diabetic chronic kidney disease; E87.2 Acidosis; I12.0 Hypertensive chronic kidney disease with stage 5 chronic kidney disease or end stage renal disease; D64.9 Anemia, unspecified; E11.649 Type 2 diabetes mellitus with hypoglycemia without coma; Z99.2 Dependence on renal dialysis; Z79.4 Long term (current) use of insulin; Z79.899 Other long term (current) drug therapy
CPT/HCPCS: 36415; 36416; 71045; 71250; 80048; 80053; 82010; 82553; 82805; 83605; 83630; 84484; 85025; 87324; 87328; 87329; 87449; 87899; 90935; 93005; 94760; 96361; 96374; G0257; G8978-GP-CJ; G8979-GP-CJ; G8980-GP-CJ; G8987-GO-CK; G8988-GO-CI; J1644; J1650; J1815; Q4081

== ENCOUNTER 2018-02-01 00:41 | Inpatient (IN) | payer MEDICARE, MEDICAID ==
[2018-02-01 01:25] LABS: CO2 Tension 38.1 mmHg (35.0-45.0); O2 Tension (PaO2) 68.7 mmHg (> 80.0); pH, Arterial 7.28 (7.35-7.45)
[2018-02-01 01:26] LABS: Actual Bicarbonate (HCO3a) 17.5 mEq/L (22-28); Base Excess (BEa) -8.5 mEq/L (-2.0 to +3.0); Hematocrit-ABG 39.4 % (42.0-52.0); Hemoglobin (Hb) 10.1 g/dL (14.0-18.0)
[2018-02-01 01:27] LABS: Analyzer IN Cardio ER; Calcium, Ionized 1.1 mmol/L (1.12-1.30); Puncture Site RFA
[2018-02-01 01:28] LABS: ALV-art Gradient 33.405 (0-20)
[2018-02-01] MEDS ORDERED: Sodium Bicarb 50 MEQ/50 ML Abboject 8.4% SYRINGE ONE (02:09)
[2018-02-01] MEDS ORDERED: Sodium Bicarbonate 2.5 MEQ/5 ML VIAL ONE (02:09)
[2018-02-01 03:04] LABS: ALT (SGPT) 14 U/L (8-55); AST (SGOT) 16 U/L (5-34); Albumin 3.8 g/dL (3.4-4.8); Alkaline Phosphatase 161 U/L (40-150); Anion Gap 26 mmol/L (10-20); BUN (Urea Nitrogen) 90 mg/dL (8.4-25.7); Bilirubin, Total 0.6 mg/dL (0.2-1.2); CK (CPK) 254 U/L (30-200); Calc. Creatinine Clearance 0 mL/min (70-130); Calcium 8.8 mg/dL (7.8-10.44); Carbon Dioxide 16 mmol/L (23-31); Chloride 92 mmol/L (98-107); Estimated GFR-MDRD 8; Globulin 3.1 g/dL (2.4-3.5); Lipase 15 U/L (8-78); Potassium 4.7 mmol/L (3.5-5.1); Protein, Total 6.9 g/dL (5.8-8.1); Sodium 129 mmol/L (136-145)
[2018-02-01 03:07] LABS: Troponin I 0.177 ng/mL (< 0.028)
[2018-02-01 03:08] LABS: Glucose 977 mg/dL (80-115)
[2018-02-01 03:09] LABS: CKMB 10.9 ng/mL (0-6.6)
[2018-02-01] MEDS ORDERED: Insulin Regular 100 units/100 ml in NS IVPB SCH (04:45)
[2018-02-01] MEDS ORDERED: Aspirin 300 MG Suppository ONE (04:53)
[2018-02-01] MEDS ORDERED: Acetaminophen 650 MG Suppository ONE (05:20)
[2018-02-01 06:45] LABS: Lactic Acid 2.2 mmol/L (0.5-2.2)
[2018-02-01] MEDS ORDERED: Prevnar 13-Val Conj/PF 0.5 ML SYRINGE IM ONE (07:45)
--- NOTE | 2018-02-01 09:01 | HP-2 ---
CODE STATUS: FULL CODE. TIME OF EVALUATION: 6:00 a.m. PRIMARY CARE PHYSICIAN: No primary care physician. CHIEF COMPLAINT: Altered mental status. Information has been gathered from the chart, patient is encephalopathic, does not cooperate to inter view. HISTORY OF PRESENT ILLNESS: This is a 62-year-old male patient. The patient was transferred to the hospital due to DKA, the patient presented with acute encephalopathy, very high blood sugar in the ra nge of 1000, patient is a renal patient, unclear when was the last time he got hemodialysis, initiall y potassium was pretty high in the range of 7; however, has come down after insulin drip has been sta rted, symptoms are severe, treated by DKA, no alleviating factors other than medical treatment. Ther e is no clear evidence of any acute infection at this point. REVIEW OF SYSTEMS: I am unable to obtain as the patient is confused. PAST MEDICAL HISTORY: End-stage renal disease, diabetes, hypertension. FAMILY HISTORY: Found in the records. The patient has a history of diabetes. SOCIAL HISTORY: No records of smoking, alcohol or illicit drug use. PAST SURGICAL HISTORY: AV fistula creation in the left arm and tonsillectomy. HOME MEDICATIONS: Found in the records that he received insulin, melatonin, Renvela, Coreg, labetalo l, lisinopril, nifedipine. PHYSICAL EXAMINATION: VITAL SIGNS: On presentation, blood pressure 182/78, heart rate 98, saturation is normal. GENERAL APPEARANCE: The patient is confused, arousable to deep pain and stimulation. HEENT: Eyes: Normal conjunctivae. Very dry mucosa. Anicteric. NECK: No JVD. RESPIRATORY: Bilateral air entry. No rales, no wheezing. Symmetrical expansion. CARDIOVASCULAR: Normal rate, regular rhythm, no murmurs, no gallop, no edema. ABDOMEN: Soft, normal bowel sounds. MUSCULOSKELETAL: Baseline range of motion. SKIN: Warm and intact. No pallor or rash. NEUROLOGIC: Patient is confused, only responds to deep painful stimulation. PSYCHIATRIC: Unable to explore. LABORATORY DATA AND IMAGING: Labs were reviewed. Blood gas was done, pH 7.28 with a pCO2 of 38, pO2 68. Chemistry: Sodium 129, potassium 4.7, chloride 92, carbon dioxide was 16, anion gap 26, BUN 90 , creatinine 7.15, glucose 977. Lactic acid 3, alkaline phosphatase 161. CK 254, troponin 0.177. B eta-natriuretic peptide 9725. CT of the head was reviewed. There are no significant abnormalities r eported on the CT. Chest x-ray was reviewed, seems to have mild congestion. No other significant ab normalities were seen. Official report from radiology is pending. Prior to transfer, EKG was done. The patient has sinus rhythm, possible sinus arrhythmia with prolonged QT. ASSESSMENT AND PLAN: 1. Diabetic ketoacidosis, severe, patient on insulin drip. The patient has received at least 2 lite rs prior to transfer; however, we are limited with fluid due to end-stage renal disease on hemodialys is. We will continue with insulin drip. Patient will need dialysis in the morning. Dr. Juarez is his substation mechanic. 2. Acute encephalopathy, patient's vital signs are within normal limits. However, he is very enceph alopathic, likely secondary to metabolic component and hyperosmolar state. 3. Hyperosmolar state. Patient will receive hydration initially, may need dialysis for further week s of metabolic derangement, we are limiting with IV fluids. Continue insulin. 4. Pseudohyponatremia, corrected sodium 137, we will treat underlying hyperosmolar state. 5. Lactic acidosis of 3.0, likely secondary to diabetic ketoacidosis, we will treat underlying condi tion. 6. End-stage renal disease on hemodialysis. We will need hemodialysis in the morning. Security Analyst is Dr. Juarez. 7. Anion gap metabolic acidosis secondary to kidney failure plus diabetic ketoacidosis, patient will need hemodialysis. 8. Mildly elevated troponin of 0.177, likely secondary to end-stage renal disease, will trend tropon ins, will adjust treatment as needed. 9. Deep venous thrombosis prophylaxis. Critical care time spent in this patient is more than 35 minutes at bedside assessment, to review on the original records, and coordination of care.
--- NOTE | 2018-02-01 09:09 | CON ---
DATE OF CONSULTATION: 02/01/2018 This encompassed 70 minutes of time, of that time greater than 50% of the time was spent with patient , on the patient's unit and/or on the patient's hospital floor. REASON FOR CONSULTATION: DKA. HISTORY OF PRESENT ILLNESS: The patient is unable to give much in the way of history at this time ex cept saying "yes." He was brought to this hospital in transfer from [place] last night where he pr esented with hyperglycemia and found to be in DKA. He received about 4 units of fluid. The fluid mcdaniels s been stopped. He apparently is a dialysis patient. He [facility] He does not appear to be in any distress at this time, but cannot give much in the way of histor y. PAST MEDICAL HISTORY: 1. Type 1 diabetes mellitus. 2. End-stage renal disease. 3. Hypertension. PAST SURGICAL HISTORY: 1. Right arm AV fistula placement. 2. Tonsillectomy. ALLERGIES: None. FAMILY MEDICAL HISTORY: Unknown. SOCIAL HISTORY: Unknown. REVIEW OF SYSTEMS: Cannot obtain secondary to the patient being obtunded. MEDICATIONS PRIOR TO ADMISSION: Lantus insulin, Velphoro, Eliquis and lisinopril. It is not clear t o me why he is taking the Eliquis. PHYSICAL EXAMINATION: VITAL SIGNS: Temperature 99.5, pulse 85, respirations 24, O2 sat 94% on room air, blood pressure 175 /75. GENERAL: He is lying in bed. He is not tachypneic. He is in no distress. His last blood sugar was in the mid 300s. HEENT: Unremarkable. NECK: No adenopathy or JVD, no bruits. LUNGS: Clear without wheezing or rhonchi. CARDIAC: S1, S2 regular, without murmur. ABDOMEN: Soft, nontender, nondistended. No hepatosplenomegaly. EXTREMITIES: No clubbing, cyanosis, or edema. He has a right upper arm AV fistula. LABORATORY DATA: Sodium 129, potassium 4.7, chloride 92, CO2 16, BUN 90, creatinine 7.1, glucose 977 . Lactate 3.0. Troponin 0.017. BNP 9725. ABG; pH 7.28, pCO2 38, pO2 68. CBC presumably was obtained at [place]. The white blood cell count 10.3, hematocrit 40, and platel et count 96. ASSESSMENT: 1. Severe hyperglycemia. 2. End-stage renal disease and I would suspect there may be some degree of noncompliance with hemodi alysis. 3. Encephalopathy. PLAN: 1. He needs dialysis. 2. Continue insulin drip. 3. He is probably euvolemic. 4. Monitor serial chemistries. 5. Check Accu-Cheks every hour.
--- NOTE | 2018-02-01 09:17 | CT ---
PRELIMINARY REPORT/[facility]/EMERGENTY AFTER-HOURS PROCEDURE CT Head Without Intravenous Contrast CLINICAL HISTORY: 62 years old, male; Screening exam; Patient HX: Patient presents for evaluation of hyperglycemia. AMS TECHNIQUE: Axial computed tomography images of the head/brain without intravenous contrast. COMPARISON: No relevant prior studies available. FINDINGS: Brain: Normal. No hemorrhage. No significant white matter disease. No edema. Ventricles: Normal. No ventriculomegaly. Bones/joints: Normal. No acute fracture. Soft tissues: There is RIGHT lateral and posterior scalp swelling. Sinuses: Unremarkable as visualized. No acute sinusitis. Mastoid air cells: Unremarkable as visualized. No mastoid effusion. IMPRESSION: No acute intracranial hemorrhage. Thank you for allowing us to participate in the care of your patient. Dictated and Authenticated by: Neto Palomo MD 02/01/2018 4:21 AM Central Time ([place] & [place]) CT HEAD NONCONTRAST: FINDINGS/IMPRESSION: I agree with the preliminary interpretation provided above. There is no acute intracranial hemorrhage or mass effect. The exam is limited by the degree of patient motion. POS: [facility]
--- NOTE | 2018-02-01 09:46 | RAD ---
PORTABLE CHEST: Date: 02/01/18 COMPARISON: 11/14/17. HISTORY: Respiratory distress. FINDINGS: Heart size appears enlarged. Slightly nodular parenchymal density seen right mid lung field appears t o be related to the minor fissure, slightly less prominent than on the prior examination. There is so me dense nodular density in the left base along the left heart border, also unchanged. There is eleva tion of the right hemidiaphragm. IMPRESSION: Essentially stable exam. POS: [facility]
--- NOTE | 2018-02-01 10:18 | CON ---
DATE OF CONSULTATION: 02/01/2018 HISTORY OF PRESENT ILLNESS: Mr. Hooks is a 62-year-old white male with ESRD and admitted for DKA. Blood sugar was noted to be severely elevated at [facility]. He was transferred here for fur ther management. He has now been started on insulin drip. We are being consulted for his maintenanc e hemodialysis. The patient is due for dialysis today. REVIEW OF SYSTEMS: No chest pain. Positive for generalized malaise. No nausea, no vomiting, no syn copal episode, no productive cough. Decreased appetite. No diarrhea, no constipation, no fever or c hills, no abdominal pain. MEDICATIONS: Currently, on an insulin drip, heparin 5000 units subcu t.i.d., Pepcid 20 mg IV daily. PAST MEDICAL HISTORY: Includes, 1. Status post DKA. 2. Type 2 diabetes mellitus. 3. ESRD from diabetic nephropathy. 4. History of noncompliance. 5. Hypertension. PAST SURGICAL HISTORY: 1. Status post AV fistula placement. 2. Status post cuffed dialysis catheter placement. 3. Status post tonsillectomy. SOCIAL HISTORY: The patient lives in [place], is single, , lives with some of his friends. Oc casional alcohol. No IV drug abuse. Status post blood transfusion. He is a retired [employer]. Edu cation, 1 year college. FAMILY HISTORY: No family history of ESRD. ALLERGIES: None. TRAUMA: None. IMMUNIZATIONS: Up-to-date. HOSPITALIZATION: Please see past medical history. PHYSICAL EXAMINATION: VITAL SIGNS: Blood pressure is 171/75, heart rate 75, respiratory rate 24, temperature 99.5, pulse o x 94%. GENERAL EXAM: Noted to be sleepy, but arousable, not in distress. HEENT: Pinkish conjunctivae, anicteric sclerae. NECK: No neck mass, no carotid bruits, no JVD. CHEST: No deformities. LUNGS: Clear breath sounds, no wheezing, no crackles. HEART: Normal sinus rhythm. No murmur, no gallops, no rubs. ABDOMEN: Globular, soft, nontender. No masses. EXTREMITIES: No edema. LABORATORY DATA: Laboratories of 02/01/2018, sodium 129, potassium 4.7, chloride 92, carbon dioxide 16, BUN 90, creatinine 7.15, glucose 977, calcium 8.8. Lactic acid 2.2. Repeat glucose 511. Tropon in I 0.177. BNP 9725. ASSESSMENT AND PLAN: 1. Diabetic ketoacidosis - currently on insulin drip. My concern is that this patient may have some issues with his insulin regimen. 2. End-stage renal disease. Patient has been scheduled for hemodialysis today. My plan is to do a 4-hour hemodialysis with this patient with fluid removal only as tolerated. 3. Decreased mentation - CAT scan of the head was done, which showed no acute intracranial hemorrhag e. 4. Chest x-ray shows increased lung markings. Overall, agree with current management. I have discussed the case with the dialysis nurse and we nessa l proceed with this dialytic regimen today.
[2018-02-01 10:46] LABS: Anion Gap 24 mmol/L (10-20); BUN (Urea Nitrogen) 98 mg/dL (8.4-25.7); Calc. Creatinine Clearance 11 mL/min (70-130); Calcium 8.8 mg/dL (7.8-10.44); Carbon Dioxide 18 mmol/L (23-31); Chloride 97 mmol/L (98-107); Estimated GFR-MDRD 7; Glucose 249 mg/dL (80-115); Potassium 4.1 mmol/L (3.5-5.1); Sodium 135 mmol/L (136-145)
[2018-02-01] MEDS: Heparin 5,000 UNITS/ML VIAL SC SCH ×3 (11:41→21:23)
[2018-02-01] MEDS: Famotidine/PF 20 mg/2ml Vial SLOW IVP SCH (11:41)
[2018-02-01] MEDS ORDERED: Dextrose 50% Abboject 50 ML SYRINGE ONE (13:03)
[2018-02-01] MEDS ORDERED: Dextrose 5% in Water 1,000 ML IV PRN (13:26)
[2018-02-01] MEDS: Dextrose 50% Abboject 50 ML SYRINGE SLOW IVP PRN (15:08)
[2018-02-01 15:14] LABS: Anion Gap 16 mmol/L (10-20); BUN (Urea Nitrogen) 65 mg/dL (8.4-25.7); Calc. Creatinine Clearance 16 mL/min (70-130); Calcium 8.5 mg/dL (7.8-10.44); Carbon Dioxide 24 mmol/L (23-31); Chloride 100 mmol/L (98-107); Estimated GFR-MDRD 11; Glucose 65 mg/dL (80-115); Potassium 3.7 mmol/L (3.5-5.1); Sodium 136 mmol/L (136-145)
--- NOTE | 2018-02-01 16:05 | PDOC.EVN ---
Event Note - Event Note Event Note: h&p reviewed pt seen & examined pt still rather somnolent appearing, opens eyes to verbal stimuli and answers yes/ no although not consistently or reliably seen with IMCU and HD nsg at bedside Pt currently undergoing HD gen: see above, NAD, lying in hospital bed, intermittently follows commands cv: s1, s2, pulses 2+ b/l UE resp: bullock exam by patient participation, no w/r/r, grossly ctab? abd: + bs but decreased, not apparently tender to palpation labs and imaging reviewed A/P ESRD on HD unfortuantely non compliant with treatment regimen apprec nephrology c/s DKA s/p almost 5L IVF from previous institution now intermittently hypoglycemic - suspect 2/2 prolonged effective T1/2 of insulin continue to monitor amps of D50 prn EtOH use persistent and per family, likely active with potential recent increase in intake metabolic encephalopathy, multifactorial with all the above dx as likely contributants to presentation continue to monitor diet: curr NPO 22 mentation activity: fall risk dvt ppx pt is grossly poor prognosis continue to monitor closest living relative is a sister who [place] - she is his only remaining living relative as well
--- NOTE | 2018-02-01 16:06 | PDOC.EVN ---
Event Note - Event Note Event Note: adv care planning dx; esrd on HD, DKA, medication noncompliance, etoh use summary: d/w patient's only living relative, his sister, over phone. She indicated he would want to be a DNR, DNI with comfort measures if he were in pain. This was confirmed over the phone with patient's bedside IMCU nurse. Code status changed to DNR, DNI
[2018-02-01 16:33] LABS: Troponin I 0.268 ng/mL (< 0.028)
[2018-02-01] MEDS ORDERED: Diltiazem 125 MG in Sodium Chloride 0.9% 100 ML IVPB SCH (17:30)
[2018-02-01 17:39] LABS: #Basophils 0.1 thou/uL (0.0-0.2); #Eosinphils 0.3 thou/uL (0.0-0.7); #Lymphocytes 1.6 thou/uL (1.20-3.40); #Monocytes 1.1 thou/uL (0.11-0.59); #Neutrophils 5.8 thou/uL (1.40-6.50); %Basophils 1.4 % (0.0-1.0); %Eosinophils 3.9 % (0.0-10.0); %Lymphocytes 17.8 % (21.0-51.0); %Monocytes 12.5 % (0.0-10.0); %Neutrophils 64.4 % (42.0-75.0); Hemoglobin 11.1 g/dL (14.0-18.0); Mean Corpuscular HGB CONC 33.6 g/dL (32.0-36.0); Mean Corpuscular Hemoglobin 31.6 pg (27.0-31.0); Mean Corpuscular Volume 93.9 fL (78.0-98.0); Mean Platelet Volume 8.4 fL (7.4-10.4); Platelet Count 175 thou/uL (130-400); RBC Distribution Width 14.2 % (11.5-14.5); Red Blood Cell (RBC) Count 3.51 mill/uL (4.70-6.10)
[2018-02-01 17:51] LABS: ALT (SGPT) 11 U/L (8-55); AST (SGOT) 15 U/L (5-34); Albumin 3.3 g/dL (3.4-4.8); Alkaline Phosphatase 89 U/L (40-150); Anion Gap 18 mmol/L (10-20); BUN (Urea Nitrogen) 60 mg/dL (8.4-25.7); Bilirubin, Total 0.6 mg/dL (0.2-1.2); Calc. Creatinine Clearance 16 mL/min (70-130); Calcium 8.9 mg/dL (7.8-10.44); Carbon Dioxide 24 mmol/L (23-31); Chloride 100 mmol/L (98-107); Estimated GFR-MDRD 11; Globulin 2.5 g/dL (2.4-3.5); Glucose 135 mg/dL (80-115); Potassium 4.1 mmol/L (3.5-5.1); Protein, Total 5.8 g/dL (5.8-8.1); Sodium 138 mmol/L (136-145)
[2018-02-01] MEDS ORDERED: Amiodarone HCl 450 MG, Admixture Fee 1 EACH in Dextrose 5% in Water 250 ML IVPB SCH (18:30)
[2018-02-01] MEDS ORDERED: Amiodarone In Dextrose 200 ML IVPB SCH (18:30)
[2018-02-01] MEDS ORDERED: Digoxin 0.5 MG/2 ML AMP SLOW IVP SCH (18:30)
[2018-02-01] MEDS ORDERED: Amiodarone HCl 150 MG in Dextrose 5% in Water 100 ML IVPB SCH (18:30)
[2018-02-01] MEDS: HumaLOG 300 UNITS/3 ML VIAL SC PRN ×2 (21:24→23:11)
[2018-02-01 21:40] LABS: Anion Gap 21 mmol/L (10-20); BUN (Urea Nitrogen) 64 mg/dL (8.4-25.7); Calc. Creatinine Clearance 14 mL/min (70-130); Calcium 8.7 mg/dL (7.8-10.44); Carbon Dioxide 22 mmol/L (23-31); Chloride 97 mmol/L (98-107); Estimated GFR-MDRD 10; Glucose 386 mg/dL (80-115); Potassium 4.7 mmol/L (3.5-5.1); Sodium 135 mmol/L (136-145)
[2018-02-02] MEDS ORDERED: Labetalol HCl 100 MG/20 ML VIAL SLOW IVP PRN (01:35)
--- NOTE | 2018-02-02 02:35 | CON ---
DATE OF CONSULTATION: 02/01/2018 HISTORY OF PRESENT ILLNESS: Evin Hooks is a 62-year-old white male with end- stage renal disease transferred from [facility]. He was sent there for altered mental status. All the exact details are unclear at this time. Apparently, a glucose was over 1000, was given 4 liters of fluid, a potassium of around 7, and it was felt that he had DKA. PAST MEDICAL HISTORY: End-stage renal disease, diabetes, hypertension. MEDICATIONS: Unclear, however, what is listed as carvedilol 12.5 b.i.d., Procrit 7500 q.7 days, insulin, Levemir, Humulin R, melatonin, and Renvela 800 t.i.d. ALLERGIES: None. OPERATIONS: Tonsillectomy and AV fistula placement. SOCIAL HISTORY: Unobtainable. FAMILY HISTORY: Unobtainable. REVIEW OF SYSTEMS: Unobtainable. PHYSICAL EXAMINATION: VITAL SIGNS: Blood pressure 105/98, pulse of 172, atrial fibrillation with fast ventricular response. HEENT: PERRL. NECK: Supple. LUNGS: Chest is clear. CARDIAC: S1, S2 normal without any S3 or S4. There is a 1/6 systolic murmur along the left sternal border. ABDOMEN: Normal bowel sounds without tenderness. EXTREMITIES: Revealed no clubbing, cyanosis, or edema. NEUROLOGIC: The patient is somewhat lethargic, but will answer yes or no to certain questions. SKIN: Warm and dry. LABORATORY DATA: EKG revealed atrial fibrillation with fast ventricular response of 171 per minute, poor R-wave progression possibly due to old anterolateral infarction. A pH of 7.28, pCO2 of 38.1, pO2 of 68.7. Hemoglobin 11.1, hematocrit 33.0, white count 9000, platelets 175,000. Sodium 138, potassium 4.7, chloride 100, carbon dioxide 24, BUN 60, creatinine 5.15. Troponin I 0.268. BNP 9725.2. IMPRESSION: 1. Diabetic ketoacidosis. 2. End-stage renal disease. 3. Diabetes. 4. Hypertension. 5. Paroxysmal atrial fibrillation. He has rates in the 170s, but a few rhythm strips were indeed sinus rhythm. PLAN: The patient has been started on intravenous Cardizem. Also given digoxin 0.5 mg IV to try to slow his rate and also given amiodarone bolus and IV. Echocardiogram will be performed to assess left ventricular function, although he did have an echo in October of this year, which revealed ejection fraction of 55% to 60% with mild concentric left ventricular hypertrophy. I will follow the patient with you. DESMOND
[2018-02-02] MEDS ORDERED: cloNIDine 0.1mg/24 Hour PATCH TD SCH (04:30)
[2018-02-02 04:48] LABS: #Basophils 0.1 thou/uL (0.0-0.2); #Eosinphils 0.3 thou/uL (0.0-0.7); #Lymphocytes 2.1 thou/uL (1.20-3.40); #Monocytes 0.9 thou/uL (0.11-0.59); #Neutrophils 4.7 thou/uL (1.40-6.50); %Basophils 1.2 % (0.0-1.0); %Eosinophils 3.7 % (0.0-10.0); %Lymphocytes 25.6 % (21.0-51.0); %Monocytes 10.8 % (0.0-10.0); %Neutrophils 58.7 % (42.0-75.0); Hemoglobin 10.3 g/dL (14.0-18.0); Mean Corpuscular HGB CONC 33.3 g/dL (32.0-36.0); Mean Corpuscular Hemoglobin 31.3 pg (27.0-31.0); Mean Corpuscular Volume 93.8 fL (78.0-98.0); Mean Platelet Volume 8.4 fL (7.4-10.4); Platelet Count 157 thou/uL (130-400); RBC Distribution Width 14.2 % (11.5-14.5)
[2018-02-02 05:07] LABS: Anion Gap 19 mmol/L (10-20); BUN (Urea Nitrogen) 66 mg/dL (8.4-25.7); Calc. Creatinine Clearance 14 mL/min (70-130); Calcium 8.8 mg/dL (7.8-10.44); Carbon Dioxide 23 mmol/L (23-31); Chloride 100 mmol/L (98-107); Estimated GFR-MDRD 10; Glucose 111 mg/dL (80-115); Potassium 4.3 mmol/L (3.5-5.1); Sodium 138 mmol/L (136-145)
[2018-02-02] MEDS ORDERED: Amiodarone HCl 450 MG, Admixture Fee 1 EACH in Dextrose 5% in Water 250 ML IVPB SCH (08:46)
--- NOTE | 2018-02-02 09:23 | PRG ---
DATE OF SERVICE: 02/02/2018 Mr. Hooks is doing better than yesterday. He is able to answer questions. PHYSICAL EXAMINATION: VITAL SIGNS: Temperature 99.0, pulse 57, respirations 18, O2 sat 97% on room air, blood pressure 185 /77. HEENT: Unremarkable. NECK: No JVD. CHEST: Clear without wheezing. CARDIAC: S1 and S2 regular. ABDOMEN: Soft, nontender. EXTREMITIES: Right upper arm AV shunt is functioning. LABORATORY DATA: White blood cell count 8, hematocrit 31, platelet count 157. Sodium 138, potassium 4.3, chloride 100, CO2 23, BUN 66, creatinine 5.7, glucose 111. ASSESSMENT: 1. Diabetic ketoacidosis. 2. End-stage renal disease requiring hemodialysis. 3. Paroxysmal atrial fibrillation. 4. Suspect medical noncompliance. PLAN: DKA appears to be resolved and the patient can likely transition back to his regular insulin r egimen. I think he can probably be transferred out to the telemetry floor.
--- NOTE | 2018-02-02 09:26 | PRG ---
DATE OF SERVICE: 02/02/2018 SUBJECTIVE: Mr. Hooks is a 62-year-old white male with ESRD and was admitted for DKA. During dialy sis yesterday he developed rapid atrial fibrillation. He has now been placed on IV amiodarone. His heart rate is much improved. The dialysis treatment time was shortened due to the hemodynamic instab ility at that time. We removed about 1 liter. I did examine the patient today. I feel that we can wait until tomorrow for the next dialysis session. His initial chest x-ray did not show any florid p ulmonary edema. No other complaints. OBJECTIVE: VITAL SIGNS: Blood pressure is 185/77, heart rate 57, respiratory rate 18, temperature 99, pulse ox 95%. GENERAL: Noted to be awake, confused, not in overt distress. SKIN: Adequate turgor. HEENT: Pinkish conjunctivae. Anicteric sclerae. NECK: No neck mass, no carotid bruits, no JVD. CHEST: No deformities. LUNGS: Decreased breath sounds. HEART: Normal sinus rhythm. No murmur, no gallops or rubs. ABDOMEN: Globular, soft, nontender, no masses. EXTREMITIES: No edema. MEDICATIONS: 02/02/2018 - Reviewed. LABORATORY DATA: 02/02/2018 - White count 8, hemoglobin 10.3. Sodium 138, potassium 4.3, chloride 1 00, carbon dioxide 23, BUN 66, creatinine 5.73, glucose 111, calcium 8.8. Hemoglobin 10.3. ASSESSMENT AND PLAN: 1. End-stage renal disease, stable. We can hold off dialysis until tomorrow. I will schedule him a 4-hour hemodialysis in a.m. 2. Diabetic ketoacidosis - improving blood sugar. Continue insulin regimen. 3. Atrial fibrillation - rate is now controlled on IV amiodarone and patient was on IV Cardizem. 4. Hypertension. Continue current blood pressure meds. Recheck base met and CBC in a.m.
[2018-02-02] MEDS: Famotidine/PF 20 mg/2ml Vial SLOW IVP SCH (10:19)
[2018-02-02] MEDS: hydrALAZINE 20 MG/ML VIAL SLOW IVP PRN (10:19)
[2018-02-02] MEDS: Amiodarone 200 MG TAB PO SCH ×2 (10:20→20:13)
[2018-02-02] MEDS: Heparin 5,000 UNITS/ML VIAL SC SCH ×3 (10:20→20:15)
[2018-02-02 11:50] VITALS: BMI 23.3
[2018-02-02] MEDS ORDERED: Insulin Glargine 15 UNITS in Pre-Filled Syringe SC SCH (12:15)
[2018-02-02] MEDS ORDERED: HumaLOG 300 UNITS/3 ML VIAL SC SCH (12:45)
--- NOTE | 2018-02-02 12:55 | EKG ---
Test Reason : Blood Pressure : / mmHG Vent. Rate : 171 BPM Atrial Rate : 187 BPM P-R Int : 000 ms QRS Dur : 082 ms QT Int : 276 ms P-R-T Axes : 000 118 -41 degrees QTc Int : 465 ms Atrial fibrillation with rapid ventricular response Anterolateral infarct , age undetermined cannot be excluded Abnormal ECG Confirmed by GENEVA YAO ([id number]) on 02/02/2018 12:55:10 PM Referred By: DAE Confirmed By:GENEVA YAO
[2018-02-02] MEDS ORDERED: Loperamide HCl 2 MG CAP PO PRN (14:40)
[2018-02-02] MEDS ORDERED: Amlodipine 10 MG TAB PO SCH (14:45)
[2018-02-02] MEDS: hydrALAZINE 25 MG TAB PO SCH ×2 (15:11→20:14)
[2018-02-02] MEDS: Carvedilol 3.125 MG TAB PO SCH (16:40)
[2018-02-02] MEDS: HumaLOG 300 UNITS/3 ML VIAL SC SCH (16:41)
[2018-02-02] MEDS: HumaLOG 300 UNITS/3 ML VIAL SC PRN (16:42)
[2018-02-02] MEDS: Ondansetron HCl/PF 4 MG/2 ML Vial IVP PRN (20:25)
[2018-02-03] MEDS: Dextrose 50% Abboject 50 ML SYRINGE SLOW IVP PRN (00:53)
[2018-02-03 04:26] LABS: #Basophils 0.1 thou/uL (0.0-0.2); #Eosinphils 0.3 thou/uL (0.0-0.7); #Lymphocytes 1.4 thou/uL (1.20-3.40); #Monocytes 0.8 thou/uL (0.11-0.59); #Neutrophils 5.5 thou/uL (1.40-6.50); %Basophils 0.8 % (0.0-1.0); %Eosinophils 3.6 % (0.0-10.0); %Lymphocytes 17.6 % (21.0-51.0); %Monocytes 10.3 % (0.0-10.0); %Neutrophils 67.7 % (42.0-75.0); Hemoglobin 10.5 g/dL (14.0-18.0); Mean Corpuscular HGB CONC 33.2 g/dL (32.0-36.0); Mean Corpuscular Hemoglobin 31.4 pg (27.0-31.0); Mean Corpuscular Volume 94.4 fL (78.0-98.0); Mean Platelet Volume 8.7 fL (7.4-10.4); Platelet Count 152 thou/uL (130-400); RBC Distribution Width 14.4 % (11.5-14.5); Red Blood Cell (RBC) Count 3.34 mill/uL (4.70-6.10); White Blood Cell (WBC) Count 8.1 thou/uL (4.8-10.8)
[2018-02-03 04:39] LABS: Anion Gap 22 mmol/L (10-20); BUN (Urea Nitrogen) 79 mg/dL (8.4-25.7); Calc. Creatinine Clearance 11 mL/min (70-130); Calcium 8.5 mg/dL (7.8-10.44); Carbon Dioxide 21 mmol/L (23-31); Chloride 100 mmol/L (98-107); Estimated GFR-MDRD 8; Glucose 77 mg/dL (80-115); Sodium 138 mmol/L (136-145)
[2018-02-03] MEDS: Ondansetron HCl/PF 4 MG/2 ML Vial IVP PRN ×2 (04:52→12:23)
--- NOTE | 2018-02-03 09:27 | PRG ---
DATE OF SERVICE: 02/03/2018 SUBJECTIVE: Mr. Hooks is a 62-year-old white male with ESRD admitted for DKA. Insulin drip was do ne. There was improvement. We attempted dialysis Thursday, but the blood pressure, he became tachycar dic. Cardiac echo has also been done which showed mild concentric left ventricular hypertrophy with normal ejection fraction. No new complaints today. He is wanting to go home. He denies any chest pain, shortness of breath. OBJECTIVE: VITAL SIGNS: Blood pressure 192/88 - before meds, heart rate 65, respiratory rate 28, temperature 96 .8, pulse ox 94%. GENERAL: Awake, alert, comfortable, not in distress. SKIN: Adequate turgor. HEENT: Pinkish conjunctivae, anicteric sclerae. NECK: No neck mass, no carotid bruits, no JVD. CHEST: No deformities. LUNGS: Clear breath sounds, no wheezing, no crackles. HEART: Normal sinus rhythm. No murmur, no gallops. No rubs. ABDOMEN: Globular, soft, nontender. No masses. EXTREMITIES: No edema, no deformities. MEDICATIONS: 02/03/2018 - Reviewed. LABORATORY DATA: 02/03/2018 - White count 8.1, hemoglobin 10.5. Sodium 138, potassium 5, chloride 1 00, carbon dioxide 21, BUN 79, creatinine 7.08, glucose 77, calcium 8.5. ASSESSMENT AND PLAN: 1. Diabetic ketoacidosis, type 2 diabetes mellitus, much improved. Continue current insulin regimen . 2. Paroxysmal atrial fibrillation - rate is much controlled. Currently on anticoagulation. Cardiol ogy is following. 3. End-stage renal disease, stable. We will continue current hemodialysis regimen. Again, fluid re moval only as tolerated by the patient. The patient is requesting to go to [place]. Arrangements ar e being made for placement as an outpatient dialysis. His overall prognosis remains guarded. I agree with current management. Once placement is available in [place] consider discharge.
[2018-02-03] MEDS: Carvedilol 3.125 MG TAB PO SCH ×2 (09:55→16:07)
[2018-02-03] MEDS: Amiodarone 200 MG TAB PO SCH ×2 (09:55→21:01)
[2018-02-03] MEDS: Amlodipine 10 MG TAB PO SCH (09:56)
[2018-02-03] MEDS: hydrALAZINE 25 MG TAB PO SCH ×3 (09:56→21:02)
--- NOTE | 2018-02-03 11:48 | PRG ---
DATE OF SERVICE: 02/03/2018 The patient is still experiencing hypoglycemia at night. This morning I saw him in dialysis. He had no acute complaints. PHYSICAL EXAMINATION: VITAL SIGNS: Temperature is 96.8, pulse 61, respirations 20, O2 96% room air, blood pressure 192/88. HEENT: Unremarkable. NECK: No JVD. CHEST: Clear without wheezing or rhonchi. CARDIAC: S1 and S2 regular. ABDOMEN: Soft. EXTREMITIES: No edema. LABORATORY DATA: White blood cell count 8.1, hematocrit 31.6, platelet count 152. Sodium 138, potas sium 5, chloride 100, CO2 21, BUN 79, creatinine 7.0, glucose 77. Lowest blood sugar I can find tosha rded is 63. ASSESSMENT: 1. Brittle diabetes mellitus with poor control. 2. Status post diabetic ketoacidosis. 3. End-stage renal disease requiring hemodialysis. 4. Paroxysmal atrial fibrillation. RECOMMENDATIONS: This is a difficult situation and may require several days in the hospital to recal ibrate his insulin dose. From my standpoint, he can be moved out to the telemetry floor as he does n ot require intermediate care any longer. There is no acute pulmonary problems so I will sign off.
[2018-02-03] MEDS: hydrALAZINE 20 MG/ML VIAL SLOW IVP PRN ×2 (12:23→18:31)
[2018-02-03 14:13] LABS: ALT (SGPT) 12 U/L (8-55); AST (SGOT) 13 U/L (5-34); Albumin 3.5 g/dL (3.4-4.8); Alkaline Phosphatase 94 U/L (40-150); Bilirubin, Direct 0.2 mg/dL (0.1-0.3); Bilirubin, Total 0.6 mg/dL (0.2-1.2); Protein, Total 6.6 g/dL (5.8-8.1)
[2018-02-03] MEDS: Famotidine/PF 20 mg/2ml Vial SLOW IVP SCH (14:49)
[2018-02-03] MEDS: HumaLOG 300 UNITS/3 ML VIAL SC SCH ×2 (14:49→18:34)
[2018-02-03] MEDS: Apixaban 5 MG TAB PO SCH ×2 (14:49→21:01)
[2018-02-03] MEDS: Folic Acid/Vit B Comp W-C PO SCH (14:50)
[2018-02-03] MEDS: Insulin Glargine 15 UNITS in Pre-Filled Syringe SC SCH (14:51)
[2018-02-03] MEDS ORDERED: Acetaminophen 500 MG TAB PO PRN (18:15)
[2018-02-03] MEDS ORDERED: Tuberculin PPD 0.1 ML VIAL I-DERMAL SCH (18:30)
[2018-02-03] MEDS: HumaLOG 300 UNITS/3 ML VIAL SC PRN (18:30)
[2018-02-04] MEDS: HumaLOG 300 UNITS/3 ML VIAL SC PRN (06:00)
[2018-02-04] MEDS: hydrALAZINE 20 MG/ML VIAL SLOW IVP PRN (06:07)
[2018-02-04] MEDS: hydrALAZINE 25 MG TAB PO SCH ×3 (07:47→20:45)
[2018-02-04] MEDS: Carvedilol 3.125 MG TAB PO SCH ×2 (07:47→16:11)
[2018-02-04] MEDS: Amiodarone 200 MG TAB PO SCH ×2 (07:48→20:52)
[2018-02-04] MEDS: Apixaban 5 MG TAB PO SCH ×2 (07:48→20:44)
[2018-02-04] MEDS: Amlodipine 10 MG TAB PO SCH (07:48)
[2018-02-04] MEDS: Folic Acid/Vit B Comp W-C PO SCH (07:49)
[2018-02-04] MEDS: HumaLOG 300 UNITS/3 ML VIAL SC SCH ×3 (07:49→18:42)
[2018-02-04] MEDS: Famotidine/PF 20 mg/2ml Vial SLOW IVP SCH (07:49)
[2018-02-04] MEDS: Insulin Glargine 15 UNITS in Pre-Filled Syringe SC SCH (07:49)
[2018-02-04] MEDS: Ondansetron HCl/PF 4 MG/2 ML Vial IVP PRN (07:51)
[2018-02-04] MEDS ORDERED: HumaLOG 300 UNITS/3 ML VIAL SC PRN (09:19)
[2018-02-04] MEDS ORDERED: Epoetin (ESRD) 20,000 UNITS/ML SC SCH (09:30)
[2018-02-05 04:27] VITALS: BP 169/76; TEMP 98.7
[2018-02-05 07:52] LABS: #Basophils 0.1 thou/uL (0.0-0.2); #Eosinphils 0.2 thou/uL (0.0-0.7); #Lymphocytes 1.3 thou/uL (1.20-3.40); #Monocytes 0.5 thou/uL (0.11-0.59); #Neutrophils 6.1 thou/uL (1.40-6.50); %Basophils 0.8 % (0.0-1.0); %Eosinophils 2.4 % (0.0-10.0); %Lymphocytes 15.7 % (21.0-51.0); %Monocytes 6.3 % (0.0-10.0); %Neutrophils 74.9 % (42.0-75.0); Hemoglobin 12.7 g/dL (14.0-18.0); Mean Corpuscular HGB CONC 32.9 g/dL (32.0-36.0); Mean Corpuscular Hemoglobin 31.3 pg (27.0-31.0); Mean Platelet Volume 8.6 fL (7.4-10.4); Platelet Count 212 thou/uL (130-400); RBC Distribution Width 14.6 % (11.5-14.5); Red Blood Cell (RBC) Count 4.05 mill/uL (4.70-6.10); White Blood Cell (WBC) Count 8.1 thou/uL (4.8-10.8)
[2018-02-05 08:08] LABS: Albumin 3.5 g/dL (3.4-4.8); Anion Gap 17 mmol/L (10-20); BUN (Urea Nitrogen) 53 mg/dL (8.4-25.7); BUN/Creatinine Ratio 8.62; Calc. Creatinine Clearance 13 mL/min (70-130); Carbon Dioxide 25 mmol/L (23-31); Chloride 95 mmol/L (98-107); Estimated GFR-MDRD 9; Glucose 447 mg/dL (80-115); Phosphorus 7.7 mg/dL (2.3-4.7); Potassium 5.4 mmol/L (3.5-5.1); Sodium 132 mmol/L (136-145)
[2018-02-05] MEDS: hydrALAZINE 25 MG TAB PO SCH ×2 (08:39→13:20)
[2018-02-05] MEDS: HumaLOG 300 UNITS/3 ML VIAL SC SCH ×3 (08:39→13:19)
[2018-02-05] MEDS: Insulin Glargine 15 UNITS in Pre-Filled Syringe SC SCH ×2 (08:40→09:51)
[2018-02-05] MEDS: Famotidine/PF 20 mg/2ml Vial SLOW IVP SCH (09:00)
--- NOTE | 2018-02-05 10:26 | PRG ---
DATE OF SERVICE: 02/05/2018 SUBJECTIVE: Mr. Hooks is a 62-year-old white male with known history of ESRD and currently undergoi ng dialysis. I am at the bedside supervising his dialysis. He was recently admitted for DKA. His b lood sugar is much improved. He has no other complaints today, no chest pain or shortness of breath. OBJECTIVE: VITAL SIGNS: Blood pressure 169/76, heart rate 61, respiratory rate 18, temperature 98.7, pulse ox 9 7%. GENERAL: Noted to be awake, alert, comfortable, not in distress. SKIN: Adequate turgor. HEENT: Pinkish conjunctivae, anicteric sclerae. NECK: No neck mass, no carotid bruits, no JVD. CHEST: No deformities. LUNGS: Clear breath sounds. No wheezing, no crackles. HEART: Normal sinus rhythm. No murmur, no gallops or rubs. ABDOMEN: Globular, soft, nontender, no masses. EXTREMITIES: No edema, no deformities. MEDICATIONS: 02/05/2018 - Reviewed. LABORATORY DATA: 02/05/2018 - White count 8.1, hemoglobin 12.7, sodium 132, potassium 5.4, chloride 95, carbon dioxide 25, BUN 53, creatinine 6.15, phosphorus 7.7. ASSESSMENT AND PLAN: 1. Hyperphosphatemia, restart Renvela 800 mg 1 tab t.i.d. with meals. 2. End-stage renal disease, stable. Continue current hemodialysis regimen of Thursday, Thursday, Thu day. Again, fluid removal as tolerated. 3. Diabetic ketoacidosis - much improved, clinically on an insulin regimen. The patient will be moving back to [place] from [place]. Arrangements are being made by the case man sharad.
[2018-02-05 11:16] LABS: HBCM Index 0.09 S/CO (0-0.79); HBSAg Index 0.13 S/CO (0-0.99); Hep B Core Total Ab Non-Reactive (NonReactive); Hep B Core Total Index 0.06 S/CO (0-0.79); Hep B Surf Ag Non-Reactive S/CO (NonReactive); Hep C IgG Ab Non-Reactive (NonReactive); Hep C Index 0.19 S/CO (0-0.79); Hepatitis B Core IGM Abs Non-Reactive (NonReactive)
[2018-02-05 12:31] LABS: Hep B Surf AB Reactive (NonReactive)
[2018-02-05 12:32] LABS: HBSAB Concentration 16.03 mIU/mL
[2018-02-05] MEDS: Folic Acid/Vit B Comp W-C PO SCH (13:19)
[2018-02-05] MEDS: Amiodarone 200 MG TAB PO SCH (13:19)
[2018-02-05] MEDS: Amlodipine 10 MG TAB PO SCH (13:19)
[2018-02-05] MEDS: Apixaban 5 MG TAB PO SCH (13:20)
[2018-02-05] MEDS: Carvedilol 3.125 MG TAB PO SCH (13:20)
[2018-02-06] MEDS ORDERED: READ PPD TEST SITE PO SCH (09:00)
== END 2018-02-05 14:20 | disposition home or self-care (01) | DRG 637 ==
LOC: ERS 00:41 → IMCU/EMU 04:42
PROVIDERS: ADMIT Hospitalist; ATTEND Hospitalist
PROC: 5A1D70Z Performance of Urinary Filtration, Intermittent, Less than 6 Hours Per Day (ICD-10-PCS; principal; 2018-02-01)
DX: E11.10 Type 2 diabetes mellitus with ketoacidosis without coma (principal); N18.6 End stage renal disease; G93.41 Metabolic encephalopathy; I12.0 Hypertensive chronic kidney disease with stage 5 chronic kidney disease or end stage renal disease; E87.2 Acidosis; E83.39 Other disorders of phosphorus metabolism; I48.0 Paroxysmal atrial fibrillation; E11.22 Type 2 diabetes mellitus with diabetic chronic kidney disease; Z66 Do not resuscitate; F10.10 Alcohol abuse, uncomplicated; Y90.9 Presence of alcohol in blood, level not specified; Z99.2 Dependence on renal dialysis; Z79.01 Long term (current) use of anticoagulants; Z91.15 Patient's noncompliance with renal dialysis
CPT/HCPCS: 36415; 36416; 70450; 71045; 80048; 80053; 80069; 80076; 82553; 82805; 83605; 83690; 83735; 83880; 84484; 85025; 86580; 86704; 86705; 86706; 86803; 87040; 87340; 90471; 90670; 90935; 93005; 93010; 93306; 96365; 96375; A4216; G0009; G0257; J0282; J0360; J1160; J1644; J1815; J2405; J7050; J7070; Q4081; S0028